=== PATIENT | female | born 1950 | race Caucasian/White ===

== ENCOUNTER 2019-09-23 08:30 | Outpatient (RCR) | payer MEDICARE, OTHER, SELFPAY ==
[2019-06-28 09:21] VITALS: PULSE 61
--- NOTE | 2019-07-01 16:18 | PCCPR ---
Unable to attend today due to inclement weather.
[2019-07-03 17:29] LABS: Glucose Point of Care 85 (65-105)
[2019-07-03 17:29] LABS: Glucose Point of Care 85 (65-105)
--- NOTE | 2019-08-19 08:07 | PCCPR ---
Absent-neck pain
== END 2019-09-23 18:24 | disposition home or self-care (01) ==
LOC: ANHCPREHAB 08:30
PROVIDERS: PCP Family Medicine; Visit Provider Nurse Practitioner Adult Health
DX: Z95.5 Presence of coronary angioplasty implant and graft (principal)
CPT/HCPCS: 93798

== ENCOUNTER 2020-05-19 08:11 | Outpatient (CLI) | payer MEDICARE, OTHER, SELFPAY ==
--- NOTE | ~2020-05-19 | MM_ITS ---
EXAMINATION: MM screening [facility] BI w alvaro HISTORY: Screening mammogram TECHNIQUE: Craniocaudal and mediolateral oblique 3-D tomosynthesis images were obtained and synthetic 2-D images were generated. CAD analysis was submitted and interpreted. COMPARISON: 02/13/2019, 01/29/2018, 12/14/2016 BREAST PARENCHYMAL COMPOSITION: The breasts are heterogeneously dense, which may obscure small masses . FINDINGS: There is no evidence of suspicious mass, calcification, or architectural distortion to sugg est malignancy in either breast. There has been no suspicious interval change. IMPRESSION: 1. No mammographic evidence of malignancy. 2. Recommend routine screening mammography in one year. BI-RADS Category 1: Negative Reviewed, dictated and finalized at location A.
== END 2020-05-19 08:12 | disposition home or self-care (01) ==
PROVIDERS: PCP Family Medicine; Visit Provider Family Medicine
DX: Z12.31 Encounter for screening mammogram for malignant neoplasm of breast (principal)
CPT/HCPCS: 77063; 77067

== ENCOUNTER 2020-12-07 07:39 | Outpatient (CLI) | payer MEDICARE, OTHER, SELFPAY ==
--- NOTE | ~2020-12-07 | MR_ITS ---
EXAMINATION: MR lumbar spine wo con DATE: 12/07/2020 09:06 INDICATION: Low back pain. TECHNIQUE: Magnetic resonance imaging (MRI) of the lumbar spine was performed without intravenous con trast. Sequences included sagittal T2-weighted FSE, sagittal STIR FSE, sagittal T1-weighted FSE, and axial T2-weighted FSE. COMPARISON: Lumbar spine MRI 01/22/2018 FINDINGS: There is 8 degrees dextrocurvature of lumbar spine. There is 4 mm anterolisthesis of L5 on S1. Vertebral body heights are normal. There is mildly decreased disc height at L4-L5 and moderately decreased disc height at L5-S1. The distal spinal cord signal intensity is normal. The conus medullar is is at L2-L3. There are cysts in the kidneys measuring up to 2.1 cm on the left. The following disc levels are specifically discussed: L1-L2: The disc does not extend beyond the endplate margin. There is mild bilateral facet joint osteo arthritis. There is no neural foraminal stenosis. There is no central canal stenosis. L2-L3: The disc does not extend beyond the endplate margin. There is mild bilateral facet joint osteo arthritis. There is no neural foraminal stenosis. There is no central canal stenosis. L3-L4: The disc does not extend beyond the endplate margin. There is mild right and moderate left fac et joint osteoarthritis. There is no neural foraminal stenosis. There is no central canal stenosis. L4-L5: The disc is bulging. There is mild right and severe left facet joint osteoarthritis. There is mild bilateral neural foraminal stenosis. There is mild central canal stenosis. L5-S1: The disc is bulging. There is severe bilateral facet joint osteoarthritis. There is mild bilat eral neural foraminal stenosis. There is no central canal stenosis. IMPRESSION: 1. Mild lumbar spondylosis, stable from 01/22/2018. Reviewed, dictated and finalized at location B.
== END 2020-12-07 07:40 | disposition home or self-care (01) ==
PROVIDERS: PCP Family Medicine; Visit Provider Nurse Practitioner Family
DX: M47.896 Other spondylosis, lumbar region (principal)
CPT/HCPCS: 72148

== ENCOUNTER 2021-04-14 08:14 | Outpatient (CLI) | payer MEDICARE, OTHER, SELFPAY ==
--- NOTE | ~2021-04-14 | DEXA_ITS ---
Bone Density Report Name: Ammy Kiran Age: 70 Sex: Female Ethnicity: White Date of : 1950 Indication: osteopenia; prior fracture; hysterectomy; Referring Provider: Felipe Mckeon Study: Bone densitometry was performed. Exam Date: April 14, 2021 Accession number: [id number] Bone Density: Region BMD T-score Z-score Classification AP Spine (L1-L4) 0.840 -1.9 0.3 Osteopenia Femoral Neck (Left) 0.731 -1.1 0.8 Osteopenia Total Hip (Left) 0.903 -0.3 1.3 Normal Total Hip Bilateral Avg 0.848 -0.8 0.9 Normal Femoral Neck (Right) 0.787 -0.6 1.3 Normal Total Hip (Right) 0.793 -1.2 0.4 Osteopenia World Health Organization criteria for BMD impression classify patients as: Normal (T-score at or above -1.0), Osteopenia (T-score between -1.0 and -2.5), or Osteoporosis (T-score at or below -2.5). 10-year Fracture Risk(1): Major Osteoporotic Fracture 13% Hip Fracture 1.7% Reported Risk Factors: [place] (), Neck BMD=0.731, BMI=21.2, previous fracture (1) FRAX(R) Version 3.08. Fracture probability calculated for an untreated patient. Fracture probability may be lower if the patient has received treatment. Previous Exams: Region Exam Age BMD T-score BMD Change BMD Change Date g/cm2 vs Baseline vs Previous AP Spine(L1-L4) 04/14/2021 70 0.840 -1.9 -0.091(-9.7%)* -0.040(-4.6%)* 02/13/2019 68 0.880 -1.5 -0.050(-5.4%)* -0.050(-5.4%)* 12/14/2016 66 0.931 -1.1 Total Hip(Left) 04/14/2021 70 0.903 -0.3 -0.054(-5.7%)* -0.039(-4.1%)* 02/13/2019 68 0.942 0.0 -0.015(-1.6%) -0.015(-1.6%) 12/14/2016 66 0.957 0.1 Total Hip(Right) 04/14/2021 70 0.793 -1.2 -0.094(-10.6%) -0.030(-3.6%)* 02/13/2019 68 0.823 -1.0 -0.064(-7.2%)* -0.064(-7.2%)* 12/14/2016 66 0.887 -0.5 *Denotes significance at 95% confidence level, LSC for AP Spine = 0.022 g/cm2, LSC for Total Hip = 0.027 g/cm2 Clinical Information Provided by Patient: Has had a low trauma fracture Has used the following medications: Vitamin D, Calcium Has the following medical conditions: Hysterectomy Patient maximum height was 60.0 Menopause Age: 34 Does not regularly consume dairy products Drinks caffeinated beverages Onset of menses at age 7 Number of children 2 Impression: The patient has low bone mass, based on the Total Spine T-score. The patient has an estimated ten-year risk of hip fracture of 1.7% and an estimated ten-year risk of major fractur
== END 2021-04-14 08:15 | disposition home or self-care (01) ==
LOC: ANHIMG 08:17
PROVIDERS: PCP Family Medicine; Visit Provider Family Medicine
DX: Z78.0 Asymptomatic menopausal state (principal); M85.88 Other specified disorders of bone density and structure, other site; M85.852 Other specified disorders of bone density and structure, left thigh; M85.851 Other specified disorders of bone density and structure, right thigh
CPT/HCPCS: 77080

== ENCOUNTER 2021-04-15 01:03 | Day surgery (SDC) | payer MEDICARE, OTHER, SELFPAY ==
[2021-03-31 14:15] VITALS: BMI 21.6
[2021-04-15 09:42] VITALS: BP 139/53; PULSE 64; RESP 20; TEMP 36.8; O2SAT 99; BMI 21.2
[2021-04-15 09:55] LABS: Glucose Point of Care 110 mg/dl (65-105)
--- NOTE | 2021-04-15 10:17 | WPDANESEPPF ---
Anes - Initial Pre Proc Eval Procedure: Operation Date: 04/15/21 10:30 Proposed Procedures p Screening Colonoscopy - Jose Kramer MD Date/Time: 04/15/21 10:17 Surgeon: Jose Kramer MD Pre Op Diagnosis: hx of colon polyps Patient Data Age: 70 Gender: F Height: 1.5 m Weight: 47.6 kg Last Vital Signs Temp 98.2 F 04/15/21 09:42 Pulse 64 04/15/21 09:42 Resp 20 04/15/21 09:42 BP 139/53 L 04/15/21 09:42 Pulse Ox 99 04/15/21 09:42 Allergies Allergy/AdvReac Type Severity Reaction Status Date / Time clindamycin Allergy Intermediate ITCHING, Verified 04/06/21 11:36 HIVES codeine Allergy Unknown nausea and Verified 04/06/21 11:36 vomiting morphine Allergy Unknown SEVERE Verified 04/06/21 11:36 NAUSEA AND VOMITING MEPERIDINE HCL Allergy Unknown B/P GOES Uncoded 04/06/21 11:36 REALLY HIGH PROCHLORPERAZINE EDISYLATE AdvReac Unknown SEVERE Uncoded 04/06/21 11:36 DEPRESSION Home Medications Medication Instructions Recorded Confirmed Type amlodipine [Norvasc] 2.5 mg PO DAILY 06/28/19 04/06/21 History aspirin [Adult Low Dose Aspirin] 81 mg PO DAILY 06/28/19 04/06/21 History bupropion HCl [Wellbutrin XL] 300 mg PO QAM 06/28/19 04/06/21 History fluticasone propionate [Allergy 2 spray INTRANASAL DAILY PRN 06/28/19 04/06/21 History Relief (fluticasone)] hydrocortisone valerate 1 applic TOPICAL DAILY PRN 06/28/19 04/06/21 History lamotrigine [Lamictal] 100 mg PO DAILY 06/28/19 04/06/21 History meclizine 12.5 mg PO BID PRN 06/28/19 04/06/21 History metoprolol tartrate 25 mg PO BID 06/28/19 04/06/21 History nitroglycerin [Nitrostat] 0.4 mg SUBLINGUAL Q5-15M PRN 06/28/19 04/06/21 History olanzapine [Zyprexa] 2.5 mg PO HS 06/28/19 04/06/21 History valacyclovir [Valtrex] 1,000 mg PO DAILY PRN 06/28/19 04/06/21 History ketoconazole 2 % topical cream 1 applic TOPICAL DAILY PRN 10/08/19 04/06/21 History sodium chloride 5 % eye drops 1 drop EACH EYE QID PRN 10/08/19 04/06/21 History blood sugar diagnostic #100 each 02/11/20 04/06/21 Rx lancets #200 each 02/11/20 04/06/21 Rx naloxone 4 mg/actuation nasal spray 4 mg INTRANASAL Q3M PRN #2 ea 08/25/20 04/06/21 Rx atorvastatin 40 mg tablet 40 mg PO DAILY #90 tablet 03/03/21 04/06/21 Rx docusate sodium 100 mg tablet 100 mg PO BID #180 tablet 03/03/21 04/06/21 Rx fenofibrate 160 mg tablet 160 mg PO DAILY #90 tablet 03/03/21 04/06/21 Rx ferrous sulfate 325 mg (65 mg 325 mg PO DAILY #90 tablet 03/03/21 04/06/21 Rx iron) tablet fexofenadine 180 mg tablet 180 mg PO DAILY #90 tablet 03/03/21 04/06/21 Rx linaclotide 290 mcg capsule 290 mcg PO DAILY #90 cap 03/03/21 04/06/21 Rx metformin 500 mg tablet 500 mg PO TID #270 tablet 03/03/21 04/06/21 Rx multivitamin 1 tablet PO DAILY #90 tablet 03/03/21 04/06/21 Rx ondansetron HCl 8 mg tablet 8 mg PO Q12H PRN #30 tablet 03/03/21 04/06/21 Rx pantoprazole 40 mg tablet,delayed 40 mg PO HS #90 tablet 03/03/21 04/06/21 Rx release polyethylene glycol 3350 17 17 g PO DAILY #850 gm 03/03/21 04/06/21 Rx gram/dose oral powder ropinirole 1 mg tablet 1 mg PO BID #180 tablet 03/03/21 04/06/21 Rx cholecalciferol (vitamin D3) 50 2,000 unit PO DAILY #90 tablet 03/11/21 04/06/21 Rx mcg (2,000 unit) tablet lisinopril 20 mg tablet 20 mg PO DAILY #90 tablet 03/11/21 04/06/21 Rx ticagrelor [Brilinta] 60 mg PO BID 03/31/21 04/15/21 History Laboratory Tests 04/15/21 09:52 POC Capillary Glucose 110 mg/dl H mg/dl (65-105) Patient hx anesthesia problems: none Family hx anesthesia problems: none [facility] Past Medical History Medical History (Updated 04/15/21 @ 10:21 by Jeff Jasso MD) Coronary artery disease involving [place] coronary artery of [place] heart Hypertensive heart disease with heart failure Mixed hyperlipidemia JOSAFAT (obstructive sleep apnea) Type 2 diabetes mellitus with hyperglycemia, without long-term current use of insulin Family History Family History (Reviewed 08/11/20 @ 14
--- NOTE | 2021-04-15 10:33 | PM.HPGS ---
History of Present Illness History of Present Illness Consent: Risks, benefits, and alternatives have been discussed and questions answered. Patient agrees to proceed with procedure. Chief complaint: hx of colon polyps Narrative: Ammy Kiran is a 70 year old female here for colon cancer screening. She has history of polyps Review of Systems Review of Systems: All systems reviewed & are unremarkable except as noted in HPI and below PMFSH Past Medical History Medical History Coronary artery disease involving [place] coronary artery of [place] heart Hypertensive heart disease with heart failure Mixed hyperlipidemia JOSAFAT (obstructive sleep apnea) Type 2 diabetes mellitus with hyperglycemia, without long-term current use of insulin Family History Family History Mother Diabetes mellitus Acute myocardial infarction Cerebrovascular accident Depression Sibling Malignant neoplasm of prostate Family history of coronary artery disease Carcinoma of colon Father Diabetes mellitus Acute myocardial infarction Family history of coronary artery disease Sibling Diabetes mellitus Acute myocardial infarction Depression Other Family history of allergic disorder Family history of arthritis Family history of cardiovascular disease Family history of malignant neoplasm Hypertension Social History Social History Smoking status: Never smoker Second hand tobacco smoke exposure: No Alcohol intake: never Substance use: never Substance use type: does not use Living arrangements: with family Gender identity (if verbalized by the patient): Female Spiritual care concerns: No Meds Home Medications and Allergies Home Medications Medication Instructions Recorded Confirmed Type amlodipine [Norvasc] 2.5 mg PO DAILY 06/28/19 04/06/21 History aspirin [Adult Low Dose Aspirin] 81 mg PO DAILY 06/28/19 04/06/21 History bupropion HCl [Wellbutrin XL] 300 mg PO QAM 06/28/19 04/06/21 History fluticasone propionate [Allergy 2 spray INTRANASAL DAILY PRN 06/28/19 04/06/21 History Relief (fluticasone)] hydrocortisone valerate 1 applic TOPICAL DAILY PRN 06/28/19 04/06/21 History lamotrigine [Lamictal] 100 mg PO DAILY 06/28/19 04/06/21 History meclizine 12.5 mg PO BID PRN 06/28/19 04/06/21 History metoprolol tartrate 25 mg PO BID 06/28/19 04/06/21 History nitroglycerin [Nitrostat] 0.4 mg SUBLINGUAL Q5-15M PRN 06/28/19 04/06/21 History olanzapine [Zyprexa] 2.5 mg PO HS 06/28/19 04/06/21 History valacyclovir [Valtrex] 1,000 mg PO DAILY PRN 06/28/19 04/06/21 History ketoconazole 2 % topical cream 1 applic TOPICAL DAILY PRN 10/08/19 04/06/21 History sodium chloride 5 % eye drops 1 drop EACH EYE QID PRN 10/08/19 04/06/21 History blood sugar diagnostic #100 each 02/11/20 04/06/21 Rx lancets #200 each 02/11/20 04/06/21 Rx naloxone 4 mg/actuation nasal spray 4 mg INTRANASAL Q3M PRN #2 ea 08/25/20 04/06/21 Rx atorvastatin 40 mg tablet 40 mg PO DAILY #90 tablet 03/03/21 04/06/21 Rx docusate sodium 100 mg tablet 100 mg PO BID #180 tablet 03/03/21 04/06/21 Rx fenofibrate 160 mg tablet 160 mg PO DAILY #90 tablet 03/03/21 04/06/21 Rx ferrous sulfate 325 mg (65 mg 325 mg PO DAILY #90 tablet 03/03/21 04/06/21 Rx iron) tablet fexofenadine 180 mg tablet 180 mg PO DAILY #90 tablet 03/03/21 04/06/21 Rx linaclotide 290 mcg capsule 290 mcg PO DAILY #90 cap 03/03/21 04/06/21 Rx metformin 500 mg tablet 500 mg PO TID #270 tablet 03/03/21 04/06/21 Rx multivitamin 1 tablet PO DAILY #90 tablet 03/03/21 04/06/21 Rx ondansetron HCl 8 mg tablet 8 mg PO Q12H PRN #30 tablet 03/03/21 04/06/21 Rx pantoprazole 40 mg tablet,delayed 40 mg PO HS #90 tablet 03/03/21 04/06/21 Rx release polyethylene glycol 3350 17 17 g PO DAILY #850 gm 03/03/21 04/06/21 Rx gram/dose oral powder ropinirole 1 mg tablet
[2021-04-15] MEDS: LACTATED RINGERS 1,000 ML 150 ML IV CONT (11:06)
[2021-04-15 11:10] VITALS: BP 119/62; PULSE 65; RESP 20; O2SAT 99
[2021-04-15 11:20] VITALS: BP 140/63; PULSE 62; RESP 18; O2SAT 100
[2021-04-15 11:30] VITALS: BP 150/70; PULSE 60; RESP 20; O2SAT 100
== END 2021-04-15 11:28 | disposition home or self-care (01) ==
PROVIDERS: PCP Family Medicine; Visit Provider Internal Medicine Gastroenterology
PROC: 0DJD8ZZ Inspection of Lower Intestinal Tract, Via Natural or Artificial Opening Endoscopic (ICD-10-PCS; CPT 45378; principal; 2021-04-15 10:30)
DX: Z12.11 Encounter for screening for malignant neoplasm of colon (principal); D12.5 Benign neoplasm of sigmoid colon; I11.0 Hypertensive heart disease with heart failure; I50.9 Heart failure, unspecified; I25.10 Atherosclerotic heart disease of native coronary artery without angina pectoris; E11.65 Type 2 diabetes mellitus with hyperglycemia; E78.2 Mixed hyperlipidemia; G47.33 Obstructive sleep apnea (adult) (pediatric)
CPT/HCPCS: 45380; 82948; 88305; J7120

== ENCOUNTER → 2021-06-23 10:24 | Outpatient (CLI) | payer MEDICARE, OTHER, SELFPAY ==
--- NOTE | ~2021-06-23 | XR_ITS ---
EXAMINATION: XR wrist LT min 3V DATE: 06/23/2021 10:42 INDICATION: Left wrist pain TECHNIQUE: Posteroanterior, ulnar deviation, oblique, and lateral views of the left wrist were obtain ed. COMPARISON: 10/21/2014 FINDINGS: There are changes of interval trapezium resection. There is moderate osteoarthritis at the scaphoid/trapezoid joint. No fracture is identified. The soft tissues are unremarkable. IMPRESSION: 1. Interval surgical change without acute osseous abnormality. Reviewed, dictated and finalized at location B.
== END ==
PROVIDERS: PCP Family Medicine; Visit Provider Family Medicine
DX: M19.032 Primary osteoarthritis, left wrist (principal)
CPT/HCPCS: 73110

== ENCOUNTER 2021-07-16 09:03 | Outpatient (CLI) | payer MEDICARE, OTHER, SELFPAY ==
--- NOTE | ~2021-07-16 | MM_ITS ---
EXAMINATION: MM screening [facility] BI w alvaro HISTORY: Screening mammogram TECHNIQUE: Craniocaudal and mediolateral oblique 3-D tomosynthesis images were obtained and synthetic 2-D images were generated. CAD analysis was submitted and interpreted. COMPARISON: No prior mammogram is available for comparison at this institution. BREAST PARENCHYMAL COMPOSITION: The breasts are heterogeneously dense, which may obscure small masses . FINDINGS: Scattered bilateral benign calcifications are noted. There is no evidence of suspicious mas s, calcification, or architectural distortion to suggest malignancy in either breast. There has been no suspicious interval change. IMPRESSION: 1. No mammographic evidence of malignancy. 2. Recommend routine screening mammography in one year. BI-RADS Category 2: Benign finding(s). Reviewed, dictated and finalized at location A. 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
== END 2021-07-16 09:04 | disposition home or self-care (01) ==
LOC: ANHIMG 09:06
PROVIDERS: PCP Family Medicine; Visit Provider Family Medicine
DX: Z12.31 Encounter for screening mammogram for malignant neoplasm of breast (principal)
CPT/HCPCS: 77063; 77067

== ENCOUNTER → 2021-07-27 16:21 | Outpatient (CLI) | payer MEDICARE, OTHER, SELFPAY ==
--- NOTE | ~2021-07-27 | XR_ITS ---
EXAMINATION: XR knee RT 3V DATE: 07/27/2021 16:52 INDICATION: Right knee pain TECHNIQUE: Three views of the right knee were obtained. COMPARISON: 11/07/2017 FINDINGS: There are changes of total knee arthroplasty. No hardware failure or loosening is identifie d. There is no fracture. No joint effusion/synovitis. Soft tissues are unremarkable. IMPRESSION: 1. Changes of knee joint effusion without acute abnormality identified. Reviewed, dictated and finalized at location A. 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
== END ==
PROVIDERS: PCP Family Medicine; Visit Provider Family Medicine
DX: M25.461 Effusion, right knee (principal)
CPT/HCPCS: 73562

== ENCOUNTER → 2022-03-10 14:39 | Outpatient (CLI) | payer MEDICARE, OTHER, SELFPAY ==
--- NOTE | ~2022-03-10 | XR_ITS ---
EXAMINATION: XR_CERV2-3V_CR DATE: 03/10/2022 15:07 INDICATION: Neck pain. TECHNIQUE: 3 views of cervical spine were obtained. COMPARISON: cervical spine radiographs 07/03/2013, CT cervical spine 08/20/2018 FINDINGS: There is 2 mm anterolisthesis of C7 on T1. There is 4 degrees levocurvature of cervical spi ne. Vertebral body heights are normal. There is severely decreased disc height at C5-C6 and moderatel y decreased disc height at C6-C7. There is ankylosis of the facet joints at C2-C3. There is severe bi lateral facet joint osteoarthritis from C3-C4 through C7-T1. There is mild central canal stenosis at C5-C6 and C6-C7. No prevertebral soft tissue swelling. IMPRESSION: 1. Severe cervical spondylosis. Reviewed, dictated and finalized at location A.
== END ==
PROVIDERS: PCP Family Medicine; Visit Provider Nurse Practitioner Family
DX: M47.892 Other spondylosis, cervical region (principal)
CPT/HCPCS: 72040

== ENCOUNTER 2022-06-29 09:39 | Outpatient (CLI) | payer MEDICARE, OTHER, SELFPAY ==
--- NOTE | 2022-06-29 10:56 | ECG_ITS ---
Measurements Intervals [place] Rate: 60 P: 39 MS: 170 QRS: -24 QRSD: 85 T: -7 QT: 407 QTc: 408 Interpretive Statements SINUS RHYTHM EARLY PRECORDIAL R/S TRANSITION LEFT VENTRICULAR HYPERTROPHY BORDERLINE T WAVE ABNORMALITY- INFERIOR LEADS BASELINE ARTIFACT- I, II, III, AVR, AVL, AVF, V6 BORDERLINE ECG COMPARED TO ECG 06/06/2019 08:51:18 T WAVE ABNORMALITY IN ANT/LAT LEADS- CONSIDER ISCHEMIA RESOLVED Electronically Signed On 06-29-2022 11:54:12 GEAR GRINDER by Hemanth Gutierrez D.O.
[2022-06-29 11:28] LABS: Hematocrit 37.7 % (37.0-47.0); Hemoglobin 11.8 g/dL (12.0-15.0)
[2022-06-29 11:37] LABS: Anion Gap 15 mmol/L (8-16); Blood Urea Nitrogen 32 mg/dL (7-17); Calcium 9.9 mg/dL (8.4-10.2); Carbon Dioxide 22 mmol/L (22-30); Chloride 106 mmol/L (98-107); Estimated Glomerular Filt Rate 34; Glucose 110 mg/dL (65-110); Potassium 4.6 mmol/L (3.4-5.0); Sodium 143 mmol/L (137-145)
[2022-06-29 11:38] LABS: Prothrombin Time 12.9 Seconds (11.1-14.7)
== END 2022-06-29 09:40 | disposition home or self-care (01) ==
LOC: ANHSURGERY 09:47
PROVIDERS: Anesthesiology; PCP Family Medicine; Visit Provider Urology
DX: N81.6 Rectocele (principal); E11.29 Type 2 diabetes mellitus with other diabetic kidney complication; D50.9 Iron deficiency anemia, unspecified; Z01.818 Encounter for other preprocedural examination; I12.9 Hypertensive chronic kidney disease with stage 1 through stage 4 chronic kidney disease, or unspecified chronic kidney disease; N18.9 Chronic kidney disease, unspecified; R94.31 Abnormal electrocardiogram [ECG] [EKG]
CPT/HCPCS: 36415; 80048; 85014; 85018; 85610; 85730; 87077; 87086; 87186; 93005

== ENCOUNTER 2022-07-08 01:22 | Day surgery (SDC) | payer MEDICARE, OTHER, SELFPAY ==
--- NOTE | 2022-06-29 09:47 | PC.NURSE ---
Report to the Outpatient Waiting Room, entrance under the green pavilion located off [facility], at time __7:30AM on date __07/08/22 . Planned Procedure Time: __9:30AM . Time changes happen often and if your time is changed the preop area will call you the afternoon before. - You and your visitor will be asked to self-screen and do not enter if you have any COVID symptoms. - We encourage only one visitor and NO visitors under age 16 are allowed at this time. Your visitor will receive communication by the phone number that is given day of service. - The patient visitor is requested to social distance or may leave the building when not with patient due to restrictions. - A mask is required within the hospital. Patients may have clear liquids (water, carbonated beverages, clear teas, apple juice) until 3 hours prior to surgery with a maximum of 20 ounces. - No food from midnight until time of surgery Take the following medications with a SIP of water the morning of surgery: _AMLODIPINE, BUPROPION, LAMOTRIGINE, MECLIZINE NEEDED, METOPROLOL, EYE DROPS, ONDANSETRON & SCOPOLAMINE PATCH NEEDED Medications to discontinue per physician ___HOLD ASPIRIN 7 DAYS PRE-OP- LAST DOSE 07/01/22, HOLD BRILINTA PER DR FAN* PATIENT CHECKING WITH OFFICE, HOLD VITAMINS/SUPPLEMENTS 3 DAYS PRE-OP - LAST DOSE 07/04/22 Please no make-up, nail yemeni, hairspray, perfume, deodorant, or body powder the day of surgery. No jewelry (including any body piercings) or valuables the day of surgery, leave them at home. Please take a shower or bath the night before, or the morning of, surgery with an antibacterial soap. Wear comfortable, loose fitting clothing. Children are encouraged to wear pajamas. - Jewelry must be removed prior to entering the operating room. Rings and piercings that are not removed may be cut off. - The hospital will not accept responsibility for valuables. - Please leave all valuables, including medications, at home the day of surgery. If you are going home after surgery, a licensed show horse driver must drive you home. - NO public transportation without another adult. - We recommend that an adult stay with you for 24 hours following discharge. - We also recommend that you do not drive, make important decision, drink alcoholic beverages, or take any drugs that were not prescribed by your health care provider for at least 24 hours after your discharge time. Follow any additional instructions given to you from your surgeon. If you or anyone in your household have experienced Covid symptoms in the past week, please notify your surgeon or the nurse liaison at the phone number below for possible testing. Telephone instructions given to __PATIENT and asked if any additional questions and then verbalized understanding. Patient advised to call surgeon office or pre surgery nurse liaison [phone] if any additional questions.
[2022-06-29 10:20] VITALS: BP 142/64; PULSE 60; RESP 16; TEMP 37.4; O2SAT 96; BMI 25.7
--- NOTE | 2022-07-03 13:55 | PM.IMHP ---
H&P: HPI History of Present Illness Date/Time: 07/03/22 13:55 Chief Complaint: prolapse and stress incontinence Narrative: she has had multiple prolapse operations. She has had a stress incontinence procedure in the past. She has a rectocele which is symptomatic. 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 We discussed all options. She is here for surgical correction. 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 Hypertensive heart disease with heart failure Mixed hyperlipidemia JOSAFAT (obstructive sleep apnea) Type 2 diabetes mellitus with hyperglycemia, without long-term current use of insulin Family History Family History Mother Diabetes mellitus Acute myocardial infarction Cerebrovascular accident Depression Sibling Malignant neoplasm of prostate Family history of coronary artery disease Carcinoma of colon Father Diabetes mellitus Acute myocardial infarction Family history of coronary artery disease Sibling Diabetes mellitus Acute myocardial infarction Depression Other Family history of allergic disorder Family history of arthritis Family history of cardiovascular disease Family history of malignant neoplasm Hypertension Social History Social History Social History: Smoking status: Never smoker Second hand tobacco smoke exposure: No Alcohol intake: never Substance use: never Substance use type: does not use Additional living arrangements comments: HUSB Gender identity (if verbalized by the patient): Female Sexual Orientation (if Verbalized by the Patient): Straight or Heterosexual Spiritual care concerns: No Meds Home Medications and Allergies Home Medications Medication Instructions Recorded Confirmed Type amlodipine 2.5 mg tablet (Norvasc) 2.5 mg PO DAILY 06/28/19 06/29/22 History aspirin 81 mg tablet,delayed 81 mg PO DAILY 06/28/19 06/29/22 History release (Adult Low Dose Aspirin) bupropion HCl 300 mg 24 hr tablet, 300 mg PO QAM 06/28/19 06/29/22 History extended release (Wellbutrin XL) fluticasone propionate 50 2 spray intranasal DAILY PRN 06/28/19 06/29/22 History mcg/actuation nasal allergies spray,suspension (Allergy Relief (fluticasone)) lamotrigine 100 mg tablet 100 mg PO DAILY 06/28/19 06/29/22 History (Lamictal) metoprolol tartrate 25 mg tablet 25 mg PO BID 06/28/19 06/29/22 History nitroglycerin 0.4 mg sublingual 0.4 mg sublingual Q5-15M PRN Chest 06/28/19 06/29/22 History tablet (Nitrostat) Pain olanzapine 2.5 mg tablet (Zyprexa) 2.5 mg PO HS 06/28/19 06/29/22 History valacyclovir 1 gram tablet 1,000 mg PO DAILY PRN Cold Sores 06/28/19 06/29/22 History (Valtrex) ketoconazole 2 % topical cream 1 applic topical DAILY PRN Rash 10/08/19 06/29/22 History sodium chloride 5 % eye drops 1 drop ophthalmic (eye) QID PRN 10/08/19 06/29/22 History ([place] [address]) Dry Eyes naloxone 4 mg/actuation nasal 4 mg intranasal Q3M PRN opioid 08/25/20 06/29/22 Rx spray (Narcan) overdose #2 ea ticagrelor 60 mg tablet (Brilinta) 60 mg PO BID 03/31/21 06/29/22 History atorvastatin 40 mg tablet 40 mg PO DAILY #90 tabs 09/06/21 06/29/22 Rx blood sugar diagnostic (FreeStyle #100 ea 09/06/21 03/08/22 Rx Lite Strips) cholecalciferol (vitamin D3) 50 2,000 unit PO DAILY #90 tabs 09/06/21 06/29/22 Rx mcg (2,000 unit) tablet (Vitamin D3) docusate sodium 100 mg tablet 100 mg PO BID #180 tabs 09/06/21 06/29/22 Rx fenofibrate 160 mg tablet 160 mg PO DAILY #90 tabs 09/06/21 06/29/22 Rx ferrous sulfate 325 mg
--- NOTE | 2022-07-07 14:12 | WPDANESEPPF ---
Anes - Initial Pre Proc Eval Procedure: Operation Date: 07/08/22 09:30 Proposed Procedures p Rectocele Repair - Aubrey Stapleton MD s Cystoscopy with Bulkamid Injection - Aubrey Stapleton MD Date/Time: 07/07/22 14:12 Surgeon: Aubrey Stapleton MD Pre Op Diagnosis: rectocele Patient Data Age: 72 Gender: F Height: 1.5 m Weight: 57.7 kg Last Vital Signs Temp 37.4 C 06/29/22 10:20 Pulse 60 06/29/22 10:20 Resp 16 06/29/22 10:20 BP 142/64 H 06/29/22 10:20 Pulse Ox 96 06/29/22 10:20 O2 Del Method Room Air 06/29/22 10:20 Allergies Allergy/AdvReac Type Severity Reaction Status Date / Time clindamycin Allergy Intermediate ITCHING, Verified 06/29/22 10:03 HIVES codeine AdvReac Unknown nausea and Verified 06/29/22 10:03 vomiting morphine AdvReac Unknown SEVERE Verified 06/29/22 10:03 NAUSEA AND VOMITING MEPERIDINE HCL Allergy Unknown B/P GOES Uncoded 06/29/22 10:03 REALLY HIGH, SEVERE BOGGS PROCHLORPERAZINE EDISYLATE AdvReac Unknown SEVERE Uncoded 06/29/22 10:03 DEPRESSION Home Medications Medication Instructions Recorded Confirmed Type amlodipine 2.5 mg tablet (Norvasc) 2.5 mg PO DAILY 06/28/19 07/08/22 History aspirin 81 mg tablet,delayed 81 mg PO DAILY 06/28/19 07/08/22 History release (Adult Low Dose Aspirin) bupropion HCl 300 mg 24 hr tablet, 300 mg PO QAM 06/28/19 07/08/22 History extended release (Wellbutrin XL) fluticasone propionate 50 2 spray intranasal DAILY PRN 06/28/19 07/08/22 History mcg/actuation nasal allergies spray,suspension (Allergy Relief (fluticasone)) lamotrigine 100 mg tablet 100 mg PO DAILY 06/28/19 07/08/22 History (Lamictal) metoprolol tartrate 25 mg tablet 25 mg PO BID 06/28/19 07/08/22 History nitroglycerin 0.4 mg sublingual 0.4 mg sublingual Q5-15M PRN Chest 06/28/19 07/08/22 History tablet (Nitrostat) Pain olanzapine 2.5 mg tablet (Zyprexa) 2.5 mg PO HS 06/28/19 07/08/22 History valacyclovir 1 gram tablet 1,000 mg PO DAILY PRN Cold Sores 06/28/19 07/08/22 History (Valtrex) ketoconazole 2 % topical cream 1 applic topical DAILY PRN Rash 10/08/19 07/08/22 History sodium chloride 5 % eye drops 1 drop ophthalmic (eye) QID PRN 10/08/19 07/08/22 History (Anderson 128) Dry Eyes naloxone 4 mg/actuation nasal 4 mg intranasal Q3M PRN opioid 08/25/20 07/08/22 Rx spray (Narcan) overdose #2 ea ticagrelor 60 mg tablet (Brilinta) 60 mg PO BID 03/31/21 07/08/22 History atorvastatin 40 mg tablet 40 mg PO DAILY #90 tabs 09/06/21 07/08/22 Rx blood sugar diagnostic (FreeStyle #100 ea 09/06/21 07/08/22 Rx Lite Strips) cholecalciferol (vitamin D3) 50 2,000 unit PO DAILY #90 tabs 09/06/21 07/08/22 Rx mcg (2,000 unit) tablet (Vitamin D3) docusate sodium 100 mg tablet 100 mg PO BID #180 tabs 09/06/21 07/08/22 Rx fenofibrate 160 mg tablet 160 mg PO DAILY #90 tabs 09/06/21 07/08/22 Rx ferrous sulfate 325 mg (65 mg 325 mg PO DAILY #90 tabs 09/06/21 07/08/22 Rx iron) tablet fexofenadine 180 mg tablet 180 mg PO DAILY #90 tabs 09/06/21 07/08/22 Rx lancets #200 ea 09/06/21 07/08/22 Rx linaclotide 290 mcg capsule 290 mcg PO DAILY #90 caps 09/06/21 07/08/22 Rx (Linzess) lisinopril 20 mg tablet 20 mg PO DAILY #90 tabs 09/06/21 07/08/22 Rx meclizine 25 mg tablet 12.5 mg PO BID PRN Motion Sickness 09/06/21 07/08/22 Rx #180 tabs multivitamin 1 tablet PO DAILY #90 tabs 09/06/21 07/08/22 Rx ondansetron HCl 8 mg tablet 8 mg PO Q12H PRN Nausea #30 tabs 09/06/21 07/08/22 Rx pantoprazole 40 mg tablet,delayed 40 mg PO HS #90 tabs 09/06/21 07/08/22 Rx release polyethylene glycol 3350 17 17 g PO DAILY #850 grams 09/06/21 07/08/22 Rx gram/dose oral powder (Miralax) ropinirole 1 mg tablet 1 mg PO BID #180 tabs 09/06/21 07/08/22 Rx metformin 500 mg tablet 500 mg PO BID #180 tabs 10/15/21 07/08/22 Rx scopolamine base 1 mg over 3 days 1 patch transdermal Q3D PRN motion 11/02/21 07/08/22 Rx transdermal patch bianca
[2022-07-08] VITALS (9 sets, daily range): BP systolic 125–161; BP diastolic 52–88; PULSE 59–83; RESP 12–83; TEMP 36.7–36.9; O2SAT 96–100
--- NOTE | 2022-07-08 07:13 | WPDHPUPDATE1 ---
History and Physical Update Update Date/Time: 07/08/22 07:13 History and Physical has been reviewed, including an updated exam of the patient. There are NO changes in the patient's condition. Risks, benefits, and alternatives have been discussed and questions answered. Patient agrees to proceed with procedure.
[2022-07-08] MEDS: LACTATED RINGERS 1,000 ML 30 ML IV CONT (08:15)
[2022-07-08 08:28] LABS: Glucose Point of Care 110 mg/dl (65-105)
[2022-07-08] MEDS: ceFAZolin 2 GM/D5W 50 ML 2 GM/50 ML BAG IVPB (09:24)
[2022-07-08] MEDS: LIDO 2%/EPINEPHRINE 1:100,000 50 ML VIAL 20 ML INFILTRATE (09:46)
[2022-07-08] MEDS: LIDOCAINE HCL 2% GEL UROJET 10 ML PKG MUCOUS MEM (10:12)
--- NOTE | 2022-07-08 10:32 | P.OP_ITS ---
Procedure Note - Detailed Date of Procedure 07/08/22 Pre-op Diagnosis rectocele , female perineal laxity. Intrinsic sphincter deficiency Post-op Diagnosis Same Procedure Performed Rectocele repair Perineal repair Cystoscopy injection of bulking agent Surgeon Aubrey Stapleton MD Anesthesia General Indications This woman sent multiple prolapse repairs. She has had a stress incontinence procedure in the past. She has no cystocele. She has a rectocele/enterocele. 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 She presents for the above. She understands risks of bleeding, infection, damage to bowel or surrounding organs, fistula formation, postoperative incontinence, postop retent ion requiring catheterization, need for ancillary procedures, hip and leg pain, dyspareunia. She declined colpocleisis. She is not sexually active. She understands she is at high risk of failure due to her multiple prolapse procedures Findings Successful prolapse repair. Extremely thin vaginal tissues and of poor quality. Description of Procedure She has correctly identified. Informed consent obtained. She from the operating room. She was given general anesthesia. She was placed in the dorsal lithotomy position. She was prepped and draped in a sterile fashion. Time-out performed. I placed a [place] retractor. I placed a Sotomayor catheter. She has no cystocele. She has a fixed urethra. Her posterior vaginal wall shows a rectocele/enterocele to the level of the introitus. I grasped the rectocele with Allis clamps. I infiltrated the taste tissues with local mixed with epinephrine. I made a midline vaginal incision. I dissected out laterally taking great care not to injure the vaginal wall or the underlying bowel. Of note the vaginal wall tissues were quite thin, atrophic, and of poor quality. I dissected out laterally. I also dissected out towards the apex. There was quite a bit of scarring apically. I then performed a plication rectocele/enterocele repair. I did not enter the peritoneum. I performed a plication with interrupted 0 Vicryl sutures. I then trimmed excess vaginal mucosa. I closed the vaginal mucosa with a running 2-0 Vicryl suture. There wa s excellent support of the rectocele/enterocele. I then anesthetized a sami- shaped area of skin on the perineum. I removed this area of skin. I performed a perineorrhaphy. I used 0 Vicryl sutures. I then used 2-0 Vicryl to close mucosa to mucosa. I was overall happy with the prolapse repair. I then turned my attention towards the bulking agent. Brief cystoscopy revealed a cellule and some mild trabeculations in the bladder. No tumors or other abnormalities. Ureters were normal. Urethra was open consistent with intrinsic sphincter deficiency. I injected my for bulking agent circumferentially. I formed 4 pillows collapsing the urethra. I did this 2 cm distal the bladder neck. I left the bladder partially full. I re-examined the repair. There was excellent hemostasis. On rectal exam there is no evidence of rectal or bowel injury. She was awakened and transferred to PACU in stable condition. Estimated Blood Loss -5.0 Drains No Packing No Pathology None sent Complications No immediate complications Disposition PACU
[2022-07-08 10:33] LABS: Glucose Point of Care 112 mg/dl (65-105)
== END 2022-07-08 12:30 | disposition home or self-care (01) ==
PROVIDERS: PCP Family Medicine; Visit Provider Urology
PROC: 0JQC0ZZ Repair Pelvic Region Subcutaneous Tissue and Fascia, Open Approach (ICD-10-PCS; CPT 45560; principal; 2022-07-08 09:30)
PROC: 3E0K8GC Introduction of Other Therapeutic Substance into Genitourinary Tract, Via Natural or Artificial Opening Endoscopic (ICD-10-PCS; CPT 57250; 2022-07-08 09:30)
DX: N81.6 Rectocele (principal); N36.42 Intrinsic sphincter deficiency (ISD); I25.10 Atherosclerotic heart disease of native coronary artery without angina pectoris; I13.10 Hypertensive heart and chronic kidney disease without heart failure, with stage 1 through stage 4 chronic kidney disease, or unspecified chronic kidney disease; E11.22 Type 2 diabetes mellitus with diabetic chronic kidney disease; N18.9 Chronic kidney disease, unspecified; E78.2 Mixed hyperlipidemia; G47.33 Obstructive sleep apnea (adult) (pediatric); Z79.82 Long term (current) use of aspirin; Z79.01 Long term (current) use of anticoagulants; Z79.84 Long term (current) use of oral hypoglycemic drugs
CPT/HCPCS: 57250; 51715; 82948; J0690; J1100; J2405; J2704; J3010; J7030; J7120; L8606

== ENCOUNTER 2022-10-06 08:10 | Outpatient (CLI) | payer MEDICARE, OTHER, SELFPAY ==
--- NOTE | ~2022-10-06 | MM_ITS ---
EXAMINATION: MM screening [place] BI w alvaro HISTORY: Screening mammogram TECHNIQUE: Craniocaudal and mediolateral oblique 3-D tomosynthesis images were obtained and synthetic 2-D images were generated. CAD analysis was submitted and interpreted. COMPARISON: 07/16/2021, 05/19/2020, 02/13/2019 bilateral screening mammogram examinations BREAST PARENCHYMAL COMPOSITION: The breasts are heterogeneously dense, which may obscure small masses . FINDINGS: Occasional bilateral benign calcifications. There is no evidence of suspicious mass, calcif ication, or architectural distortion to suggest malignancy in either breast. There has been no suspic ious interval change. IMPRESSION: 1. No mammographic evidence of malignancy. 2. Recommend routine screening mammography in one year. BI-RADS Category 2: Benign finding(s). Reviewed, dictated and finalized at location A. 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
== END 2022-10-06 08:11 | disposition home or self-care (01) ==
PROVIDERS: PCP Family Medicine; Visit Provider Family Medicine
DX: Z12.31 Encounter for screening mammogram for malignant neoplasm of breast (principal)
CPT/HCPCS: 77063; 77067

== ENCOUNTER 2023-08-16 08:23 | Outpatient (CLI) | payer MEDICARE, OTHER, SELFPAY ==
--- NOTE | ~2023-08-16 | DEXA_ITS ---
Bone Density Report Name: VILMA PAT Age: 73 Sex: Female Ethnicity: White Date of : 1950 Indication: osteopenia; monitoring treatment; hysterectomy; rheumatoid arthritis; Referring Provider: SCAR BROWNING Study: Bone densitometry was performed. Exam Date: August 16, 2023 Accession number: [id number] Bone Density: Region BMD T-score Z-score Classification AP Spine(L1-L4) 0.867 -1.6 0.7 Osteopenia Femoral Neck (Left) 0.708 -1.3 0.8 Osteopenia Total Hip (Left) 0.856 -0.7 1.0 Normal World Health Organization criteria for BMD impression classify patients as: Normal (T-score at or above -1.0), Osteopenia (T-score between -1.0 and -2.5), or Osteoporosis (T-score at or below -2.5). 10-year Fracture Risk: FRAX not reported because: Treated for osteoporosis Previous Exams: Region Exam Age BMD T-score BMD Change BMD Change Date g/cm2 vs Baseline vs Previous AP Spine (L1-L4) 08/16/2023 73 0.867 -1.6 -0.064 (-6.8%) 0.027 (3.2%)* 04/14/2021 70 0.840 -1.9 -0.091 (-9.7%) -0.040 (-4.6%) 02/13/2019 68 0.880 -1.5 -0.050 (-5.4%) -0.050 (-5.4%) 12/14/2016 66 0.931 -1.1 Total Hip(Left) 08/16/2023 73 0.856 -0.7 -0.101 (-10.6% -0.047 (-5.2%) 04/14/2021 70 0.903 -0.3 -0.054 (-5.7%) -0.039 (-4.1%) 02/13/2019 68 0.942 0.0 -0.015 (-1.6%) -0.015 (-1.6%) 12/14/2016 66 0.957 0.1 *Denotes significance at 95% confidence level, LSC for AP Spine = 0.022 g/cm2, LSC for Total Hip = 0.027 g/cm2 Clinical Information Provided by Patient: Has rheumatoid arthritis Is being treated for osteoporosis Has used the following medications: Vitamin D, Calcium Has the following medical conditions: Hysterectomy Patient maximum height was 60 Menopause Age: 34 Drinks caffeinated beverages Onset of menses at age 8 Number of children 2 Impression: The patient has low bone mass, based on the Total Spine T-score. The BMD for the Total Hip(Left) decreased, changing by -5.2% since the last DXA exam. Discussion: SIGNIFICANT BONE LOSS OBSERVED. Adherence to therapy (including calcium and vitamin D intake) should be assessed. If compliance is not a factor, review management and exclusion of secondary causes of bone loss. It is important to ask patients whether they are taking their medications and to encourage continued and appropriate compliance with their osteoporosis therapies to reduce fracture risk. It is also important to review their risk factors and encourage appropriate calcium and vitamin D intakes, exercise,
== END 2023-08-16 08:24 | disposition home or self-care (01) ==
LOC: ANHIMG 08:24
PROVIDERS: PCP Family Medicine; Visit Provider Family Medicine
DX: Z78.0 Asymptomatic menopausal state (principal); M85.88 Other specified disorders of bone density and structure, other site; M85.852 Other specified disorders of bone density and structure, left thigh
CPT/HCPCS: 77080

== ENCOUNTER → 2023-09-12 08:33 | Outpatient (CLI) | payer MEDICARE, OTHER, SELFPAY ==
--- NOTE | ~2023-09-12 | MR_ITS ---
MRI of the cervical spine Clinical History: Radiculopathy Technique: Axial T2-weighted and gradient images, and sagittal T1-weighted, T2-weighted, and STIR dirk ges were acquired. Findings: There is no fracture or subluxation of the cervical spine. Vertebral bodies maintain normal height and alignment. No suspicious bone marrow signal abnormality seen. At C2-C3, there is no disc bulge or herniation. No spinal canal stenosis, cord compression, or neural foraminal narrowing. At C3-C4, there is mild disc osteophyte complex. No spinal canal stenosis or cord compression. There is bilateral neural foraminal narrowing, left worse than right, with bilateral facet arthropathy. At C4-C5, there is minimal disc osteophyte complex. There is minimal canal stenosis without rodríguez cor d compression. There is bilateral neural foraminal narrowing with bilateral facet arthropathy. At C5-C6, there is disc osteophyte complex. No rodríguez canal stenosis or cord compression. There is marcelina ateral neural foraminal narrowing, right worse than left, with bilateral facet arthropathy. At C6-C7, there is disc osteophyte complex without cord compression or canal stenosis. Neural foramin a are preserved, despite mild facet arthropathy bilaterally. No abnormal signal seen in the spinal cord. Paravertebral soft tissues are unremarkable. Impression: [id number] degenerative spondylosis, as above. Reviewed, dictated and finalized at [facility]. 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
== END ==
PROVIDERS: PCP Nurse Practitioner Family; Visit Provider Nurse Practitioner Family
DX: M43.02 Spondylolysis, cervical region (principal)
CPT/HCPCS: 72141

== ENCOUNTER 2023-12-11 08:07 | Emergency (ER) | payer MEDICARE, OTHER, SELFPAY ==
--- NOTE | 2023-12-11 08:12 | ED.SKABFB ---
HPI - Skin/Abscess/Foreign Bdy General Chief complaint: Skin/Abscess/Foreign Body Stated complaint: Bug Bite Time Seen by Provider: 12/11/23 08:40 Source: patient and RN notes reviewed Mode of arrival: ambulatory Limitations: dementia History of Present Illness HPI narrative: 73-year-old female presents concern for a bug bite to her right forearm. Reports on Monday she was shopping for plants when she felt a sting on her right forearm. Reports she removed the a ?black spot? from the sting site later that day. She reports since then the area has become tender, swollen and discolored. She reports she had 1 episode of vomiting on Monday. She denies fever, aches, chills, sweats. She denies swollen lips, swollen tongue, trouble breathing. She denies itching MD complaint: other (Redness) Related Data Home Medications Medication Instructions Recorded Confirmed aspirin 81 mg tablet,delayed 81 mg PO DAILY 06/28/19 09/19/23 release (Adult Low Dose Aspirin) bupropion HCl 300 mg 24 hr tablet, 300 mg PO QAM 06/28/19 09/19/23 extended release (Wellbutrin XL) fluticasone propionate 50 2 spray intranasal DAILY PRN 06/28/19 09/19/23 mcg/actuation nasal allergies spray,suspension (Allergy Relief (fluticasone)) lamotrigine 100 mg tablet 100 mg PO DAILY 06/28/19 09/19/23 (Lamictal) metoprolol tartrate 25 mg tablet 25 mg PO BID 06/28/19 09/19/23 nitroglycerin 0.4 mg sublingual 0.4 mg sublingual Q5-15M PRN Chest 06/28/19 09/19/23 tablet (Nitrostat) Pain olanzapine 2.5 mg tablet (Zyprexa) 2.5 mg PO HS 06/28/19 09/19/23 ketoconazole 2 % topical cream 1 applic topical DAILY PRN Rash 10/08/19 09/19/23 sodium chloride 5 % eye drops 1 drop ophthalmic (eye) QID PRN 10/08/19 09/19/23 ([place]ers[place] 128) Dry Eyes calcium carbonate 600 mg-vitamin 1 tablet PO DAILY 06/29/22 09/19/23 D3 5 mcg (200 unit) tablet triamcinolone acetonide 0.1 % 1 applic topical QID PRN Rash 06/29/22 09/19/23 topical cream Allergies Allergy/AdvReac Type Severity Reaction Status Date / Time clindamycin Allergy Intermediate ITCHING, Verified 12/11/23 08:30 HIVES codeine AdvReac Unknown nausea and Verified 12/11/23 08:30 vomiting morphine AdvReac Unknown SEVERE Verified 12/11/23 08:30 NAUSEA AND VOMITING MEPERIDINE HCL Allergy Unknown B/P GOES Uncoded 12/11/23 08:30 REALLY HIGH, SEVERE BOGGS PROCHLORPERAZINE EDISYLATE AdvReac Unknown SEVERE Uncoded 12/11/23 08:30 DEPRESSION Review of Systems Review of Systems: CONSTITUTIONAL: Denies malaise, chills, sweats, or fever. EYES: Denies redness, or discharge. ENT: Denies rhinorrhea, congestion, swollen lips, swollen tongue CARDIOVASCULAR: Denies chest pain, palpitations, or edema. RESPIRATORY: Denies cough or dyspnea. GASTROINTESTINAL: Denies abdominal pain, nausea, vomiting SKIN: Reports redness, swelling, tenderness to the right forearm near a sting site. Denies purulent drainage, vesicles, bullae, numbness, pain beyond proportion MUSCULOSKELETAL: Denies joint pain or myalgia. NEUROLOGIC: Denies headache. All systems reviewed & are unremarkable except as noted in HPI and below PMFSH Past Medical History Medical History Bipolar 1 disorder CAD (coronary artery disease) CKD (chronic kidney disease), stage III Coronary artery disease involving [place] coronary artery of [place] heart Depression Diabetes mellitus with renal manifestation GERD without esophagitis Hx of myocardial infarction Hyp ht/kd NOS I-IV w hf Hypertensive heart disease with heart failure Lumbar radiculopathy, right Mixed hyperlipidemia [place] (myocardial infarction) JOSAFAT (obstructive sleep apnea) Osteoarthritis Osteopenia Rectocele Type 2 diabetes mellitus with hyperglycemia, without long-term current use of insulin Surgical History Surgical History History of coronary artery stent
[2023-12-11 08:29] VITALS: BP 177/58; PULSE 63; RESP 18; TEMP 36.7; O2SAT 100
[2023-12-11 08:31] VITALS: BP 177/58; PULSE 63; RESP 18; TEMP 36.7; O2SAT 100
== END 2023-12-11 08:56 | disposition home or self-care (01) ==
PROVIDERS: Emergency Provider Nurse Practitioner; PCP Family Medicine
DX: L03.113 Cellulitis of right upper limb (principal); I13.0 Hypertensive heart and chronic kidney disease with heart failure and stage 1 through stage 4 chronic kidney disease, or unspecified chronic kidney disease; E11.22 Type 2 diabetes mellitus with diabetic chronic kidney disease; N18.30 Chronic kidney disease, stage 3 unspecified; I50.9 Heart failure, unspecified; I25.10 Atherosclerotic heart disease of native coronary artery without angina pectoris; K21.9 Gastro-esophageal reflux disease without esophagitis; I25.2 Old myocardial infarction; E78.2 Mixed hyperlipidemia; M19.90 Unspecified osteoarthritis, unspecified site; M85.80 Other specified disorders of bone density and structure, unspecified site; Z95.5 Presence of coronary angioplasty implant and graft; F31.9 Bipolar disorder, unspecified; Z79.82 Long term (current) use of aspirin
CPT/HCPCS: 99213; G0463

== ENCOUNTER 2023-12-13 13:43 | Emergency (ER) | payer MEDICARE, OTHER, SELFPAY ==
[2023-12-13 13:47] VITALS: BP 142/60; PULSE 71; RESP 16; TEMP 36.9; O2SAT 98
--- NOTE | 2023-12-13 18:11 | ED.SKABFB ---
HPI - Skin/Abscess/Foreign Bdy General Chief complaint: Skin/Abscess/Foreign Body Stated complaint: INSECT BITE Time Seen by Provider: 12/13/23 17:09 History of Present Illness HPI narrative: 73-year-old female presents to the emergency department for concerns for spider bite to her right arm that occurred 5 days ago. Patient states she was in garden [place] at [place] stores, then 2 days later was in the shower and noticed a bump to the dorsum of her right forearm with associated swelling and discoloration. She was seen at urgent care 2 days ago and was prescribed Keflex for cellulitis. States she has been taking his as prescribed but has not had any improvement. In fact, she states she has had intermittent itchiness since starting Keflex and believe she is having a reaction to. She is reporting some discoloration to the volar aspect of her arm with tenderness. Denies fever. Related Data Home Medications Medication Instructions Recorded Confirmed aspirin 81 mg tablet,delayed 81 mg PO DAILY 06/28/19 09/19/23 release (Adult Low Dose Aspirin) bupropion HCl 300 mg 24 hr tablet, 300 mg PO QAM 06/28/19 09/19/23 extended release (Wellbutrin XL) fluticasone propionate 50 2 spray intranasal DAILY PRN 06/28/19 09/19/23 mcg/actuation nasal allergies spray,suspension (Allergy Relief (fluticasone)) lamotrigine 100 mg tablet 100 mg PO DAILY 06/28/19 09/19/23 (Lamictal) metoprolol tartrate 25 mg tablet 25 mg PO BID 06/28/19 09/19/23 nitroglycerin 0.4 mg sublingual 0.4 mg sublingual Q5-15M PRN Chest 06/28/19 09/19/23 tablet (Nitrostat) Pain olanzapine 2.5 mg tablet (Zyprexa) 2.5 mg PO HS 06/28/19 09/19/23 ketoconazole 2 % topical cream 1 applic topical DAILY PRN Rash 10/08/19 09/19/23 sodium chloride 5 % eye drops 1 drop ophthalmic (eye) QID PRN 10/08/19 09/19/23 (Anderson 128) Dry Eyes calcium carbonate 600 mg-vitamin 1 tablet PO DAILY 06/29/22 09/19/23 D3 5 mcg (200 unit) tablet triamcinolone acetonide 0.1 % 1 applic topical QID PRN Rash 06/29/22 09/19/23 topical cream Allergies Allergy/AdvReac Type Severity Reaction Status Date / Time clindamycin Allergy Intermediate ITCHING, Verified 12/11/23 08:30 HIVES codeine AdvReac Unknown nausea and Verified 12/11/23 08:30 vomiting morphine AdvReac Unknown SEVERE Verified 12/11/23 08:30 NAUSEA AND VOMITING MEPERIDINE HCL Allergy Unknown B/P GOES Uncoded 12/11/23 08:30 REALLY HIGH, SEVERE BOGGS PROCHLORPERAZINE EDISYLATE AdvReac Unknown SEVERE Uncoded 12/11/23 08:30 DEPRESSION Review of Systems Review of Systems: CONSTITUTIONAL: Denies fever, chills, or sweats. EYES: Denies visual changes, redness, or discharge. ENT: Denies rhinorrhea, congestion, sore throat, or otalgia. CARDIOVASCULAR: Denies chest pain, palpitations, or edema. RESPIRATORY: Denies cough or dyspnea. GASTROINTESTINAL: Denies abdominal pain, nausea, vomiting, or diarrhea. GENITOURINARY: Denies dysuria or hematuria. SKIN: See HPI. MUSCULOSKELETAL: Denies back pain, joint pain, or myalgia. NEUROLOGIC: Denies headache, numbness, or weakness. PSYCHIATRIC: Denies anxiety or depression. [facility] Past Medical History Medical History Bipolar 1 disorder CAD (coronary artery disease) CKD (chronic kidney disease), stage III Coronary artery disease involving [place] coronary artery of [place] heart Depression Diabetes mellitus with renal manifestation GERD without esophagitis Hx of myocardial infarction Hyp ht/kd NOS I-IV w hf Hypertensive heart disease with heart failure Lumbar radiculopathy, right Mixed hyperlipidemia [place] (myocardial infarction) JOSAFAT (obstructive sleep apnea) Osteoarthritis Osteopenia Rectocele Type 2 diabetes mellitus with hyperglycemia, without long-term current use of insulin Surgical History Surgical History History of coronary
[2023-12-13 18:41] LABS: Basophils Percent Auto 0.4 % (0.2-1.2); Eosinophils Absolute Auto 0.6 K/mm3 (0-0.3); Eosinophils Percent Auto 6.1 % (0-4.4); Hemoglobin 12.5 g/dL (12.0-15.0); Immature Granulocyte Absolute 0.01 K/mm3 (0.00-0.031); Immature Granulocyte Percent A 0.1 % (0-0.5); Lymphocytes Absolute Auto 2.54 K/mm3 (0.9-3.2); Mean Corpuscular HGB Conc 32.1 g/dl (32-36); Mean Corpuscular Hemoglobin 31.6 pg (26-34); Mean Corpuscular Volume 98.5 fl (80-100); Mean Platelet Volume 10.5 fl (7.4-10.4); Monocytes Absolute Auto 0.6 K/mm3 (0.1-0.6); Monocytes Percent Auto 6.3 % (2.6-8.5); Neutrophils Absolute Auto 5.7 K/mm3 (1.3-6.7); Neutrophils Percent Auto 60.1 % (45.5-73.1); Platelet Count Result 366 k/mm3 (150-375); Red Blood Count 3.96 M/mm3 (4.2-5.4); Red Cell Distribution Width 14.3 % (11.5-14.5); White Blood Count 9.4 K/mm3 (4.5-10.0)
[2023-12-13 18:52] LABS: Prothrombin Time 13.1 Seconds (11.1-14.7)
[2023-12-13 18:53] LABS: Partial Thromboplastin Time 25.8 Seconds (22.3-36.8)
[2023-12-13 19:21] LABS: Anion Gap 8 mmol/L (4-12); Blood Urea Nitrogen 31 mg/dL (7-17); Calcium 10.3 mg/dL (8.4-10.2); Carbon Dioxide 24 mmol/L (22-30); Chloride 110 mmol/L (98-107); Estimated CRCL calculation 21 ml/min; Estimated Glomerular Filt Rate 34; Glucose 81 mg/dL (65-110); Potassium 4.5 mmol/L (3.4-5.0); Sodium 142 mmol/L (137-145)
[2023-12-13 19:22] VITALS: BP 145/67; PULSE 87; RESP 17; O2SAT 99
== END 2023-12-13 19:55 | disposition home or self-care (01) ==
PROVIDERS: Emergency Provider Physician Assistant; PCP Family Medicine
DX: T63.301A Toxic effect of unspecified spider venom, accidental (unintentional), initial encounter (principal); R21 Rash and other nonspecific skin eruption; L98.8 Other specified disorders of the skin and subcutaneous tissue; I25.10 Atherosclerotic heart disease of native coronary artery without angina pectoris; E11.22 Type 2 diabetes mellitus with diabetic chronic kidney disease; I12.9 Hypertensive chronic kidney disease with stage 1 through stage 4 chronic kidney disease, or unspecified chronic kidney disease; N18.30 Chronic kidney disease, stage 3 unspecified; I25.2 Old myocardial infarction; E78.2 Mixed hyperlipidemia; G47.33 Obstructive sleep apnea (adult) (pediatric); M19.90 Unspecified osteoarthritis, unspecified site; M85.80 Other specified disorders of bone density and structure, unspecified site; Z95.5 Presence of coronary angioplasty implant and graft; Z79.82 Long term (current) use of aspirin
CPT/HCPCS: 10140; 36415; 80048; 85025; 85610; 85730; 99283

== ENCOUNTER 2024-08-07 12:46 | Outpatient (CLI) | payer MEDICARE, OTHER, SELFPAY ==
--- NOTE | ~2024-08-07 | MM_ITS ---
EXAMINATION: MM screening [place] BI w alvaro HISTORY: Screening TECHNIQUE: Craniocaudal and mediolateral oblique 3-D tomosynthesis images were obtained and synthetic 2-D images were generated. CAD analysis was submitted and interpreted. COMPARISON: Comparison to multiple prior studies sequentially, with oldest reviewed study dated 01/29. BREAST PARENCHYMAL COMPOSITION: Dense: The breasts are extremely dense, which lowers the sensitivity of mammography. FINDINGS: There is no evidence of suspicious mass, calcification, or architectural distortion to sugg est malignancy in either breast. There has been no suspicious interval change. IMPRESSION: 1. No mammographic evidence of malignancy. 2. Recommend routine screening mammography in one year. BI-RADS Category 1: Negative Reviewed, dictated and finalized at location B. 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
== END 2024-08-07 12:47 | disposition home or self-care (01) ==
LOC: ANHIMG 12:47
PROVIDERS: PCP Family Medicine; Visit Provider Family Medicine
DX: Z12.31 Encounter for screening mammogram for malignant neoplasm of breast (principal)
CPT/HCPCS: 77063; 77067

== ENCOUNTER 2024-10-02 09:33 | Outpatient (CLI) | payer MEDICARE, OTHER, SELFPAY ==
--- NOTE | ~2024-10-02 | CT_ITS ---
EXAMINATION: CT foot LT wo con DATE: 10/02/2024 10:18 INDICATION: Stress fracture of left foot. TECHNIQUE: Computed tomography (CT) of the left foot was performed without intravenous contrast. Auto mated exposure control and iterative reconstruction technique were employed. The dose-length product was 483.46 mGy-cm. COMPARISON: None FINDINGS: Alignment is normal. No fracture. There is severe osteoarthritis of first metatarsophalange al joint and mild osteoarthritis of some of the metacarpophalangeal joints, interphalangeal joints, a nd midfoot joints. There is ankylosis of second proximal interphalangeal joint. Third through fifth d igits demonstrate only proximal and distal phalanges. There is ankylosis of the phalanges in the thir d and fourth digits. There is heterotopic ossification distal to medial malleolus. There is an enthes ophyte at posterior aspect of calcaneal tuberosity. IMPRESSION: 1. No fracture. 2. Polyarticular osteoarthritis. Reviewed, dictated and finalized at location [facility]
--- OUTSIDE RECORDS SUMMARY | 2024-10-02 10:36 | XMS_ITS | Referral Summary ---
Author Organization [facility] Address [address] [place] [address] Care Team Providers Care Media Manager Name Role Phone Felipe Mckeon MD Primary Care Provider [phone] Jeff Lau MD Unavailable [phone] Source Comments [facility],non-owned Affiliates and Associated Physician Practices is amultiple site organization consisting of ambulatory clinics and hospital sitesin [place], [place], [place] and [place]. This disclosure is being madepursuant to the Care Everywhere program and may not contain all information available regarding this patient. Last updated 18.[facility] Encounters Date Type Department Care Team Description 09/11/2024 Lab Requisition [facility] - DermPath Lab [address], [place] [address] Sarah Ang MD from Last 3 Months Allergies Active Allergy Reactions Criticality Noted Date Comments Clindamycin Urticaria Medium 08/20/2018 Codeine Unknown 08/20/2018 Meperidine Elevated Blood Pressure Medium 08/20/2018 Morphine Nausea and/or Vomiting 08/20/2018 Prochlorperazine Unknown 08/20/2018 Medications * Be aware that medications may not be up to date on this document. Alwaysverify current medications with the patient. Medication Sig Dispensed Refills Start Date End Date Status lubiprostone (AMITIZA) 24 MCG capsuleIndications: takes daily at noon Take 24 mcg by mouth once daily Reasons: takes daily at noon 09/25/2017 Active atorvastatin (LIPITOR) 10 MG tablet 10 mg at bedtime 06/01/2018 Active buPROPion XL 24hr (WELLBUTRIN XL) 300 MG tablet 300 mg every morning 07/06/2018 Acti ve fexofenadine (NA) 180 MG tabletIndications:t akes in am 180 mg once daily Reasons: takes in am 06/01/2018 Active lamoTRIgine (LAMICTAL) 100 MG tabletIndications:a t breakfast 100 mg once daily Reasons: at breakfast 07/06/2018 Active rOPINIRole (REQUIP) 1 MG tabletIndications:t akes once at noon and once at 10pm 1 mg 2 times daily Reasons: takes once at noon and once at 10pm 03/12/2018 Active OLANZapine (ZYPREXA) 2.5 MG tabletIndications:a s needed at tbedtime 2.5 mg once daily as needed Reasons: as needed at tbedtime 07/06/2018 Active HYDROcodone-acetami nophen (NORCO) 5-325 MG tablet Take 1 tablet by mouth every 4 hours as needed for Pain Active meclizine (ANTIVERT) 12.5 MG tablet Take 12.5 mg by mouth 3 times daily as needed for Dizziness Active lisinopril (PRINIVIL; ZESTRIL) 20 MG tabletIndications:t akes in am Take 20 mg by mouth once daily Reasons: takes in am Active Multiple Vitamins-Minerals (MULTIVITAMIN ADULT) TABS Active acetaminophen (TYLENOL) 325 MG tablet Take 2 tablets by mouth every 6 hours as needed Maximum allowable Acetaminophen amount = 4 Grams (4000 mg) / 24 hours. 08/22/2018 Active HYDROcodone-acetami nophen (NORCO) 5-325 MG tablet Take 1 tablet by mouth every 8 hours as needed for Pain 5 tablet 08/22/2018 Active vitamin D, cholecalciferol, 2000 UNITS tablet Take 1 tablet by mouth once daily 08/16/2018 Active cephalexin (KEFLEX) 500 MG capsule Take 1 capsule by mouth once daily 07/11/2018 Active doxycycline monohydrate 100 MG capsule Take 1 capsule by mouth once daily 08/09/2018 Active FEROSUL 325 (65 FE) MG tablet Take 1 tablet by mouth once daily 09/03/2018 Active losartan (COZAAR) 25 MG tablet Take 1 tablet by mouth once daily 08/16/2018 Active MAGNESIUM-OXIDE 400 (241.3 MG) MG tablet Take 1 tablet by mouth Continuous for 7 days 0 08/22/2018 Active mupirocin (BACTROBAN) 2 % ointment Apply to affected area as needed 08/27/2018 Active sodium chloride, hypertonic, (JERONIMO-128) 5 % ophthalmic solution Instill 1 drop into both eyes 4 times daily 08/16/2018 Active Active Problems Problem Noted Date Diagnosed Date 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 Multiple renal cysts 08/22/2018 Fracture of right orbital wall 08/22/2018 Nasal bone fracture 08/22/2018 Fracture of maxilla 08/22/2018 Right shoulder pain 08/22/2018 Closed fracture of frontal bone 08/21/2018 SAH (subarachnoid hemorrhage) 08/20/2018 SDH (subdural hematoma) 08/20/2018 Fall 08/20/2018 Rosacea Microcytic hypochromic anemia Depression Immunizations Name Administration Dates Next Due INFLUENZA VACCINE 05/18/2018 Social History Tobacco Use Types Packs/Day Years Used Date Smoking Tobacco: Never Smokeless Tobacco: Never Tobacco Cessation:Counseling Given: No Alcohol Use Standard Drinks/Week Comments No 0 (1 standard drink = 0.6 oz pur e alcohol) Sex and Gender Information Value Date Recorded Sex Assigned at Not on file Gender Identity Not on file Sexual Orientation Not on file Last Filed Vital Signs Vital Sign Reading Time Taken Comments Blood Pressure 142/71 10/04/2018 12:56 PM BIOFUELS OPERATIONS MANAGER Pulse 71 10/04/2018 12:56 PM BIOFUELS OPERATIONS MANAGER Temperature 37 C (98.6 F) 09/07/2018 9:26 AM BIOFUELS OPERATIONS MANAGER Respiratory Rate 20 08/22/2018 11:42 AM BIOFUELS OPERATIONS MANAGER Oxygen Saturation 98% 09/07/2018 9:26 AM BIOFUELS OPERATIONS MANAGER Inhaled Oxygen Concentration - - Weight 49.4 kg (109 lb) 10/04/2018 12:56 PM BIOFUELS OPERATIONS MANAGER Height 152.4 cm (5') 10/04/2018 12:56 PM BIOFUELS OPERATIONS MANAGER Body Mass Index 21.29 10/04/2018 12:56 PM BIOFUELS OPERATIONS MANAGER Functional Status Functional Status Response Date of Assess ment Is person deaf or have serious hearing difficult y? No 08/20/2018 Is person blind or have serious difficulty seein g? No 08/20/2018 Does person have serious dif ficulty walking/climbing stairs? No 08/20/2018 Does person have difficulty dressing/bathing? No 08/20/2018 Does person have difficulty doing errands alone? No 08/20/2018 Cognitive Status Response Date of Assessm ent Does person have difficulty concentrating/remembering/making decisions? No 08/20/2018 Plan of Treatment Not on file Procedures Procedure Name Priority Date/Time Associated Diagnosis Comments DERMATOPATHOLOGY Routine 09/11/2024 3:33 AM BIOFUELS OPERATIONS MANAGER from Last 3 Months Results * DERMATOPATHOLOGY (09/11/2024 3:33 AM BIOFUELS OPERATIONS MANAGER) Case Report Dermatopathology Report Case: [id number] Authorizing Provider: Sarah Ang MD Collected: 09/11/2024 03:33 AM Ordering Location: [facility] - Received: 09/12/2024 11:00 AM DermPath Lab Pathologist: Brit Rutledge MD Specimen: Skin, left restoration 6:12 PM [facility] DERMATOPATHOLOGY LABORATORY Final Diagnosis Specimen A. SKIN, left restoration: FRAGMENTS OF EPIDERMIS (D23.9) (see microscopic description) 6:12 PM [facility] DERMATOPATHOLOGY LABORATORY Clinical History R/O Cyst, BCC 6:12 PM [facility] DERMATOPATHOLOGY LABORATORY Gross Description Specimen A: Received is one formalin filled container labeled with the patient's name and designated left restoration. The specimen consists of a shave biopsy measuring 3 pieces 5x3x1,5x4x1,4x3x1 mm. Jar 0. 6:12 PM [facility] DERMATOPATHOLOGY LABORATORY Microscopic Description Specimen A. SKIN, left restoration: There are fragments of squamous epithelium without evidence of epithelial dysplasia or malignancy. There is minimal dermis present for evaluation. Additional deeper sections were obtained and reviewed. 6:12 PM [facility] DERMATOPATHOLOGY LABORATORY Disclaimer An external and internal positive and negative controls are appropriate for the histochemical, immunohistochemical and immunofluorescence stain(s) in this case (if any), except where stated explicitly. The performance characteristics of the stain(s) cited in this report were developed and its performance characteristic determined by the Dermatopathology Laboratory at [facility], directed by Dr. Krystal Rutledge. These tests need not be, and therefore are not, approved by the [place] Food and Drug Administration. The tests are used for clinical purposes. Billing Codes Specimen Charges Stain Charges 05678 1 5 6:12 PM BIOFUELS OPERATIONS MANAGER DERMATOPATHOLOGY LABORATORY Embedded Images 5 6:12 PM BIOFUELS OPERATIONS MANAGER DERMATOPATHOLOGY LABORATORY Pathology/Cytolo gy TISSUE SPECIMEN FROM SKIN / Unknown 09/11/2024 3:33 AM BIOFUELS OPERATIONS MANAGER 09/12/2024 11:00 AM BIOFUELS OPERATIONS MANAGER Sarah Ang MD LAB - PATHOLOGY/CYTO LOGY ORDERABLES DERMATOPATHOLOGY LABORATORY [facility] - Department of Dermatology [address], [address] [phone] from Last 3 Months Advance Directives * Full Code (Latest Code Status on File) Date Activated Date Inactivated Comments 08/20/2018 4:58 PM 08/22/2018 5:01 PM Care Teams Media Manager Relationship Specialty Start Date End Date Felipe Mckeon MD [address] [place] [address] PCP - General Family Medicine 08/20/18 Jeff Lau MD [address] [place] [address] Ophthalmology 09/05/18
--- OUTSIDE RECORDS SUMMARY | 2024-10-02 10:36 | XMS_ITS | Encounter Summary ---
Author Organization [facility] Address [address] [place] [address] Care Team Providers Care Criminal Justice Program Director Name Role Phone Felipe Mckeon MD Primary Care Provider [phone] Jeff Lau MD Unavailable [phone] Encounter Details Date Type Department Care Team (Late st Contact Info) Description 08/02/2023 Lab Requisition [facility] - DermPath Lab [address] [facility], [place] [address] Sarah Ang MD [address] [facility] [address] [place] [address] Social History Tobacco Use Types Packs/Day Years Used Date Smoking Tobacco: Never Smokeless Tobacco: Never Alcohol Use Standard Drinks/Week Comments No 0 (1 standard drink = 0.6 oz pur e alcohol) Sex and Gender Information Value Date Recorded Sex Assigned at Not on file Gender Identity Not on file Sexual Orientation Not on file documented as of this encounter Functional Status Functional Status Response Date of [...] person have difficulty concentrating/remembering/making decisions? No 08/20/2018 documented as of this encounter Plan of Treatment Not on file documented as of this encounter Procedures Procedure Name Priority Date/Time Associated Diagnosis Comments DERMATOPATHOLOGY Routine 08/02/2023 9:53 AM SOFTWARE WRITER documented in this encounter Results * DERMATOPATHOLOGY (08/02/2023 9:53 AM SOFTWARE WRITER) Case Report Dermatopathology Report Case: [id number] Authorizing Provider: Sarah Ang MD Collected: 08/02/2023 09:53 AM Ordering Location: [facility] Derm[facility] Lab Received: 08/03/2023 12:53 PM Pathologist: Theodora Chin MD Specimen: Skin, left upper lip 12:03 PM [facility] DERMATOPATHOLOGY LABORATORY Final Diagnosis Specimen A. 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 The specimen consists of a shave biopsy measuring 3x4x1 mm. Jar 0. 12:03 PM [facility] DERMATOPATHOLOGY LABORATORY Microscopic Description Specimen A. SKIN, left upper lip: The epidermis shows parakeratosis, full thickness disorderly maturation of keratinocytes, and dyskeratotic cells. The lesion extends to the base of the biopsy. COMMENT: An invasive squamous cell carcinoma cannot be ruled out. 12:03 PM [facility] DERMATOPATHOLOGY LABORATORY Disclaimer An external and [...] purposes. Billing Codes Specimen Charges Stain Charges 56948 1 3 12:03 PM SOFTWARE WRITER DERMATOPATHOLOGY LABORATORY Embedded Images 3 12:03 PM SOFTWARE WRITER DERMATOPATHOLOGY LABORATORY Pathology/Cytolo gy TISSUE SPECIMEN FROM SKIN / Unknown 08/02/2023 9:53 AM SOFTWARE WRITER 08/03/2023 12:53 PM SOFTWARE WRITER Sarah Ang MD LAB - PATHOLOGY/CYTO LOGY ORDERABLES DERMATOPATHOLOGY LABORATORY [facility] - Department of Dermatology [facility] Medicine [address] [place] [address], [address] [phone] documented in this encounter Visit Diagnoses Not on filedocumented in this encounter Care Teams Criminal Justice Program Director Relationship Specialty Start Date End Date Felipe Mckeon MD [address] [place] [address] PCP - General Family Medicine 08/20/18 Jeff Lau MD [address] [place] [address] Ophthalmology 09/05/18 documented as of this encounter
--- OUTSIDE RECORDS SUMMARY | 2024-10-02 10:36 | XMS_ITS ---
Author Organization [facility] Address [address] [place] [address] Care Team Providers Care Academic Registrar Name Role Phone Felipe Mckeon MD Primary Care Provider Narciso Woods Unavailable [phone] Alessandra Jackson Unavailable [phone] Social History Sex Assigned At : Social History Observation Description Sex Assigned At Female Encounters Encounter Location Date Provider Diagnosis [facility] Desktime [place] [id number] [place] [address] 09/26/2024 Alessandra Jackson Plan Of Treatment Next Appt Details Provider Name:Evie Holloway , 11/07/2024 01:30:00 PM, [facility], [address], [address], Provider Name:Alessandra Jackson , 08/28/2025 02:00:00 PM, [address], [address], Provider Name:Alessandra Jackson , 09/04/2025 02:00:00 PM, [address], [address], [address], Provider Name:Alessandra Jackson , 09/11/2025 02:00:00 PM, [address], [address], [address], Provider Name:Alessandra Jackson , 09/18/2025 02:00:00 PM, [address], [place], [address], Provider Name:Alessandra Jackson , 09/25/2025 02:00:00 PM, [address], [place], [address], Provider Name:Alessandra Jackson , 10/02/2025 02:00:00 PM, [address], [place], [address], Provider Name:Alessandra Jackson , 10/09/2025 02:00:00 PM, [address], [place], [address], Provider Name:Alessandra Jackson , 10/16/2025 02:00:00 PM, [address], [place], [address], Provider Name:Alessandra Jackson , 10/23/2025 02:00:00 PM, [facility], [place], [address], Provider Name:Alessandra Jackson , 10/30/2025 02:00:00 PM, [address], [place], [address], Provider Name:Alessandra Jackson , 11/06/2025 02:00:00 PM, [address], [place], [address], Provider Name:Alessandra Jackson , 11/13/2025 02:00:00 PM, [address], [place], [address], Provider Name:Alessandra Jackson , 11/20/2025 02:00:00 PM, [address], [place], [address], Provider Name:Alessandra Jackson , 11/27/2025 02:00:00 PM, [address], [place], [address], Provider Name:Alessandra Jackson , 12/04/2025 02:00:00 PM, [address], [address], [address], Provider Name:Alessandra Jackson , 12/11/2025 02:00:00 PM, [facility], [address], [address], Provider Name:Alessandra Jackson , 12/18/2025 02:00:00 PM, [facility], [address], Provider Name:Alessandra Jackson , 12/25/2025 02:00:00 PM, [facility], [place] [address], [place], [address], Provider Name:Alessandra Jackson , 01/01/2026 02:00:00 PM, [facility] [address], [address], Provider Name:Alessandra Jackson , 01/08/2026 02:00:00 PM, [facility] [address], [address], Progress Notes * MALGORZATA PATOB:1950 (74 yo F)Acc No.[id number]:09/26/2024 Patient: KATE MCCARTYY Provider: Roselyn JACKSON LCSW :1950 A ge:74 Y S ex:Female Date:09/26/2024 Address:[address] [place] [address], [facility] Pcp:Felipe Mckeon MD Data: * Chief Complaints: * * Medical History: * Surgical History: * Hospitalization/Major Diagno stic Procedure: * Medications: * Vitals: Assessment: Plan: * Treatment: * Procedure Codes: * Billing Information: * Visit Code: * Procedure Codes: Care Plan Details* Group Therapy Template Group Summary Jennifer gee began a discussion on ensuring they feel safe before doing any further trauma work. How many clients in group 5 Discussion Topic S afety before and during trauma work Participation E leslieaged Plan a gree to meet for next group PTSD Topic of the day G anjanap members began a discussion on safety. They began to define what makes them feel safe inside and outside the home. * AL SALES REPRESENTATIVE Sign off status: Completed true * Provider: Roselyn JACKSON LCSW Date: 0 09/26/2024 Generated for Aggie nelson/Amador/Camiitting on: 0 10/02/2024 10:36 AM RENTAL SALES REPRESENTATIVE
--- OUTSIDE RECORDS SUMMARY | 2024-10-02 10:36 | XMS_ITS | Clinical Summary ---
Author Organization [facility] Address [address] [place] [address] Care Team Providers Care Inside Barrel Polisher Name Role Phone Felipe Mckeon MD Primary Care Provider [phone] Jeff Lau MD Unavailable [phone] Source Comments [facility],non-owned Affiliates and Associated Physician Practices is amultiple site organization consisting of ambulatory clinics and hospital sitesin [place], [place], [place] and [place]. This disclosure is being madepursuant to the Care Everywhere program and may not contain all information available regarding this patient. Last updated 18.[facility] [employer] Allergies Active Allergy Reactions Criticality Noted Date [...] Fall 08/20/2018 Rosacea Microcytic hypochromic anemia Depression Encounters Date Type Department Care Team Description 09/11/2024 Lab Requisition [facility] - DermPath Lab [address] [facility] [place] [address] Sarah Ang MD from Last 3 Months Immunizations Name Administration Dates Next Due INFLUENZA [...] Comments Blood Pressure 142/71 10/04/2018 12:56 PM LABOR RELATIONS OR PERSONNEL NEGOTIATOR Pulse 71 10/04/2018 12:56 PM LABOR RELATIONS OR PERSONNEL NEGOTIATOR Temperature 37 C (98.6 F) 09/07/2018 9:26 AM LABOR RELATIONS OR PERSONNEL NEGOTIATOR Respiratory Rate 20 08/22/2018 11:42 AM LABOR RELATIONS OR PERSONNEL NEGOTIATOR Oxygen Saturation 98% 09/07/2018 9:26 AM LABOR RELATIONS OR PERSONNEL NEGOTIATOR Inhaled Oxygen Concentration - - Weight 49.4 kg (109 lb) 10/04/2018 12:56 PM LABOR RELATIONS OR PERSONNEL NEGOTIATOR Height 152.4 cm (5') 10/04/2018 12:56 PM LABOR RELATIONS OR PERSONNEL NEGOTIATOR Body Mass Index 21.29 10/04/2018 12:56 PM LABOR RELATIONS OR PERSONNEL NEGOTIATOR Plan of Treatment Health Maintenance Due Date Last Done Comments BONE DENSITY TESTING 1950 COLOGUARD (AGES 45-75) - COL ON CA SCREENING 1950 COLON MONITORING 1950 COLONOSCOPY - COLON CA SCREENING 1950 CT COLONOGRAPHY - COLON CA SCREENING 1950 Colorectal Cancer Screening 1950 FIT - COLON CA SCREENING 1950 FLEX SIG - COLON CA SCREENING 1950 MAMMOGRAM 1950 MEDICARE AWV 12 MONTHS 1950 HEPATITIS C SCREENING 04/26/1967 DTAP/TDAP/TD VACCINES (1 - Tdap) 1968 PNEUMOCOCCAL VACCINE 50+ (1 of 1 - PCV) 1999 ZOSTER VACCINE (1 of 2) 1999 COVID-19 VACCINE (1 - 2023-2 5 season) 2024 INFLUENZA VACCINE (#1) 2024 05/18/2018 Respiratory Syncytial Virus (RSV) Vaccine Pt: or over 60 yrs (1 - 1-dose 75+ series) 2024 DEPRESSION SCREENING 08/21/2024 HEPATITIS B VACCINE Aged Out No longe r eligible based on patient's age to complete this topic HIB VACCINE Aged Out No longer eligi ble based on patient's age to complete this topic HPV VACCINE Aged Out No longer eligi ble based on patient's age to complete this topic MENINGOCOCCAL (Group B) VACCINE Aged Out No longer eligible based on patient's age to complete this topic MENINGOCOCCAL VACCINE Aged Out No debra jelani eligible based on patient's age to complete this topic Procedures Procedure Name Priority Date/Time Associated Diagnosis Comments DERMATOPATHOLOGY Routine 09/11/2024 3:33 AM LABOR RELATIONS OR PERSONNEL NEGOTIATOR from Last 3 Months Results * DERMATOPATHOLOGY (09/11/2024 3:33 AM LABOR RELATIONS OR PERSONNEL NEGOTIATOR) Case Report Dermatopathology Report Case: [id number] Authorizing Provider: Sarah Ang MD Collected: 09/11/2024 03:33 AM Ordering Location: [facility] - Received: 09/12/2024 11:00 AM DermPath Lab Pathologist: Brit Rutledge MD Specimen: Skin, left christianity 5 6:12 PM LABOR RELATIONS OR PERSONNEL NEGOTIATOR DERMATOPATHOLOGY LABORATORY Final Diagnosis Specimen A. SKIN, left christianity: FRAGMENTS OF EPIDERMIS (D23.9) (see microscopic description) 5 6:12 PM LABOR RELATIONS OR PERSONNEL NEGOTIATOR DERMATOPATHOLOGY LABORATORY Clinical History R/O Cyst, BCC 5 6:12 PM LABOR RELATIONS OR PERSONNEL NEGOTIATOR DERMATOPATHOLOGY LABORATORY Gross Description Specimen A: Received is one formalin filled container labeled with the patient's name and designated left christianity. The specimen consists of a shave biopsy measuring 3 pieces 5x3x1,5x4x1,4x3x1 mm. Jar 0. 6:12 PM [facility] DERMATOPATHOLOGY LABORATORY Microscopic Description Specimen A. SKIN, left christianity: There are fragments of squamous epithelium without evidence of epithelial dysplasia or malignancy. There is minimal dermis present for evaluation. Additional deeper sections were obtained and reviewed. 5 6:12 PM [facility] DERMATOPATHOLOGY LABORATORY Disclaimer An external and internal positive and negative controls are appropriate for the histochemical, immunohistochemical and immunofluorescence stain(s) in this case (if any), except where stated explicitly. The performance characteristics of the stain(s) cited in this report were developed and its performance characteristic determined by the Dermatopathology Laboratory at [facility], directed by Dr. Krystal Rutledge. These tests need not be, and therefore are not, approved by the [place] Food and Drug Administration. The tests are used for clinical purposes. Billing Codes Specimen Charges Stain Charges 84680 1 5 6:12 PM [facility] DERMATOPATHOLOGY LABORATORY Embedded Images 6:12 PM [facility] DERMATOPATHOLOGY LABORATORY Pathology/Cytolo gy TISSUE SPECIMEN FROM SKIN / Unknown 09/11/2024 3:33 AM LABOR RELATIONS OR PERSONNEL NEGOTIATOR 09/12/2024 11:00 AM LABOR RELATIONS OR PERSONNEL NEGOTIATOR Sarah Ang MD LAB - PATHOLOGY/CYTO LOGY ORDERABLES DERMATOPATHOLOGY LABORATORY [facility] - Department of Dermatology [facility] [address] [place] [address], [address] [phone] from Last 3 Months Advance Directives * Full Code (Latest Code Status on File) Date Activated Date Inactivated Comments 08/20/2018 4:58 PM 08/22/2018 5:01 PM Care Teams Inside Barrel Polisher Relationship Specialty Start Date End Date Felipe Mckeon MD [address] [place] [address] PCP - General Family Medicine 08/20/18 Jeff Lau MD [address] [place] [address] Ophthalmology 09/05/18
--- OUTSIDE RECORDS SUMMARY | 2024-10-02 10:36 | XMS_ITS | Patient Health Summary ---
Author Organization [facility] Address [address] [place] [address] Care Team Providers Care Window Glazier Name Role Phone Felipe Mckeon MD Primary Care Provider [phone] Jeff Lau MD Unavailable [phone] Note from [facility],non-owned Affiliates and Associated Physician Practices is amultiple site organization consisting of ambulatory clinics and hospital sitesin [place], [place]. This disclosure is being madepursuant to the Care Everywhere program and may not contain all information available regarding this patient. Last updated 18.[facility] Allergies * Clindamycin(Urticaria) -Medium Criticality * Codeine(Unknown) * Meperidine(Elevated Blood Pressure) -Medium Criticality * Morphine(Nausea and/or Vomiting) * Prochlorperazine(Unknown) Medications * Be aware that medications may not be up to date on this document. Alwaysverify current medications with the patient. * lubiprostone (AMITIZA) 24 MCG capsule(Started 09/25/2017) Take 24 mcg by mouth once daily Reasons: takes daily at noon * atorvastatin (LIPITOR) 10 MG tablet(Started 06/01/2018) 10 mg at bedtime * buPROPion XL 24hr (WELLBUTRIN XL) 300 MG tablet(Started 07/06/2018) 300 mg every morning * fexofenadine (NA) 180 MG tablet(Started 06/01/2018) 180 mg once daily Reasons: takes in am * lamoTRIgine (LAMICTAL) 100 MG tablet(Started 07/06/2018) 100 mg once daily Reasons: at breakfast * rOPINIRole (REQUIP) 1 MG tablet(Started 03/12/2018) 1 mg 2 times daily Reasons: takes once at noon and once at 10pm * OLANZapine (ZYPREXA) 2.5 MG tablet(Started 07/06/2018) 2.5 mg once daily as needed Reasons: as needed at tbedtime * HYDROcodone-acetaminophen (NORCO) 5-325 MG tablet Take 1 tablet by mouth every 4 hours as needed for Pain * meclizine (ANTIVERT) 12.5 MG tablet Take 12.5 mg by mouth 3 times daily as needed for Dizziness * lisinopril (PRINIVIL; ZESTRIL) 20 MG tablet Take 20 mg by mouth once daily Reasons: takes in am * Multiple Vitamins-Minerals (MULTIVITAMIN ADULT) TABS * acetaminophen (TYLENOL) 325 MG tablet(Started 08/22/2018) Take 2 tablets by mouth every 6 hours as needed Maximum allowable Acetaminophen amount = 4 Grams (4000 mg) / 24 hours. * HYDROcodone-acetaminophen (NORCO) 5-325 MG tablet(Started 08/22/2018) Take 1 tablet by mouth every 8 hours as needed for Pain * vitamin D, cholecalciferol, 2000 UNITS tablet(Started 08/16/2018) Take 1 tablet by mouth once daily * cephalexin (KEFLEX) 500 MG capsule(Started 07/11/2018) Take 1 capsule by mouth once daily * doxycycline monohydrate 100 MG capsule(Started 08/09/2018) Take 1 capsule by mouth once daily * FEROSUL 325 (65 FE) MG tablet(Started 09/03/2018) Take 1 tablet by mouth once daily * losartan (COZAAR) 25 MG tablet(Started 08/16/2018) Take 1 tablet by mouth once daily * MAGNESIUM-OXIDE 400 (241.3 MG) MG tablet(Started 08/22/2018) Take 1 tablet by mouth Continuous for 7 days * mupirocin (BACTROBAN) 2 % ointment(Started 08/27/2018) Apply to affected area as needed * sodium chloride, hypertonic, (JERONIMO-128) 5 % ophthalmic solution(Started 08/16/2018) Instill 1 drop into both eyes 4 times daily Active Problems Problem Noted Date Diagnosed Date 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 Multiple renal cysts 08/22/2018 Fracture of right orbital wall 08/22/2018 Nasal bone fracture 08/22/2018 Fracture of maxilla 08/22/2018 Right shoulder pain 08/22/2018 Closed fracture of frontal bone 08/21/2018 SAH (subarachnoid hemorrhage) 08/20/2018 SDH (subdural hematoma) 08/20/2018 Fall 08/20/2018 Rosacea Microcytic hypochromic anemia Depression Immunizations * INFLUENZA VACCINE(Given 05/18/2018) Social History Tobacco Use Types Packs/Day Years [...] Comments Blood Pressure 142/71 10/04/2018 12:56 PM LEARNING SERVICES COORDINATOR Pulse 71 10/04/2018 12:56 PM LEARNING SERVICES COORDINATOR Temperature 37 C (98.6 F) 09/07/2018 9:26 AM LEARNING SERVICES COORDINATOR Respiratory Rate 20 08/22/2018 11:42 AM LEARNING SERVICES COORDINATOR Oxygen Saturation 98% 09/07/2018 9:26 AM LEARNING SERVICES COORDINATOR Inhaled Oxygen Concentration - - Weight 49.4 kg (109 lb) 10/04/2018 12:56 PM LEARNING SERVICES COORDINATOR Height 152.4 cm (5') 10/04/2018 12:56 PM LEARNING SERVICES COORDINATOR Body Mass Index 21.29 10/04/2018 12:56 PM LEARNING SERVICES COORDINATOR Procedures * DERMATOPATHOLOGY(Performed 09/11/2024) * DERMATOPATHOLOGY(Performed 08/02/2023) * CT HEAD WO CONTRAST(Performed 10/04/2018) Performed for SDH (subdural hematoma) (HCC) * CARDIAC ECHOCARDIOGRAM COMPLETE ORDER(Performed 09/23/2018) * CARDIAC EKG ORDER(Performed 08/27/2018) * LAB RESULTS ORDER(Performed 08/25/2018) * GLUCOSE - POINT OF CARE(Performed 08/22/2018) * BASIC METABOLIC PANEL (CALCIUM TOTAL)(Performed 08/22/2018) * PHOSPHORUS BLOOD(Performed 08/22/2018) * MAGNESIUM BLOOD(Performed 08/22/2018) * BASIC METABOLIC PANEL (CALCIUM TOTAL)(Performed 08/22/2018) * GLUCOSE - POINT OF CARE(Performed 08/22/2018) * ABO TYPE: RETYPE-PATIENT RESULT ONLY(Performed 08/22/2018) * XR CHEST 2VW(Performed 08/22/2018) Performed for Closed fracture of one rib, unspecified laterality, initial encounter * GLUCOSE - POINT OF CARE(Performed 08/22/2018) * CBC W AUTO DIFFERENTIAL(Performed 08/22/2018) * GLUCOSE - POINT OF CARE(Performed 08/22/2018) * GLUCOSE - POINT OF CARE(Performed 08/21/2018) * GLUCOSE - POINT OF CARE(Performed 08/21/2018) * GLUCOSE - POINT OF CARE(Performed 08/21/2018) * BASIC METABOLIC PANEL (CALCIUM TOTAL)(Performed 08/21/2018) * PT EVAL AND TREAT ORTHO/TRAUMA(Performed 08/21/2018) * OT EVAL AND TREAT ORTHO/TRAUMA(Performed 08/21/2018) * DIFFERENTIAL MANUAL(Performed 08/21/2018) * CBC W AUTO DIFFERENTIAL(Performed 08/21/2018) * HEMOGLOBIN A1C(Performed 08/21/2018) * GLUCOSE - POINT OF CARE(Performed 08/21/2018) * GLUCOSE - POINT OF CARE(Performed 08/21/2018) * CT HEAD WO CONTRAST(Performed 08/20/2018) Performed for SDH (subdural hematoma) (HCC) * GLUCOSE - POINT OF CARE(Performed 08/20/2018) * EKG 12-LEAD(Performed 08/20/2018) Performed for SAH (subarachnoid hemorrhage) (HCC) * CT THORACIC SPINE WO CONTRAST(Performed 08/20/2018) Performed for Fall, initial encounter * CT LUMBAR SPINE WO CONTRAST(Performed 08/20/2018) Performed for Fall, initial encounter * CT CHEST ABDOMEN PELVIS W CONT(Performed 08/20/2018) Performed for Fall, initial encounter * XR CHEST 1VW PORTABLE(Performed 08/20/2018) Performed for Fall, initial encounter * URINE DRUG SCREEN IMMUNOASSAY(Performed 08/20/2018) * TYPE + SCREEN PANEL(Performed 08/20/2018) * PTT SLH(Performed 08/20/2018) * PT-INR SLH(Performed 08/20/2018) * COMPREHENSIVE METABOLIC PANEL(Performed 08/20/2018) * CBC W AUTO DIFFERENTIAL(Performed 08/20/2018) * ALCOHOL ETHYL BLOOD(Performed 08/20/2018) * TEG PLATELET MAPPING(Performed 08/20/2018) * PULSE OXIMETRY, CONTINUOUS(Performed 08/20/2018) * DERMATOPATHOLOGY(Performed 11/20/2017) Results * DERMATOPATHOLOGY (09/11/2024 3:33 AM LEARNING SERVICES COORDINATOR) Only the most recent of3 resultswithin the time period is included. Case Report Dermatopathology Report Case: [id number] Authorizing Provider: Sarah Ang MD Collected: 09/11/2024 03:33 AM Ordering Location: [facility] - Received: 09/12/2024 11:00 AM [facility] Lab Pathologist: Brit Rutledge MD Specimen: Skin, left zoroastrian 6:12 PM [facility] Final Diagnosis Specimen A. SKIN, left zoroastrian: FRAGMENTS OF EPIDERMIS (D23.9) (see microscopic description) 6:12 PM [facility] Clinical History R/O Cyst, BCC 6:12 PM [facility] Gross Description Specimen A: Received is one formalin filled container labeled with the patient's name and designated left zoroastrian. The specimen consists of a shave biopsy measuring 3 pieces 5x3x1,5x4x1,4x3x1 mm. Jar 0. 6:12 PM [facility] Microscopic Description Specimen A. SKIN, left zoroastrian: There are fragments of squamous epithelium without evidence of epithelial dysplasia or malignancy. There is minimal dermis present for evaluation. Additional deeper sections were obtained and reviewed. 6:12 PM [facility] Disclaimer An external and internal positive and negative controls are appropriate for the histochemical, immunohistochemical and immunofluorescence stain(s) in this case (if any), except where stated explicitly. The performance characteristics of the stain(s) cited in this report were developed and its performance characteristic determined by the Dermatopathology Laboratory at [facility], directed by Dr. Krystal Rutledge. These tests need not be, and therefore are not, approved by the [place] Food and Drug Administration. The tests are used for clinical purposes. Billing Codes Specimen Charges Stain Charges 73232 1 6:12 PM [facility] Embedded Images 6:12 PM [facility] Pathology/Cytolo gy TISSUE SPECIMEN FROM SKIN / Unknown 09/11/2024 3:33 AM LEARNING SERVICES COORDINATOR 09/12/2024 11:00 AM LEARNING SERVICES COORDINATOR Sarah Ang MD LAB - PATHOLOGY/CYTO LOGY ORDERABLES DERMATOPATHOLOGY LABORATORY [facility] - Department of Dermatology [place] [id number] [facility], [address]rd [address] [phone] * CT HEAD WO CONTRAST (10/04/2018 11:37 AM LEARNING SERVICES COORDINATOR) Only the most recent of2 resultswithin the time period is included. Anatomical Region Laterality Modality Head Computed Tomogra phy 10/04/2018 1:13 PM LEARNING SERVICES COORDINATOR Impressions 10/04/2018 1:58 PM LEARNING SERVICES COORDINATOR IMPRESSION: 1.Near-complete resolution of the previously identified subdural hematoma along the left tentorium, and complete resolution of the left temporo-occipital convexity. No midline shift or mass effect. No new intracranial hemorrhage. 2.Redemonstration of right frontal bone fracture extending to the right frontal sinus and medial superior orbital wall. Dictated by Maria Fernanda Bello M.D. (residential service technician). This report was approved by Maria Fernanda Bello M.D. on 10/04/2018 1:58 PM . I, Dr. ISAK ROLLINS have personally reviewed and interpreted this examination/study. This report was electronically signed by ISAK ROLLINS on 10/04/2018 1:58 PM . Narrative 10/04/2018 1:58 PM LEARNING SERVICES COORDINATOR EXAMINATION: Computed tomography (CT) of the head without contrast HISTORY: SDH follow up TECHNIQUE: CT of the head was performed without contrast according to standard protocol. COMPARISON: CT head without contrast dated 08/20/2018. FINDINGS: There has been significantly decreased/near complete resolution of the previously identified subdural hematoma along the left tentorium, left temporo-occipital convexity and right frontal convexity. No acute intra or extra-axial hematoma is identified. There is mild cerebral volume loss with associated ex vacuo ventricular dilatation. The basilar cisterns are patent. No mass effect or midline shift is seen. The pompa-white matter differentiation is normal. Periventricular white matter hypoattenuation is indicative of chronic small vessel ischemic disease. There is vascular calcification of the carotid siphons and T4 segments of the vertebral arteries. Other than bilateral cataract extractions and mild mucosal thickening in the right frontal and ethmoid sinuses, the visualized portions of the orbits, paranasal sinuses, and mastoids appear normal. Redemonstration of a right frontal bone fracture extending to the right frontal sinus inner and outer tables as well as the medial superior orbital wall. There is chronic nasal bone fracture. Procedure Note Isak Rollins MD - 10/04/2018 EXAMINATION: Computed tomography (CT) of the head without contrast HISTORY: SDH follow up TECHNIQUE: CT of the head was performed without contrast according to standard protocol. COMPARISON: CT head without contrast dated 08/20/2018. FINDINGS: There has been significantly decreased/near complete resolution of the previously identified subdural hematoma along the left tentorium, left temporo-occipital convexity and right frontal convexity. No acute intraor extra-axial hematoma is identified. There is mild cerebral volume loss with associated ex vacuo ventricular dilatation. The basilar cisternsare patent. No mass effect or midline shift is seen. The pompa-white matter differentiation is normal. Periventricular white matter hypoattenuationis indicative of chronic small vessel ischemic disease. There is vascular calcification of the carotid siphons and T4 segments of the vertebral arteries. Other than bilateral cataract extractions and mild mucosal thickening in the right frontal and ethmoid sinuses, the visualized portions of the orbits, paranasal sinuses, and mastoids appear normal. Redemonstration of a right frontal bone fracture extending to the right frontal sinus inner and outer tables as well as the medial superior orbital wall. There is chronic nasal bone fracture. IMPRESSION: 1.Near-complete resolution of the previously identified subduralhematoma along the left tentorium, and complete resolution of the left temporo-occipital convexity. No midline shift or mass effect. No new intracranial hemorrhage. 2.Redemonstration of right frontal bone fracture extending to the right frontal sinus and medial superior orbital wall. Dictated by Maria Fernanda Bello M.D. (residential service technician). This report was approved by Maria Fernanda Bello M.D. on 10/04/2018 1:58PM . I, Dr. ISAK ROLLINS have personally reviewed and interpreted this examination/study. This report was electronically signed by ISAK ROLLINS on10/04/2018 1:58 PM . Shimon Arreola MD CT ORDERABLES * CARDIAC ECHOCARDIOGRAM COMPLETE ORDER (09/23/2018 2:59 PM LEARNING SERVICES COORDINATOR) Narrative 09/23/2018 2:59 PM LEARNING SERVICES COORDINATOR Ordered by an unspecified provider. Scanned Document ECHO ORDERABLES * CARDIAC EKG ORDER (08/27/2018 6:53 AM LEARNING SERVICES COORDINATOR) Narrative 08/27/2018 6:53 AM LEARNING SERVICES COORDINATOR Ordered by an unspecified provider. Scanned Document CARDIAC SERVICES ORD ERABLES * LAB RESULTS ORDER (08/25/2018 9:56 PM LEARNING SERVICES COORDINATOR) Narrative 08/25/2018 9:56 PM LEARNING SERVICES COORDINATOR Ordered by an unspecified provider. Scanned Document LAB - THERAPEUTIC DR UG MONITORING ORDERABLES * (ABNORMAL) GLUCOSE - POINT OF CARE (08/22/2018 11:45 AM LEARNING SERVICES COORDINATOR) Only the most recent of10 resultswithin the time period is included. Glucose WB/POC 117(H) 70 - 115 mg/dL 08/23/2018 5:19 PM [facility] Specimen Type Venous 08/23/2018 5:19 PM [facility] Blood BLOOD SPECIMEN / Unknown 08/22/2018 11:45 AM LEARNING SERVICES COORDINATOR 08/23/2018 5:19 PM LEARNING SERVICES COORDINATOR Narrative [facility] - 08/23/2018 5:19 PM LEARNING SERVICES COORDINATOR Election Clerk: IAN SHELTON Stu Phoenix MD LAB - POINT OF CARE ORDERABLES [address] [phone] * (ABNORMAL) BASIC METABOLIC PANEL (CALCIUM TOTAL) (08/22/2018 10:57 AM LEARNING SERVICES COORDINATOR) Only the most recent of3 resultswithin the time period is included. BUN 14 7 - 26 mg/dL 08/22/2018 11:28 AM [facility] Creatinine 0.8 0.6 - 1.2 mg/dL 08/22/2018 11:28 AM [facility] Sodium 140 136 - 145 mmol/L 08/22/2018 11:28 AM [facility] Potassium 4.0 3.5 - 4.5 mmol/L 08/22/2018 11:28 AM [facility] Chloride 105 98 - 107 mmol/L 08/22/2018 11:28 AM [facility] CO2 28 22 - 29 mmol/L 08/22/2018 11:28 AM [facility] Glucose 172(H) 70 - 115 mg/dL 08/22/2018 11:28 AM [facility] Calcium 9.4 8.4 - 10.2 mg/dL 08/22/2018 11:28 AM [facility] Anion Gap 11 8 - 18 08/22/2018 11:28 AM [facility] BUN/Creatinine Ratio 18 7 - 23 08/22/2018 11:28 AM [facility] Osmolality Calculated 295 270 - 300 mOsm/kg 08/22/2018 11:28 AM [facility] eGFR >60 >60 mL/min/1.7 3 m2 08/22/2018 11:28 AM [facility] Blood BLOOD SPECIMEN / Unknown 08/22/2018 10:57 AM LEARNING SERVICES COORDINATOR 08/22/2018 11:00 AM LEARNING SERVICES COORDINATOR Jose Saleem DO LAB - CHEMISTRY [place] [address] [phone] * PHOSPHORUS BLOOD (08/22/2018 10:57 AM LEARNING SERVICES COORDINATOR) Phosphorus 2.3 2.3 - 4.7 mg/dL 08/22/2018 11:29 AM [facility] Blood BLOOD SPECIMEN / Unknown 08/22/2018 10:57 AM LEARNING SERVICES COORDINATOR 08/22/2018 11:00 AM LEARNING SERVICES COORDINATOR Milagro Rizo [employer]QUIPMENT SERVICE TECHNICIAN LAB - CHEMISTRY ORDERABLES [address] [address], [place] [phone] * (ABNORMAL) MAGNESIUM BLOOD (08/22/2018 10:57 AM LEARNING SERVICES COORDINATOR) Magnesium 1.4(L) 1.6 - 2.6 mg/dL 08/22/2018 11:29 AM LEARNING SERVICES COORDINATOR [facility] Blood BLOOD SPECIMEN / Unknown 08/22/2018 10:57 AM LEARNING SERVICES COORDINATOR 08/22/2018 11:00 AM LEARNING SERVICES COORDINATOR Milagro Suarezs [employer] LEAD[employer]HEAVY EQUIPMENT SERVICE TECHNICIAN LAB - CHEMISTRY ORDERABLES Performing Organization Address [facility] Co de Phone Number [facility] [address] [phone] * RETYPE PATIENT (08/22/2018 7:47 AM LEARNING SERVICES COORDINATOR) ABO 08/22/2018 9:00 AM [facility] Rh Type 08/22/2018 9:00 AM LEARNING SERVICES COORDINATOR [facility] Typem 08/22/2018 9:00 AM [facility] Interpretation 08/22/2018 9:00 AM [facility] Blood BLOOD SPECIMEN / Unknown 08/22/2018 7:47 AM LEARNING SERVICES COORDINATOR 08/22/2018 7:54 AM LEARNING SERVICES COORDINATOR Narrative [facility] - 08/22/2018 9:00 AM LEARNING SERVICES COORDINATOR Re-type confirmed per [facility] Blood Bank policies & procedures. Results documented in department. Brian Gallo MD LAB - BLOOD BANK ORD ERABLES Performing Organization Address City/[facility]/ZIP Co de Phone Number [facility] [address] [place] [address] * XR CHEST 2VW (08/22/2018 4:26 AM LEARNING SERVICES COORDINATOR) Anatomical Region Laterality Modality Chest Radiographic Maria Fernanda ging 08/22/2018 8:06 AM LEARNING SERVICES COORDINATOR Impressions 08/22/2018 11:24 AM LEARNING SERVICES COORDINATOR IMPRESSION: No acute pulmonary process. Dictated by Madelyn Li MD (residential service technician). This report was approved by Madelyn Li on 08/22/2018 10:[address] CLEVELAND Moran MD have personally reviewed and interpreted this examination/study. This report was electronically signed by Dr. CLEVELAND LIU MD on 08/22/2018 11:24 AM . Narrative 08/22/2018 11:24 AM LEARNING SERVICES COORDINATOR EXAMINATION: XR CHEST 2VW HISTORY: Rib fractures COMPARISON: Comparison made to chest radiograph dated 08/20/2018. FINDINGS: There is no focal consolidation, pleural effusion, or pneumothorax. The cardiomediastinal silhouette is normal. A questionable nondisplaced right posterior rib fracture better seen on prior CT. Procedure Note Clevealnd Liu MD - 08/22/2018 EXAMINATION: XR CHEST 2VW HISTORY: Rib fractures COMPARISON: Comparison made to chest radiograph dated 08/20/2018. FINDINGS: There is no focal consolidation, pleural effusion, or pneumothorax. The cardiomediastinal silhouette is normal. A questionable nondisplaced right posterior rib fracture better seen on prior CT. IMPRESSION: No acute pulmonary process. Dictated by Madelyn Li MD (residential service technician). This report was approved by Madelyn Li on 08/22/2018 10:[address] CLEVELAND Moran MD have personally reviewed and interpretedthis examination/study. This report was electronically signed by Dr. CLEVELAND LIU MD on08/22/2018 11:24 AM . Jose Saleem DO DIAGNOSTIC IMAGING O RDERABLES * (ABNORMAL) CBC W AUTO DIFFERENTIAL (08/22/2018 2:55 AM LEARNING SERVICES COORDINATOR) Only the most recent of3 resultswithin the time period is included. WBC 11.4(H) 3.5 - 10.5 10 3/uL 08/22/2018 3:15 AM [facility] RBC 3.97 3.90 - 5.00 10 6/uL 08/22/2018 3:15 AM [facility] Hemoglobin 9.7(L) 12.0 - 15.5 g/dL 08/22/2018 3:15 AM [facility] Hematocrit 31.7(L) 35.0 - 45.0 % 08/22/2018 3:15 AM [facility] MCV 79.8(L) 81.0 - 97.0 fL 08/22/2018 3:15 AM [facility] MCH 24.4(L) 28.0 - 34.0 pg 08/22/2018 3:15 AM [facility] MCHC 30.6(L) 32.0 - 36.0 g/dL 08/22/2018 3:15 AM [facility] Platelet Count 351 150 - 400 10 3/uL 08/22/2018 3:15 AM [facility] RDW-SD 46.2 36.0 - 50.0 fL 08/22/2018 3:15 AM [facility] RDW-CV 16.1(H) 11.2 - 14.8 % 08/22/2018 3:15 AM [facility] MPV 11.0 9.3 - 12.8 fL 08/22/2018 3:15 AM [facility] nRBC Absolute 0.00 0 10 3/uL 08/22/2018 3:15 AM [facility] nRBC Auto 0.0 0 /100 WBC 08/22/2018 3:15 AM [facility] Neutrophils % 71.4(H) 35.0 - 70.0 % 08/22/2018 3:15 AM [facility] Lymphocytes % 20.0 19.7 - 55.1 % 08/22/2018 3:15 AM [facility] Monocytes % 7.6 3.0 - 15.0 % 08/22/2018 3:15 AM [facility] Eosinophils % 0.4 0.0 - 6.0 % 08/22/2018 3:15 AM [facility] Basophil % 0.3 0.0 - 1.5 % 08/22/2018 3:15 AM [facility] Neutrophils Absolute 8.2(H) 1.6 - 7.0 10 3/uL 08/22/2018 3:15 AM [facility] Lymphocyte Absolute 2.3 0.8 - 2.9 10 3/uL 08/22/2018 3:15 AM [facility] Monocytes Absolute 0.87(H) 0.14 - 0.66 10 3/uL 08/22/2018 3:15 AM [facility] Eosinophils Absolute 0.05 0.00 - 0.45 10 3/uL 08/22/2018 3:15 AM [facility] Basophils Absolute 0.03 0.00 - 0.06 10 3/uL 08/22/2018 3:15 AM [facility] Immature Granulocytes % 0.3 0.0 - 1.0 % 08/22/2018 3:15 AM [facility] Blood BLOOD SPECIMEN / Unknown Lab Venipuncture / Unknown 08/22/2018 2:55 AM LEARNING SERVICES COORDINATOR 08/22/2018 3:06 AM [facility] Jose Saleem DO LAB - HEMATOLOGY ORD ERABLES [facility] [address] [phone] * (ABNORMAL) HEMOGLOBIN A1C (08/21/2018 4:27 AM [facility]) Hemoglobin A1c 6.4(H) 4.4 - 6.3 % 08/21/2018 7:27 AM [facility] Estimated Average Glucose 137 mg/dL 08/21/2018 7:27 AM [facility] Comment: HbA1c Interpretation: Treatment target values recommended by ADA and other clinical organizations should be used to evaluate metabolic control in patients. Treatment Target Values: Normal : < 5.7% Pre-diabetes: 5.7-6.4% Diabetes: Equal to or greater than 6.5% Reference: [place] [employer] Standards of Care in Diabetes -2014 In patients 70 years and older consider HbA1c target range of 7.0-7.5% Reference: Diabetes Mellitus in Older People: Position Statement on behalf of the International Association of Gerontology and Geriatrics (IAGG), the Diabetes Working Alliance Party for Older People (EDWPOP), and the International Task Force of Experts in Diabetes. Javi Bowers, et al. J [place] [employer]. 2012 Test results diagnostic of diabetes should be repeated for confirmation. The Tosoh G8 assay for the measurement of HbA1c is a National Glycohemoglobin Standardization Program (NGSP)certified method. Results for patients with HbE disease should be interpreted with caution as this hemoglobinopathy has been shown to interfere with the Tosoh G8 assay. Blood BLOOD SPECIMEN / Unknown Venipuncture / Unknown 08/21/2018 4:27 AM LEARNING SERVICES COORDINATOR 08/21/2018 4:30 AM LEARNING SERVICES COORDINATOR Elda Miller DO LAB - CHEMISTRY ORDE MARISA Performing Organization Address City/[facility]/ZIP Co de Phone Number [facility] [address] [place] [address] * (ABNORMAL) DIFFERENTIAL MANUAL (08/21/2018 4:27 AM LEARNING SERVICES COORDINATOR) WBC (corrected for NRBC) 10.3 10 3/uL 08/21/2018 11:16 AM [facility] Total Cell Count 100 08/21/2018 11:16 AM [facility] Neutrophils Absolute Manual 8.03(H) 1.60 - 7.00 10 3/uL 08/21/2018 11:16 AM [facility] Comment:(BANDS+SEGS) x WBC = NEUT # (ANC) Lymphocyte Absolute Manual 1.75 0.80 - 2.90 10 3/uL 08/21/2018 11:16 AM [facility] Monocytes Absolute Manual 0.52 0.14 - 0.66 10 3/uL 08/21/2018 11:16 AM [facility] Neutrophil % Manual 78(H) 30 - 60 % 08/21/2018 11:16 AM [facility] Lymphocyte % Manual 17(L) 20 - 45 % 08/21/2018 11:16 AM [facility] Monocytes % Manual 5 2 - 10 % 08/21/2018 11:16 AM [facility] Platelet Estimate Adequate Adequate 08/21/2018 11:16 AM [facility] Microcytes 1+(A) None 08/21/2018 11:16 AM [facility] Hypochromia 1+(A) None 08/21/2018 11:16 AM [facility] Ovalocytes 1+(A) None 08/21/2018 11:16 AM [facility] Blood BLOOD SPECIMEN / Unknown 08/21/2018 4:27 AM LEARNING SERVICES COORDINATOR 08/21/2018 10:30 AM LEARNING SERVICES COORDINATOR Jose Saleem DO LAB - HEMATOLOGY ORD KELSI [address] [phone] * EKG 12-LEAD (08/20/2018 7:55 PM LEARNING SERVICES COORDINATOR) Ventricular Rate 86 BPM [facility] Atrial Rate 86 BPM [facility] P-R Interval 152 ms [facility] QRS Duration ms 90 ms [facility] Q-T Interval ms 346 ms [facility] QTC Calculation (Bezet) 414 ms [facility] Calculated P [place] 58 degrees [facility] Calculated R [place] -13 degrees [facility] Calculated T [place] 45 degrees [facility] Interpretation EKG NORMAL SINUS RHYTHM Early transition MINIMAL VOLTAGE CRITERIA FOR LVH, MAY BE NORMAL VARIANT BORDERLINE ECG NO PREVIOUS ECGS AVAILABLE Confirmed by Chris CR STEVEN ([id number]), marketing editor ARMEN HIDALGO ([id number]) on 09/08/2018 12:06:57 PM [facility] 08/20/2018 7:55 PM LEARNING SERVICES COORDINATOR 09/08/2018 12:06 PM LEARNING SERVICES COORDINATOR Marvin Sewell DO ECG ORDERABLES [facility] MUSE * CT CHEST ABDOMEN PELVIS W CONT (08/20/2018 4:48 PM LEARNING SERVICES COORDINATOR) Anatomical Region Laterality Modality Chest, Abdomen, Pelvis Computed Tomography 08/20/2018 4:39 PM LEARNING SERVICES COORDINATOR Impressions 08/21/2018 10:37 AM LEARNING SERVICES COORDINATOR IMPRESSION: 1. Nondisplaced right posterior first rib fracture. Apparent vertical lucency through the partially imaged C6 vertebral body after comparison with outside cervical spine CT performed at [facility] on 08/20/2018 is favored to represent degenerative changes/artifact. Correlation with clinical symptoms and outside imaging report is recommended. 2. Otherwise, no acute visceral, vascular, or osseus injury identified in the chest, abdomen, or pelvis. 3. Mild central intrahepatic and extrahepatic duct dilatation, likely secondary to postcholecystectomy state. Mild pancreatic ductal dilatation without CT evidence of pancreatic head mass. Correlation with liver function tests may be considered. 4. Multiple hypoattenuating renal lesions measuring up to 2.6 cm, which measure greater than simple fluid, and likely represent proteinaceous cysts. This may be confirmed with renal ultrasound. 5. Hypoattenuating lesion measuring 1.1 cm in the anterior aspect of the spleen may represent a pseudocyst. Preliminary findings were discussed with Dr. Miller by Dr. Francis on 08/20/2018 at 5:52 PM. Dictated by Willy Francis MD (residential service technician). I, Dr. CLEVELAND MARTÍNEZ M.D. have personally reviewed and interpreted this examination/study. This report was electronically signed by CLEVELAND MARTÍNEZ M.D. on 08/21/2018 10:37 AM . Narrative 08/21/2018 10:37 AM LEARNING SERVICES COORDINATOR EXAMINATION: Computed tomography (CT) of the chest, abdomen, and pelvis with contrast HISTORY: Chest and abdominal pain after fall TECHNIQUE: CT of the chest, abdomen, and pelvis was performed after the uneventful administration of 100 mL of Isovue-370 intravenous contrast according to standard protocol. COMPARISON: No prior study is available for comparison. 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 The aorta and main pulmonary arteries are normal in course and caliber. Mild bilateral dependent atelectasis is present. Otherwise no focal consolidation is seen. No pleural effusion or focal pleural thickening is identified. There is no evidence of pneumothorax. No suspicious pulmonary nodule is identified. The trachea is patent and midline. The heart size is normal. No pericardial effusion is present. No mediastinal, hilar, supraclavicular, or axillary lymphadenopathy is seen. The thyroid gland enhances homogenously. Abdomen/pelvis: The liver enhances homogenously. The gallbladder is surgically absent. There is mild central intrahepatic and extrahepatic bile ductal dilatation, likely secondary to post cholecystectomy state. There is mild dilatation of the pancreatic duct within the pancreatic head measuring up to 4 mm. The pancreas is otherwise normal in appearance without CT evidence of obstructing mass in the pancreatic head. A 1.1 cm hypoattenuating lesion is identified in the anterior aspect of the spleen (series 4, image 27) which measures higher than simple fluid and may represent a pseudocyst. The adrenal glands are normal. Two hypoattenuating lesions (measuring greater than simple fluid) are identified within the left kidney measuring 2.6 and 2.2 cm (series 4, image 32 and 38), likely representing proteinaceous cysts. Multiple additional subcentimeter low attenuating lesions in both kidneys are too small to characterize but likely represent cysts. Otherwise the kidneys enhance symmetrically. There is no evidence of renal calculus or hydronephrosis. The esophagus and stomach appear normal. The small bowel and large bowel are normal in caliber without evidence of wall thickening or obstruction. The appendix is not seen; however, no inflammatory changes are seen in the right lower quadrant. No free air or free fluid is identified within the abdomen. There is no abdominal lymphadenopathy. The urinary bladder is markedly distended with fluid and appears normal. The uterus is absent. No free fluid is seen within the pelvis. There is no pelvic lymphadenopathy. No suspicious lytic or blastic osseous lesions are identified. There is a nondisplaced right posterior first rib fracture. Vertical lucency through the partially imaged C6 vertebral body may represent a cervical spine fracture (series 7, image 92). Degenerative changes are present in the hips bilaterally, right greater than left. Multilevel degenerative changes are noted in the spine. A pain pump is noted in the right lower anterior wall with an intrathecal lead terminating within the spinal canal at the level of T11. Procedure Note Cleveland Martínez MD - 08/21/2018 EXAMINATION: Computed tomography (CT) of the chest, abdomen, and pelvis with contrast HISTORY: Chest and abdominal pain after fall TECHNIQUE: CT of the chest, abdomen, and pelvis was performed after the uneventful administration of 100 mL of Isovue-370 intravenous contrast according to standard protocol. COMPARISON: No prior study is available for comparison. 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 The aorta and main pulmonary arteries are normal in course and caliber. Mild bilateral dependent atelectasis is present. Otherwise no focal consolidation is seen. No pleural effusion or focal pleural thickeningis identified. There is no evidence of pneumothorax. No suspiciouspulmonary nodule is identified. The trachea is patent and midline. The heart size is normal. No pericardial effusion is present. No mediastinal, hilar, supraclavicular, or axillary lymphadenopathy isseen. The thyroid gland enhances homogenously. Abdomen/pelvis: The liver enhances homogenously. The gallbladder is surgically absent. There is mild central intrahepatic and extrahepatic bile ductal dilatation, likely secondary to post cholecystectomy state. There ismild dilatation of the pancreatic duct within the pancreatic head measuringup to 4 mm. The pancreas is otherwise normal in appearance without CT evidence of obstructing mass in the pancreatic head. A 1.1 cm hypoattenuating lesion is identified in the anterior aspect of thespleen (series 4, image 27) which measures higher than simple fluid and may represent a pseudocyst. The adrenal glands are normal. Twohypoattenuating lesions (measuring greater than simple fluid) are identified within the left kidney measuring 2.6 and 2.2 cm (series 4, image 32 and 38), likely representing proteinaceous cysts. Multiple additional subcentimeter low attenuating lesions in both kidneys are too small to characterize but likely represent cysts. Otherwise the kidneys enhance symmetrically.There is no evidence of renal calculus or hydronephrosis. The esophagus and stomach appear normal. The small bowel and large bowel are normal in caliber without evidence of wall thickening orobstruction. The appendix is not seen; however, no inflammatory changes are seen inthe right lower quadrant. No free air or free fluid is identified within the abdomen. There is no abdominal lymphadenopathy. The urinary bladder is markedly distended with fluid and appears normal. The uterus is absent. No free fluid is seen within the pelvis. There isno pelvic lymphadenopathy. No suspicious lytic or blastic osseous lesions are identified. There [place] nondisplaced right posterior first rib fracture. Vertical lucencythrough the partially imaged C6 vertebral body may represent a cervical spine fracture (series 7, image 92). Degenerative changes are present in the hips bilaterally, right greater than left. Multilevel degenerativechanges are noted in the spine. A pain pump is noted in the right lower anterior wall with an intrathecal lead terminating within the spinal canal at the level of T11. IMPRESSION: 1. Nondisplaced right posterior first rib fracture. Apparent vertical lucency through the partially imaged C6 vertebral body after comparison with outside cervical spine CT performed at [facility] on 08/20/2018 is favored to represent degenerative changes/artifact. Correlation with clinical symptoms and outside imaging report is recommended. 2. Otherwise, no acute visceral, vascular, or osseus injury identifiedin the chest, abdomen, or pelvis. 3. Mild central intrahepatic and extrahepatic duct dilatation, likely secondary to postcholecystectomy state. Mild pancreatic ductaldilatation without CT evidence of pancreatic head mass. Correlation with liver function tests may be considered. 4. Multiple hypoattenuating renal lesions measuring up to 2.6 cm, which measure greater than simple fluid, and likely represent proteinaceous cysts. This may be confirmed with renal ultrasound. 5. Hypoattenuating lesion measuring 1.1 cm in the anterior aspect of the spleen may represent a pseudocyst. Preliminary findings were discussed with Dr. Miller by Dr. Francis on 08/20/2018 at 5:52 PM. Dictated by Willy Francis MD (residential service technician). I, Dr. CLEVELAND MARTÍNEZ M.D. have personally reviewed and interpretedthis examination/study. This report was electronically signed by CLEVELAND MARTÍNEZ M.D. on08/21/2018 10:37 AM . Elda Paul DO CT ORDERABLES * CT LUMBAR SPINE WO CONTRAST (08/20/2018 4:48 PM LEARNING SERVICES COORDINATOR) Anatomical Region Laterality Modality Spine Computed Tomogra phy 08/20/2018 4:54 PM LEARNING SERVICES COORDINATOR Impressions 08/21/2018 12:29 PM LEARNING SERVICES COORDINATOR IMPRESSION: 1. No evidence of acute fracture in the thoracic or lumbar spine. 2. Nondisplaced posterior right first rib fracture. Report dictated by Julian Johnson MD (residential service technician). I, Dr. DEEPALI GERONIMO have personally reviewed and interpreted this examination/study. This report was electronically signed by DEEPALI GERONIMO on 08/21/2018 12:29 PM . Narrative 08/21/2018 12:29 PM LEARNING SERVICES COORDINATOR EXAMINATION: 1. Computed tomography (CT) of the thoracic spine without contrast 2. CT of the lumbar spine without contrast HISTORY: W19.XXXA: Fall, initial encounter TECHNIQUE: Reformatted axial, sagittal, and coronal images of the thoracic and lumbar spine were obtained by the technologist from a concurrently performed body CT and sent to the workstation for review. FINDINGS: No prior study is available for comparison at the time of this dictation. Thoracic spine: The alignment is normal. Vertebral bodies are normal in height without evidence of acute fracture. The intervertebral discs appear normal. No central canal stenosis is seen. The facets appear normal. No neural foraminal stenosis is seen. Nondisplaced posterior right first rib fracture is seen. Lumbar spine: The alignment is normal. Vertebral bodies are normal in height without evidence of acute fracture. The intervertebral discs appear normal. No central canal stenosis is seen. There are multilevel degenerative changes of the facets. No significant neural foraminal stenosis is seen. A spinal cord stimulator lead enter the spinal canal at the level of L3-4 and terminates at the level of T10-11. Procedure Note Deepali Geronimo MD - 08/21/2018 EXAMINATION: 1. Computed tomography (CT) of the thoracic spine without contrast 2. CT of the lumbar spine without contrast HISTORY: W19.XXXA: Fall, initial encounter TECHNIQUE: Reformatted axial, sagittal, and coronal images of thethoracic and lumbar spine were obtained by the technologist from a concurrently performed body CT and sent to the workstation for review. FINDINGS: No prior study is available for comparison at the time of this dictation. Thoracic spine: The alignment is normal. Vertebral bodies are normal in height without evidence of acute fracture. The intervertebral discs appear normal. No central canal stenosis is seen. The facets appear normal. No neural foraminal stenosis is seen. Nondisplaced posterior right first rib fracture is seen. Lumbar spine: The alignment is normal. Vertebral bodies are normal in height without evidence of acute fracture. The intervertebral discs appear normal. No central canal stenosis is seen. There are multilevel degenerativechanges of the facets. No significant neural foraminal stenosis is seen. Aspinal cord stimulator lead enter the spinal canal at the level of L3-4 and terminates at the level of T10-11. IMPRESSION: 1. No evidence of acute fracture in the thoracic or lumbar spine. 2. Nondisplaced posterior right first rib fracture. Report dictated by Julian Johnson MD (residential service technician). I, Dr. DEEPALI GERONIMO have personally reviewed and interpreted this examination/study. This report was electronically signed by DEEPALI GERONIMO on 08/21/2018 12:29PM . Elda Miller DO CT ORDERABLES * CT THORACIC SPINE WO CONTRAST (08/20/2018 4:48 PM LEARNING SERVICES COORDINATOR) Anatomical Region Laterality Modality Spine Computed Tomogra phy 08/20/2018 4:54 PM LEARNING SERVICES COORDINATOR Impressions 08/21/2018 12:29 PM LEARNING SERVICES COORDINATOR IMPRESSION: 1. No evidence of acute fracture in the thoracic or lumbar spine. 2. Nondisplaced posterior right first rib fracture. Report dictated by Julian Johnson MD (residential service technician). I, Dr. DEEPALI GERONIMO have personally reviewed and interpreted this examination/study. This report was electronically signed by DEEPALI GERONIMO on 08/21/2018 12:29 PM . Narrative 08/21/2018 12:29 PM LEARNING SERVICES COORDINATOR EXAMINATION: 1. Computed tomography (CT) of the thoracic spine without contrast 2. CT of the lumbar spine without contrast HISTORY: W19.XXXA: Fall, initial encounter TECHNIQUE: Reformatted axial, sagittal, and coronal images of the thoracic and lumbar spine were obtained by the technologist from a concurrently performed body CT and sent to the workstation for review. FINDINGS: No prior study is available for comparison at the time of this dictation. Thoracic spine: The alignment is normal. Vertebral bodies are normal in height without evidence of acute fracture. The intervertebral discs appear normal. No central canal stenosis is seen. The facets appear normal. No neural foraminal stenosis is seen. Nondisplaced posterior right first rib fracture is seen. Lumbar spine: The alignment is normal. Vertebral bodies are normal in height without evidence of acute fracture. The intervertebral discs appear normal. No central canal stenosis is seen. There are multilevel degenerative changes of the facets. No significant neural foraminal stenosis is seen. A spinal cord stimulator lead enter the spinal canal at the level of L3-4 and terminates at the level of T10-11. Procedure Note Deepali Geronimo MD - 08/21/2018 EXAMINATION: 1. Computed tomography (CT) of the thoracic spine without contrast 2. CT of the lumbar spine without contrast HISTORY: W19.XXXA: Fall, initial encounter TECHNIQUE: Reformatted axial, sagittal, and coronal images of thethoracic and lumbar spine were obtained by the technologist from a concurrently performed body CT and sent to the workstation for review. FINDINGS: No prior study is available for comparison at the time of this dictation. Thoracic spine: The alignment is normal. Vertebral bodies are normal in height without evidence of acute fracture. The intervertebral discs appear normal. No central canal stenosis is seen. The facets appear normal. No neural foraminal stenosis is seen. Nondisplaced posterior right first rib fracture is seen. Lumbar spine: The alignment is normal. Vertebral bodies are normal in height without evidence of acute fracture. The intervertebral discs appear normal. No central canal stenosis is seen. There are multilevel degenerativechanges of the facets. No significant neural foraminal stenosis is seen. Aspinal cord stimulator lead enter the spinal canal at the level of L3-4 and terminates at the level of T10-11. IMPRESSION: 1. No evidence of acute fracture in the thoracic or lumbar spine. 2. Nondisplaced posterior right first rib fracture. Report dictated by Julian Johnson MD (residential service technician). Dr. DEEPALI Moran have personally reviewed and interpreted this examination/study. This report was electronically signed by DEEPALI GERONIMO on 08/21/2018 12:29PM . Elda Miller DO CT ORDERABLES * XR CHEST 1VW PORTABLE (08/20/2018 4:30 PM LEARNING SERVICES COORDINATOR) Anatomical Region Laterality Modality Chest Radiographic Maria Fernanda ging 08/20/2018 4:30 PM LEARNING SERVICES COORDINATOR Impressions 08/21/2018 2:14 PM LEARNING SERVICES COORDINATOR IMPRESSION: 1.No acute pulmonary process. Report dictated by Julian Johnson M.D. (residential service technician). Dr. CLEVELAND Moran M.D. have personally reviewed and interpreted this examination/study. This report was electronically signed by CLEVELAND MARTÍNEZ M.D. on 08/21/2018 2:14 PM . Narrative 08/21/2018 2:14 PM LEARNING SERVICES COORDINATOR EXAMINATION: XR CHEST 1VW PORTABLE, 08/20/2018 4:31 PM HISTORY: Fall, initial encounter COMPARISON: No prior study is available for comparison. FINDINGS: There is no focal consolidation, pleural effusion, or pneumothorax. The cardiac silhouette is normal. The mediastinal silhouette is normal. The visible bony thorax is intact. Procedure Note Cleveland Martínez MD - 08/21/2018 EXAMINATION: XR CHEST 1VW PORTABLE, 08/20/2018 4:31 PM HISTORY: Fall, initial encounter COMPARISON: No prior study is available for comparison. FINDINGS: There is no focal consolidation, pleural effusion, or pneumothorax. The cardiac silhouette is normal. The mediastinal silhouette is normal. The visible bony thorax is intact. IMPRESSION: 1.No acute pulmonary process. Report dictated by Julian Johnson M.D. (residential service technician). I, Dr. CLEVELAND MARTÍNEZ M.D. have personally reviewed and interpretedthis examination/study. This report was electronically signed by CLEVELAND MARTÍNEZ M.D. on08/21/2018 2:14 PM . Elda Miller DO DIAGNOSTIC IMAGING O RDERABLES * DRUG SCREEN TOX URINE PANEL (08/20/2018 4:27 PM LEARNING SERVICES COORDINATOR) Amphetamines Screen Urine Negative Negative: < 1000 ng/mL 08/20/2018 4:49 PM [facility] Barbiturates Screen Urine Negative Negative: < 200 ng/mL 08/20/2018 4:49 PM [facility] Benzodiazepine Screen Urine Negative Negative: < 200 ng/mL 08/20/2018 4:49 PM [facility] Opiates Urine Negative Negative: < 300 ng/mL 08/20/2018 4:49 PM [facility] Cocaine Metabolites Urine Negative Negative: < 300 ng/mL 08/20/2018 4:49 PM [facility] Phencyclidine Screen Urine Negative Negative: < 25 ng/ml 08/20/2018 4:49 PM [facility] Cannabinoids Screen Urine Negative Negative: <50 ng/mL 08/20/2018 4:49 PM [facility] Methadone Screen Urine Negative Negative: < 300 ng/mL 08/20/2018 4:49 PM [facility] Urine URINE / Unknown Collection / Unknown 08/20/2018 4:27 PM LEARNING SERVICES COORDINATOR 08/20/2018 4:34 PM [facility] - 08/20/2018 4:49 PM LEARNING SERVICES COORDINATOR The Urine Toxicology Screening Panel does not screen for Propoxyphene, Meprobamate, Carisoprodol, Trazodone, pduz-syd-qciwduj medications and/or volatiles (Acetone, Isopropanol, Methanol or Ethylene Glycol). Ethanol, Salicylate, Acetaminophen, Tricyclic Antidepressants and several therapeutic drugs may be individually assayed in serum or plasma specimen. Toxicology testing by the [facility] is an aid to medical diagnosis and treatment of patients. No documented chain of custody was maintained. Results are intended to be used for clinical purposes only. Elda Miller DO LAB - URINE CHEMISTR Y ORDERABLES Performing Organization Address City/[facility]/ZIP Co de Phone Number [address] [phone] * PTT [facility] (08/20/2018 4:26 PM LEARNING SERVICES COORDINATOR) APTT 26.0 23.0 - 38.4 Seconds 08/20/2018 5:08 PM [facility] Comment: Suggested therapeutic range for full dose I.V. heparin therapy for venous thromboembolism is 66.0-91.0 seconds. Blood BLOOD SPECIMEN / Unknown Venipuncture / Unknown 08/20/2018 4:26 PM LEARNING SERVICES COORDINATOR 08/20/2018 4:34 PM LEARNING SERVICES COORDINATOR Elda Miller DO LAB - COAGULATION OR DERABLES Performing Organization Address [facility] Co de Phone Number [address] [phone] * PT-INR [facility] (08/20/2018 4:26 PM LEARNING SERVICES COORDINATOR) [facility] PT 12.8 12.1 - 14.8 Seconds 08/20/2018 5:07 PM [facility] INR 1.0 See Comment 08/20/2018 5:07 PM [facility] Comment: The suggested therapeutic range for standard coumadin (warfarin) therapy is an INR of 2.0-3.0. For high-risk patients (Mechanical Mitral Valve Prosthesis, etc.), the suggested prophylactic therapeutic range is an INR of 2.5-3.5. Blood BLOOD SPECIMEN / Unknown Venipuncture / Unknown 08/20/2018 4:26 PM LEARNING SERVICES COORDINATOR 08/20/2018 4:34 PM LEARNING SERVICES COORDINATOR Elda Miller DO LAB - COAGULATION OR DERABLES Performing Organization Address City/[facility]/ZIP Co de Phone Number [address] [phone] * TYPE + SCREEN PANEL (08/20/2018 4:26 PM LEARNING SERVICES COORDINATOR) Pathologist [facility] Antibody Screen NEG 8 5:15 PM LEARNING SERVICES COORDINATOR [facility] BLOOD B[facility] LAB ABO Rh A POS 08/20/2018 5:15 PM [facility] BLOOD [facility] LAB Blood Bank BLOOD SPECIMEN / Unknown Venipuncture / Unknown 08/20/2018 4:26 PM LEARNING SERVICES COORDINATOR 08/20/2018 4:35 PM LEARNING SERVICES COORDINATOR Elda Miller LAB - BLOOD BANK ORD ERABLES [facility] BLOOD BANK LAB [address] * (ABNORMAL) COMPREHENSIVE METABOLIC PANEL (08/20/2018 4:26 PM LEARNING SERVICES COORDINATOR) BUN 22 7 - 26 mg/dL 08/20/2018 4:52 PM [facility] Creatinine 0.9 0.6 - 1.2 mg/dL 08/20/2018 4:52 PM [facility] Sodium 141 136 - 145 mmol/L 08/20/2018 4:52 PM [facility] Potassium 3.4(L) 3.5 - 4.5 mmol/L 08/20/2018 4:52 PM [facility] Chloride 105 98 - 107 mmol/L 08/20/2018 4:52 PM [facility] CO2 23 22 - 29 mmol/L 08/20/2018 4:52 PM [facility] Glucose 171(H) 70 - 115 mg/dL 08/20/2018 4:52 PM [facility] Calcium 9.9 8.4 - 10.2 mg/dL 08/20/2018 4:52 PM [facility] Protein Total 7.2 6.0 - 8.3 g/dL 08/20/2018 4:52 PM [facility] Albumin 4.0 3.4 - 5.0 g/dL 08/20/2018 4:52 PM [facility] Bilirubin Total 0.5 0.2 - 1.2 mg/dL 08/20/2018 4:52 PM [facility] Alkaline Phosphatase 80 40 - 150 Units/L 08/20/2018 4:52 PM [facility] ALT 69(H) 0 - 55 Units/L 08/20/2018 4:52 PM [facility] AST 100(H) 5 - 34 Units/L 08/20/2018 4:52 PM [facility] Anion Gap 16 8 - 18 08/20/2018 4:52 PM [facility] BUN/Creatinine Ratio 24(H) 7 - 23 08/20/2018 4:52 PM [facility] Osmolality Calculated 299 270 - 300 mOsm/kg 08/20/2018 4:52 PM [facility] Albumin/Globulin Ratio 1.3 1.1 - 2.3 08/20/2018 4:52 PM [facility] eGFR >60 >60 mL/min/1.7 3 m2 08/20/2018 4:52 PM [facility] Blood BLOOD SPECIMEN / Unknown Venipuncture / Unknown 08/20/2018 4:26 PM LEARNING SERVICES COORDINATOR 08/20/2018 4:34 PM LEARNING SERVICES COORDINATOR Elda Miller LAB - CHEMISTRY [place] Performing Organization Address [facility] Co de Phone Number [address] [phone] * ALCOHOL ETHYL BLOOD (08/20/2018 4:26 PM LEARNING SERVICES COORDINATOR) Interpretation Ethanol None Detected None Detected mg/dL 08/20/2018 4:52 PM [facility] Comment: Ethanol levels less than 10 mg/dL are resulted as None detected . Blood BLOOD SPECIMEN / Unknown Venipuncture / Unknown 08/20/2018 4:26 PM LEARNING SERVICES COORDINATOR 08/20/2018 4:34 PM LEARNING SERVICES COORDINATOR Elda Miller LAB - CHEMISTRY [place] [address] [phone] * (ABNORMAL) TEG PLATELET MAPPING (08/20/2018 4:25 PM LEARNING SERVICES COORDINATOR) Interpretation TEG See Comment 08/20/2018 6:44 PM [facility] BLOOD BANK LAB React-Time 3.8(L) 5.0 - 10.0 MIN 08/20/2018 6:44 PM [facility] BLOOD BANK LAB K-Time 0.8(L) 1.0 - 3.0 MIN 08/20/2018 6:44 PM [facility] BLOOD BANK LAB Angle A-BB 76.8(H) 53.0 - 72.0 Degrees 08/20/2018 6:44 PM [facility] BLOOD BANK LAB MA (CK) BB 75.1(H) 50.0 - 70.0 mm 08/20/2018 6:44 PM [facility] BLOOD [facility] LY30 0.0 0.0 - 8.0 % 08/20/2018 6:44 PM [facility] BLOOD [facility] CI-Coagulation Index 4.4(H) -3.0 - 3.0 08/20/2018 6:44 PM [facility] BLOOD BANK LAB MA-ADP 70.0 Reference Range: None mm 08/20/2018 6:44 PM [facility] BLOOD [facility] MA AA-BB 73.7 Reference Range: None mm 08/20/2018 6:44 PM [facility] BLOOD [facility] % ADP Inhibition 7.5 Reference Range:None % 08/20/2018 6:44 PM [facility] BLOOD [facility] G-Clot Strength 15.1(H) 4.5 - 11.0 d/sc 08/20/2018 6:44 PM [facility] BLOOD [facility] % AA Inhibition 2.1 Reference Range: None % 08/20/2018 6:44 PM [facility] BLOOD [facility] Blood BLOOD SPECIMEN / Unknown Lab Venipuncture / Unknown 08/20/2018 4:25 PM LEARNING SERVICES COORDINATOR 08/20/2018 4:34 PM [facility] BLOOD BANK LAB - 08/20/2018 6:44 PM LEARNING SERVICES COORDINATOR SEE BELOW TEG [place] Sample Type Interpretation TEG Value Hemostasis State R < than 4 min: Enzymatic Hypercoagulability R 11-14 min: Low Clotting Factors R > than 14 min: Very low clotting factors MA 46-54 mm: Low Platelet function MA 41-45 mm: Very low platelet function MA 40 mm or less: Extremely low platelet function MA > 73 mm: Platelet hypercoagulability R < 4 min and Enzymatic and platelet hypercoagulability MA > 73 mm: Angle < 45 deg: Low fibrinogen level LY30 at 7.5% or >, Primary Fibrinolysis CI < than 1.0: LY30 at 7.5% or >, Secondary fibrinolysis CI > than 3.0: LY30 < 7.5%, Prothrombotic state CI > 3.0: Brian Gallo MD LAB [facility] Organization Address City/State/ZIP Co de Phone Number [facility] BLOOD B[facility] LAB [address] Care Teams Window Glazier Relationship Specialty Start Date End Date Felipe Mckeon MD [address] [place] [address] PCP - General Family Medicine 08/20/18 Jeff Lau MD [address] [place] [address] Ophthalmology 09/05/18
--- OUTSIDE RECORDS SUMMARY | 2024-10-02 10:37 | XMS_ITS ---
Author Organization [facility] Lust have it! [facility] Address [address] [facility] [address] [place] [address] Care Team Providers Care Director Of Religious Life Name Role Phone Felipe Mckeon MD Primary Care Provider Narciso Woods Unavailable [phone] Alessandra Jackson Unavailable [phone] Social History Sex Assigned At : Social History Observation Description Sex Assigned At Female Encounters Encounter [facility] Date [facility] [place] [address] [place] [address] 09/12/2024 Alessandra Jackson Plan Of Treatment Next Appt Details Provider Name:Evie Holloway , 11/07/2024 01:30:00 PM, [facility], [address], [address], Provider Name:Alessandra Jackson , 08/28/2025 02:00:00 PM, [address], [address], [address], Provider Name:Alessandra Jackson , 09/04/2025 02:00:00 PM, [address], [address], [address], Provider Name:Alessandra Jackson , 09/11/2025 02:00:00 PM, [address], [address], [address], Provider Name:Alessandra Jackson , 09/18/2025 02:00:00 PM, [address], [address], [place], [address], Provider Name:Alessandra Jackson , 09/25/2025 02:00:00 PM, [address], [address], [place], [address], Provider Name:Alessandra Jackson , 10/02/2025 02:00:00 PM, [address], [address], [place], [address], Provider Name:Alessandra Jackson , 10/09/2025 02:00:00 PM, [address], [address], [place], [address], Provider Name:Alessandra Jackson , 10/16/2025 02:00:00 PM, [address], [address], [place], [address], Provider Name:Alessandra Jackson , 10/23/2025 02:00:00 PM, [facility], [place], [address], Provider Name:Alessandra Jackson , 10/30/2025 02:00:00 PM, [address], [address], [place], [address], Provider Name:Alessandra Jackson , 11/06/2025 02:00:00 PM, [address], [address], [place], [address], Provider Name:Alessandra Jackson , 11/13/2025 02:00:00 PM, [address], [address], [place], [address], Provider Name:Alessandra Jackson , 11/20/2025 02:00:00 PM, [address], [address], [place], [address], Provider Name:Alessandra Jackson , 11/27/2025 02:00:00 PM, [address], [address], [place], [address], Provider Name:Alessandra Jackson , 12/04/2025 02:00:00 PM, [address], [address], [address], Provider Name:Alessandra Jackson , 12/11/2025 02:00:00 PM, [address], [address], [address], Provider Name:Alessandra Jackson , 12/18/2025 02:00:00 PM, [address], [address], [address], Provider Name:Alessandra Jackson , 12/25/2025 02:00:00 PM, [address], [place] [address], [place], [address], Provider Name:Alessandra Jackson , 01/01/2026 02:00:00 PM, [facility] [address], [address], Provider Name:Alessandra Jackson , 01/08/2026 02:00:00 PM, [facility] [address], [address], Progress Notes * MALGORZATA PATOB:1950 (74 yo F)Acc No.[id number]:09/12/2024 Patient: VILMA MCCARTY Provider: Roselyn JACKSON LCSW :1950 A ge:74 Y S ex:Female Date:09/12/2024 Address:[address] [place] [address], [facility] Pcp:Felipe Mckeon MD Data: * Chief Complaints: * * Medical History: * Surgical History: * Hospitalization/Major Diagno stic Procedure: * Medications: * Vitals: Assessment: Plan: * Treatment: * Procedure Codes: * Billing Information: * Visit Code: * Procedure Codes: Care Plan Details* Group Therapy Template Group Summary G roup focused on additional symptoms and resulting behavior that can manifest from childhood trauma. How many clients in group 4 Discussion Topic C omplex PTSD symptoms and behaviors as well as performing the LEC-5 to see what other types of trauma might be contributing to their symptoms. Participation E ngagedComments :Group members asked questions and shared their experiences with trauma symptoms. Plan a gree to meet for next group PTSD Topic of the day C omples PTSD symptoms, behaviors and LEC-5 * CTOR WOMEN Sign off status: Completed true * Provider: Roselyn JACKSON LCSW Date: 09/12/2024 Generated for Aggie nelson/Amador/Camiitting on: 0 10/02/2024 10:37 AM DIRECTOR WOMEN
--- OUTSIDE RECORDS SUMMARY | 2024-10-02 10:37 | XMS_ITS | CONTINUITY OF CARE DOCUMENT ---
Author Name ray bell Address Unknown Organization [facility] Address [address] [place] [address] Phone [phone] Care Team Providers Care Staffing Specialist Name Role Phone Wil Gallagher MD Unavailable INSURANCE PROVIDERS Payer name Policy type / Coverage type Adrien red constitution party ID FOR LIFE [id number] [place] [employer] Medicare [id number]
--- OUTSIDE RECORDS SUMMARY | 2024-10-02 10:39 | XMS_ITS | Continuity of Care Document ---
Author Name [facility] Organization [facility] Care Team Providers Care Costume Design Teacher Name Role Phone [facility] Unavailable Unavailable Problems Combined list of problems from Department of Defense and Veterans Affairs facilities. It does not include entries that were removed or entered in error. Problem Status Onset Date Problem Type Date of Resolution Comments Source Diabetes mellitus Active Condition [facility] Pupils Paralysis Right Eye Inactive Condition most likely secondary to contamination from motion sickness patch DoD Suprapubic sling operation Inactive Condition not family, but personal history, healing well after surgery DoD nasal passage blockage (stuffiness) Inactive Condition DoD visit for: administrative purpose Inactive Condition DoD sinusitis acute maxillary Inactive Condition DoD acquired deformity of toe - hammer toe right Inactive Condition DoD acquired deformity of toe - hammer toe left Inactive Condition DoD callus Inactive Condition DoD female dyspareunia due to a physical condition Inactive Condition DoD Need For Vaccination Against Viral Diseases Inactive Condition DoD abdominal pain Inactive Condition DoD vitamin B12 deficiency Active Condition DoD conditions influencing health status Inactive Condition DoD gastroparesis Active Condition DoD food poisoning Inactive Condition DoD visit for: exam following high-risk medication Inactive Condition DoD cellulitis of the axilla Inactive Condition DoD hypercalcemia Inactive Condition DoD degree of visual impairment Inactive Condition DoD iron deficiency anemia Active Condition DoD urinary incontinence Active Condition DoD Supplies Cast Inactive Condition DoD esophagitis chronic reflux Active Condition DoD chronic pain syndrome Active Condition DoD diabetes mellitus type 2 Active Condition DoD Patient Education - Diabetes Inactive Condition DoD vertigo Inactive Condition DoD allergic rhinitis Active Condition DoD carpal tunnel syndrome Active Condition DoD restless legs syndrome Active Condition DoD conjunctivitis chronic allergic Inactive Condition DoD vitamin D deficiency Active Condition DoD diabetes mellitus diabetic peripheral neuropathy Active Condition DoD diabetes mellitus type 2 with complication uncontrolled Inactive Condition DoD Aftercare Following Surgery Inactive Condition DoD chronic pain Inactive Condition DoD dermatitis Inactive Condition DoD rectocele Inactive Condition DoD upper respiratory infection Inactive Condition DoD migraine headache Active Condition DoD drip or drainage down throat from above Inactive Condition DoD menopause Inactive Condition DoD constipation Inactive Condition DoD nutritional supplement toxicity Inactive Condition DoD motion sickness Inactive Condition DoD lower back pain Inactive Condition DoD cystitis chronic interstitial Inactive Condition DoD menopause symptomatic Active Condition DoD headache Inactive Condition DoD Patient Counseling: Inactive Condition D oD urine contains pus (pyuria) Inactive Condition DoD urinary frequency increased Inactive Condition DoD stress incontinence Active Condition Do D diabetes mellitus under control Inactive Condition DoD cystocele Inactive Condition DoD acquired deformity of nose Inactive Condition DoD fracture of nasal bones Inactive Condition DoD a fall Inactive Condition DoD facial pain Inactive Condition DoD Vaginal Pap Smear Inactive Condition DoD visit for: screening exam dermatological disorders Inactive Condition DoD postcoital bleeding Inactive Condition D oD incomplete emptying of bladder Inactive Condition DoD bipolar disorder Active Condition DoD candidiasis skin candidal intertrigo Inactive Condition DoD cellulitis Inactive Condition DoD diabetes mellitus Inactive Condition DoD pseudofolliculitis barbae Inactive Condition DoD difficulty swallowing (dysphagia) Inactive Condition DoD nausea Inactive Condition I did give patient a paper prescription for local pharmacy for Zofran 8 mg up to t.i.d. p.r.n. #45 RF0. I'm not sure if will honor that larger quantity of Zofran. DoD irritable bowel syndrome Active Condition constipation predominant with seepage/overflow diarrhea likely secondary to narcotics and polypharmacy. given inability to decrease her poly-pharmacy need, will add fiber 3-6grams daily and miralax. if this fails to resolve sxs, will start amitiza. discussed options with patient who voiced understanding and agreed with plan. pt is up to date with crc screening (next due in 2008 for TV adenoma). [facility] Administrative Evaluation Services Inactive Condition DoD dyspareunia Inactive Condition Advise p atient to use adequate lubrication, and if vulvar/vaginal irritation persists after intercourse, that she may use OTC hydrocortisone cream for relief. Follow-up in clinic p.r.n. DoD feared medical condition not demonstrated Inactive Condition Explained to th e patient that there is nothing on exam today that would be concerning for vulvar cancer, and that if she does have some lesion that comes and goes, that it is not present today and that cancer does not come and go. Asked her and her to continue to monitor and return to clinic if a suspicious lesion does present. [facility] acrochordon Inactive Condition Patient verbally consented for cryotherapy. Froze twice with full thaw between freezes. Tolerated well. [facility] benign skin neoplasm Inactive Condition The procedure including its indication, risks, benefits, and alternatives were discussed with the patient, and any questions were answered to the patient's satisfaction. A consent form (60MDG Form 100A) was completed by provider and patient and was witnessed.Indicatio n: Benign neoplasms removed for irritation, A) right front shoulder, B) left scapular areaLocal anesthesia was accomplished with lidocaine 2% with epinephrine 5.5 ml total. The patient's lesion was prepped in standard sterile fashion. Adequate anesthesia was confirmed. The lesion was scooped slightly to removal base. Good hemostasis was achieved with pressure.A sterile pressure dressing was applied. The specimen was sent for pathology. Will follow-up with patient if path results are abnormal.The procedure was well tolerated by the patient, and there were no complications. EBL: MinimalPrecautions were given for pain, swelling, discharge, bleeding, and fevers.The patient was discharged with good hemostasis and in stable condition. [facility] visit for: cardiovascular exam Inactive Condition Normal s inus rhythm. Normal 12-lead EKG. DoD pigmented nevus Inactive Condition The procedure including its indication, risks, benefits, and alternatives were discussed with the patient, and any questions were answered to the patient's satisfaction. A consent form (60MDG Form 100A) was completed by provider and patient and was witnessed.Indicatio n: neoplasm uncertain behavior, r/o melanoma, A) left breast.Local anesthesia was accomplished with lidocaine 2% with epinephrine 3 ml total. The patient's lesion was prepped in standard sterile fashion. Adequate anesthesia was confirmed. The lesion was shaved slightly scooped to obtain entire lesion.Good hemostasis was achieved with pressure and silver nitrate application (one stick used). A sterile pressure dressing was applied. The specimen was sent for pathology. Will follow-up with patient if path results are abnormal.The procedure was well tolerated by the patient, and there were no complications. EBL: MinimalPrecautions were given for pain, swelling, discharge, bleeding, and fevers.The patient was discharged with good hemostasis and in stable condition. [facility] benign skin neoplasm dermatofibroma Inactive Condition The procedure including its indication, risks, benefits, and alternatives were discussed with the patient, and any questions were answered to the patient's satisfaction. A consent form (60MDG Form 100A) was completed by provider and patient and was witnessed.Indicatio n: Removal due to patient discomfort, A) fibroma left inguinal area, B) fibroma right inguinal areaLocal anesthesia was accomplished with lidocaine 2% with epinephrine 4 ml total. The patient's lesion was prepped in standard sterile fashion. Adequate anesthesia was confirmed. The lesion was shaved just at the skin level, no scooped technique. Good hemostasis was achieved with pressure.A sterile pressure dressing was applied. The specimen was sent for pathology. Will follow-up with patient if path results are abnormal.The procedure was well tolerated by the patient, and there were no complications. EBL: MinimalPrecautions were given for pain, swelling, discharge, bleeding, and fevers.The patient was discharged with good hemostasis and in stable condition. DoD allergies Inactive Condition NA 18 0MG PO QD #90 [id number] FOR MAIL ORDER DoD Mammogram Screening Inactive Condition LOCAL - W RISHABH [facility] depression Active Condition DOING WEL L ON RX. STILL BEING FOLLOWED BY MENTAL HEALTH LOCAL. MEDS BEING ADJUSTED. DoD compound nevus Inactive Condition F/U F OR SHAVE BIOPSY OF LEFT BREAST DoD Abdomen Tenderness Direct LLQ Inactive Condition U/S LEFT OVARY - VERONICA. F/U PRN WORSENING SXS. [facility] Preventive Medicine Established Patient Checkup Adult 40-64 Years Inactive Condition NO HX CA. UTERU S REMOVED DUE TO INCREASE IN MENSES - HEAVY CYCLES AND UNABLE TO STOP THEM. NO PROBLEMS SINCE. DoD Hysterectomy Active Condition [facility] major depression, recurrent Inactive Condition WILL F/U WITH P SYCH VENEER CLIPPER NEXT MONDAY. SCHEDULED PHYSICAL ON OCTOBER 25 PRIOR TO LEAVING. WILL ORDER MAMMOGRAM AT THAT TIME. [facility] major depression recurrent severe Inactive Condition SIGNED WILL NOT HURT SELF. 3 SISTERS WITH DEPRESSION. [facility] visit for: issue repeat prescription for medication Inactive Condition ZOFRAN 8MG PO PRN #30 RF2. PRECISION XTRA TEST STRIPS BOX 100 3RF AND LANCETS BOX 100 3RF DoD Therapeutic Drug Assay Serum [place] Inactive Condition ordered repeat RFP and lithium level in CPRS. Likely will be low now due to holding by ER doc for > 2 days. If creatinine back to baseline will restart prior dose to f/u with LS. [facility] cystitis acute Inactive Condition finis alejo current meds. DoD hyperlipidemia Active Condition Thong nt's Lipitor 10 mg daily (which she does not need to refilled at this time) is doing a good job controlling her cholesterol, but not sufficient for triglycerides. She asked for my recommendation, and I stated that if she did not mind taking another medication, that there was a good option. She stated she would rather get it under control, and I prescribed generic fenofibrate 160 mg daily #90 RF3 for mail-in. Repeat lipid panel in 2 to 3 months. DoD visit for: issue repeat prescription Inactive Condition Rx Perco cet 5/325 one to two tablets every 6 hours p.r.n. #60 RF0. Follow-up in clinic within one month. DoD visit for: screening exam malignant neoplasm breast Inactive Condition Ordered routine screening mammogram. Follow-up if results are abnormal. DoD abdominal pain in the right upper belly (RUQ) Inactive Condition Discussed optio ns with patient to include repeating ultrasound or immediate referral to industrial health and safety professor. I do not feel a GI surgery referral is indicated at this time, as it is very unlikely that surgery would be performed based on current evidence. Instead, we opted to use a trial of PPI, in addition to the Zantac she is already taking. Prescribed Nexium 20 mg b.i.d. for the next 6 weeks. Reevaluate in clinic in one month. DoD hypertension systemic Active Condition Well controlled on lisinopril 20 mg daily. Refilled #90 RF3 for [facility]. Continue home BP monitoring. Follow-up in clinic p.r.n. DoD visit for: postsurgical exam Inactive Condition Doing well . Recommended routine follow-up with her automotive diagnostic technician and repeat surgery if they agree that that is appropriate. DoD visit for: preoperative exam Inactive Condition Normal EKG , and normal lab work. Follow-up in clinic after bunion surgery as directed by automotive diagnostic technician. 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 Medication Details Route Status Patient Instructions Prescription Expires Prescription Number Last Dispense Date Ordering Provider Order Date Order Qty Source ALPRAZOLAM (ALPRAZOLAM ), 0.25MG, TABLET, ORAL, SANDOZ, 1000 ea. BOTTLE Active [id number] 4 2023 2 Pharmac y Data Transac tion Service Facilit y amLODIPine (U/D) 5 MG ORAL TAB Be careful if taking OTCs.Ankush e or use exactly as directed . Active 10/08/2024 [id number] 4 [address] [place] [address] ([facility]) amLODIPine 2.5 mg oral tablet TAKE ONE TABLET DAILY, # 90 EA, 3 total refill(s ), Acute Complet ed 09/25/2023 90.0 Ambulat ory Pharmac y amLODIPine 2.5 mg tablet 2.5 mg, Oral, Daily, # 90 EA, 3 total refill(s ), Hard Stop Oral (given by mouth) Ordered 03/25/2025 90.0 Ambul at ory Pharmac y amLODIPine 5 mg tablet See Instruct ions, # 90 EA, 3 total refill(s ), Hard Stop Ordered 10/08/2024 90.0 Ambul at ory Pharmac y amLODIPine 5 mg tablet See Instruct ions, # 90 EA, 2 total refill(s ), Acute Complet ed 09/25/2023 90.0 Ambulat ory Pharmac y aspirin 81 mg oral delayed release tablet TAKE ONE TABLET DAILY, # 90 EA, 3 total refill(s ), Acute Complet ed 02/07/2023 90.0 Ambulat ory Pharmac y ASPIRIN EC (U/D) 81 MG ORAL TBEC Take with food/mil k.Swallo w whole. Active 10/09/2024 [id number] 4 [address] [place] [address] ([facility]) aspirin EC 81 mg tablet See Instruct ions, # 90 EA, 3 total refill(s ), Hard Stop Discont inued 03/25/2024 90.0 Ambulat ory Pharmac y aspirin EC 81 mg tablet See Instruct ions, # 90 EA, 2 total refill(s ), Acute Complet ed 09/25/2023 90.0 Ambulat ory Pharmac y aspirin EC 81 mg tablet 81 mg, Oral, Daily, # 90 EA, 3 total refill(s ), Hard Stop Oral (given by mouth) Ordered 03/25/2025 90.0 Ambul at ory Pharmac y atorvastati n 40 mg tablet 40 mg, Oral, Daily, # 90 EA, 3 total refill(s ), Hard Stop Oral (given by mouth) Discont inued 03/25/2024 90.0 Ambulat ory Pharmac y atorvastati n 40 mg tablet 40 mg, Oral, Daily, # 90 EA, 3 total refill(s ), Hard Stop Oral (given by mouth) Ordered 03/25/2025 90.0 Ambul at ory Pharmac y atorvastati n 40 mg tablet 40 mg, See Instruct ions, # 90 EA, 3 total refill(s ), Acute Complet ed 09/25/2023 90.0 Ambulat ory Pharmac y Brilinta 60 mg tablet 60 mg, Oral, BID, # 180 EA, 3 total refill(s ), Hard Stop Oral (given by mouth) Ordered 10/08/2024 180.0 Ambul at ory Pharmac y Brilinta 60 mg tablet See dose instruct ions in comments , # 180 EA, 2 total refill(s ), Acute Complet ed 09/25/2023 180.0 Ambulat ory Pharmac y buPROPion XL 300 mg/24 hour tablet 300 mg, Oral, every morning, # 90 EA, 0 total refill(s ), Hard Stop Oral (given by mouth) Discont inued 05/06/2024 90.0 Ambulat ory Pharmac y buPROPion XL 300 mg/24 hour tablet 300 mg, Oral, every morning, # 90 EA, 0 total refill(s ), Hard Stop Oral (given by mouth) Complet ed 08/05/2024 90.0 Ambulat ory Pharmac y buPROPion XL 300 mg/24 hour tablet 300 mg, Oral, # 90 EA, 0 total refill(s ), Hard Stop Oral (given by mouth) Ordered 11/07/2024 90.0 Ambul at ory Pharmac y CEPHALEXIN (CEPHALEXIN MONOHYDRATE ), 500MG, CAPSULE, ORAL, [employer] [facility], 500 ea. BOTTLE Active [id number] 4 2023 40 Pharmac y Data Transac tion Service Facilit y cholecalcif ngoc 125 mcg (5,000 units) capsule 125 mcg, Oral, Daily, # 90 EA, 3 total refill(s ), Hard Stop Oral (given by mouth) Ordered 03/25/2025 90.0 Ambul at ory Pharmac y cholecalcif ngoc 125 mcg (5,000 units) capsule 125 mcg, Oral, Daily, # 90 EA, 3 total refill(s ), Hard Stop Oral (given by mouth) Discont inued 03/25/2024 90.0 Ambulat ory Pharmac y docusate sodium 100 mg capsule 100 mg, Oral, BID, # 60 EA, 0 total refill(s ), Hard Stop Oral (given by mouth) Complet ed 02/29/2024 60.0 Ambulat ory Pharmac y docusate sodium 100 mg capsule 100 mg, Oral, BID, # 180 EA, 3 total refill(s ), Hard Stop Oral (given by mouth) Ordered 03/25/2025 180.0 Ambul at ory Pharmac y docusate sodium 100 mg capsule 100 mg, Oral, BID, # 180 EA, 3 total refill(s ), Hard Stop Oral (given by mouth) Discont inued 03/25/2024 180.0 Ambulat ory Pharmac y DOXYCYCLINE MONOHYDRATE (doxycyclin e monohydrate ), 100 MG, CAPSULE, ORAL, [facility], 50 ea. BOTTLE Active [id number] 2023 14 Pharmac y Data Transac tion Service Facilit y DOXYCYCLINE MONOHYDRATE (doxycyclin e monohydrate ), 100 MG, CAPSULE, ORAL, ZYDUS PHARMACEU, 50 ea. BOTTLE Active [id number] 2023 14 Pharmac y Data Transac tion Service Facilit y fenofibrate 160 mg tablet See dose instruct ions in comments , # 90 EA, 2 total refill(s ), Acute Complet ed 08/23/2023 90.0 Ambulat ory Pharmac y fenofibrate 160 mg tablet 160 mg, Oral, Daily, # 90 EA, 3 total refill(s ), Hard Stop Oral (given by mouth) Ordered 03/25/2025 90.0 Ambul at ory Pharmac y ferrous sulfate 325 mg tablet 325 mg, Oral, Daily, # 90 EA, 3 total refill(s ), Hard Stop Oral (given by mouth) Complet ed 03/15/2024 90.0 Ambulat ory Pharmac y ferrous sulfate 325 mg tablet 325 mg, Oral, Daily, # 90 EA, 3 total refill(s ), Hard Stop Oral (given by mouth) Ordered 03/25/2025 90.0 Ambul at ory Pharmac y fexofenadin e 180 mg tablet 180 mg, Oral, # 90 EA, 3 total refill(s ), Hard Stop Oral (given by mouth) Complet ed 02/29/2024 90.0 Ambulat ory Pharmac y fexofenadin e 180 mg tablet 180 mg, Oral, Daily, # 90 EA, 3 total refill(s ), Hard Stop Oral (given by mouth) Ordered 03/25/2025 90.0 Ambul at ory Pharmac y fluticasone 50 mcg/inh nasal spray [16g] See Instruct ions, # 48 g, 3 total refill(s ), Hard Stop Ordered 03/25/2025 48.0 Ambul at ory Pharmac y Freestyle [place] Lite Monitor See Instruct ions, # 1 EA, 0 total refill(s ), Hard Stop Complet ed 09/18/2024 1.0 Ambulat ory Pharmac y freestyle lite (glucose) test strip [50EA] See Instruct ions, # 100 EA, 3 total refill(s ), Hard Stop Complet ed 09/18/2024 100.0 Ambulat ory Pharmac y KETOCONAZOL E (ketoconazo le), 2 %, CREAM (G), TOPICAL, [employer] [facility], 60 g TUBE Active [id number] 3 2023 60 Pharmac y Data Transac tion Service Facilit y lamoTRIgine 100 MG ORAL TAB May cause drowsine ss.Avoid exposure to sun.Take or use exactly as directed . Active 01/03/2025 [id number] 4 [address] [place] [address]) lamoTRIgine 100 MG ORAL TAB May cause drowsine ss.Avoid exposure to sun.Take or use exactly as directed . Active 10/04/2024 [id number] 4 [address] [place] [address]) lamoTRIgine 100 MG ORAL TAB May cause drowsine ss.Avoid exposure to sun.Take or use exactly as directed . 07/05/2024 [id number] 3 [address] [place] [address]) lamoTRIgine [AvKare] 100 mg tablet 100 mg, Oral, every morning, # 90 EA, 0 total refill(s ), Hard Stop Oral (given by mouth) Discont inued 05/06/2024 90.0 Ambulat ory Pharmac y lamoTRIgine [AvKare] 100 mg tablet 100 mg, Oral, Daily, # 90 EA, 0 total refill(s ), Hard Stop Oral (given by mouth) Complet ed 08/05/2024 90.0 Ambulat ory Pharmac y lamoTRIgine [AvKare] 100 mg tablet 100 mg, Oral, # 90 EA, 0 total refill(s ), Hard Stop Oral (given by mouth) Ordered 11/07/2024 90.0 Ambul at ory Pharmac y lidocaine 5% ointment [35.44g] = 1 appl(s), Topical, Daily, # 35 g, 3 total refill(s ), Hard Stop Topica l (on the skin) Ordered 03/25/2025 35.44 Ambul at ory Pharmac y linaCLOtide 290 MCG ORAL CAP Take on empty stomach. Obtain advice for OTCs.Katerina steward.Ch radha with your doctor before becoming .Do not chew or crush.Ta ke this medicine 30 minutes before a meal. 09/18/2024 [id number] 4 2023 90 [employer] [place] ([facility]) Linzess 290 mcg capsule See dose instruct ions in comments , # 90 EA, 2 total refill(s ), Acute Complet ed 08/23/2023 90.0 Ambulat ory Pharmac y Linzess 290 mcg capsule 290 mcg, Oral, Daily, # 90 EA, 3 total refill(s ), Hard Stop Oral (given by mouth) Ordered 03/25/2025 90.0 Ambul at ory Pharmac y Linzess 290 mcg capsule 290 mcg, Oral, Daily, # 90 EA, 3 total refill(s ), Hard Stop Oral (given by mouth) Discont inued 03/25/2024 90.0 Ambulat ory Pharmac y lisinopril 20 mg tablet See dose instruct ions in comments , # 90 EA, 2 total refill(s ), Acute Complet ed 08/23/2023 90.0 Ambulat ory Pharmac y lisinopril 30 mg tablet See Instruct ions, Oral, # 90 EA, 3 total refill(s ), Hard Stop Oral (given by mouth) Complet ed 03/15/2024 90.0 Ambulat ory Pharmac y lisinopril 30 mg tablet 30 mg, Oral, Daily, # 90 EA, 3 total refill(s ), Hard Stop Oral (given by mouth) Ordered 03/25/2025 90.0 Ambul at ory Pharmac y meclizine 25 mg chew tablet See Instruct ions, # 90 EA, 3 total refill(s ), Hard Stop Ordered 03/25/2025 90.0 Ambul at ory Pharmac y meclizine 25 mg oral tablet, chewable *NOTE DOSE* TAKE ONE-HALF TABLET BY MOUTH TWICE A DAY NEEDED FOR MOTION SICKNESS , # 90 EA, 2 total refill(s ), Acute Complet ed 08/23/2023 90.0 Ambulat ory Pharmac y metFORMIN 500 mg tablet 500 mg, Oral, BID, # 180 EA, 3 total refill(s ), Hard Stop Oral (given by mouth) Complet ed 02/29/2024 180.0 Ambulat ory Pharmac y metFORMIN 500 mg tablet 500 mg, Oral, TID, # 270 EA, 3 total refill(s ), Hard Stop Oral (given by mouth) Ordered 03/25/2025 270.0 Ambul at ory Pharmac y Metoprolol Tartrate (Lopressor) Tablet 25 mg Oral Be careful if taking OTCs.Ankush e with food/mil k.Take or use exactly as directed .May impair driving. May cause drowsine ss/dizzi ness. Active 10/09/2024 [id number] 4 2023 180 [employer] [place] ([facility]) metoprolol tartrate 25 mg tablet See Instruct ions, # 180 EA, 2 total refill(s ), Acute Complet ed 09/25/2023 180.0 Ambulat ory Pharmac y metoprolol tartrate 25 mg tablet See Instruct ions, # 180 EA, 3 total refill(s ), Hard Stop Ordered 10/09/2024 180.0 Ambul at ory Pharmac y MUPIROCIN (MUPIROCIN) , 2%, OINT.(GM), TOPICAL, [employer], 22 g TUBE Cancele d [id number] : 2023 0 Pharmac y Data Transac tion Service Facilit y Narcan 4 mg/0.1 mL nasal spray [2EA] See Instruct ions, # 2 EA, 0 total refill(s ), Hard Stop Ordered 12/19/2024 2.0 Ambul at ory Pharmac y OLANZapine (U/D) 2.5 MG ORAL TAB May cause drowsine ss.Take or use exactly as directed .Obtain advice for OTCs. Active 01/03/2025 [id number] 4 [address] [place] [address]) OLANZapine (U/D) 2.5 MG ORAL TAB May cause drowsine ss.Take or use exactly as directed .Obtain advice for OTCs. Active 10/04/2024 [id number] 4 [address] [place] [address]) OLANZapine (U/D) 2.5 MG ORAL TAB May cause drowsine ss.Take or use exactly as directed .Obtain advice for OTCs. 07/05/2024 [id number] 3 [address] [place] [address]) OLANZapine 2.5 mg tablet 2.5 mg, Oral, BID, # 180 EA, 0 total refill(s ), Hard Stop Oral (given by mouth) Discont inued 05/06/2024 180.0 Ambulat ory Pharmac y OLANZapine 2.5 mg tablet 2.5 mg, Oral, every day at bedtime, # 90 EA, 0 total refill(s ), Hard Stop Oral (given by mouth) Complet ed 08/05/2024 90.0 Ambulat ory Pharmac y OLANZapine 2.5 mg tablet 2.5 mg, Oral, # 90 EA, 0 total refill(s ), Hard Stop Oral (given by mouth) Ordered 11/07/2024 90.0 Ambul at ory Pharmac y ondansetron 8 mg tablet See dose instruct ions in comments , # 30 EA, 4 total refill(s ), Acute Complet ed 08/23/2023 30.0 Ambulat ory Pharmac y ondansetron 8 mg tablet 8 mg, Oral, every 12 hr, # 30 EA, 5 total refill(s ), Hard Stop Oral (given by mouth) Ordered 03/25/2025 30.0 Ambul at ory Pharmac y pantoprazol e EC 40 mg tablet See dose instruct ions in comments , # 90 EA, 2 total refill(s ), Acute Complet ed 08/23/2023 90.0 Ambulat ory Pharmac y pantoprazol e EC 40 mg tablet 40 mg, Oral, # 90 EA, 3 total refill(s ), Hard Stop Oral (given by mouth) Ordered 03/25/2025 90.0 Ambul at ory Pharmac y polyethylen e glycol 3350 oral powder for reconstitut ion MIX 1 CAPFUL (17 GRAMS) IN LIQUID AND DRINK EVERY DAY DIRECTED , # 714 g, 2 total refill(s ), Acute Complet ed 08/23/2023 714.0 Ambulat ory Pharmac y polyethylen e glycol 3350 suspension [238g] See Instruct ions, # 714 g, 3 total refill(s ), Hard Stop Ordered 03/25/2025 714.0 Ambul at ory Pharmac y polyethylen e glycol 3350 suspension [238g] See Instruct ions, 0, # 714 g, 3 total refill(s ), Hard Stop Complet ed 03/15/2024 714.0 Ambulat ory Pharmac y rOPINIRole 1 mg tablet See dose instruct ions in comments , # 180 EA, 2 total refill(s ), Acute Complet ed 08/23/2023 180.0 Ambulat ory Pharmac y rOPINIRole 1 mg tablet 1 mg, Oral, BID, # 180 EA, 3 total refill(s ), Hard Stop Oral (given by mouth) Ordered 03/25/2025 180.0 Ambul at ory Pharmac y TICAGRELOR 60 MG ORAL TAB Take or use exactly as directed .Obtain advice for OTCs. Active 10/08/2024 [id number] 4 2023 180 [facility] [employer] ([facility]) valACYclovi r 1 g tablet See Instruct ions, # 90 EA, 3 total refill(s ), Acute Complet ed 11/09/2023 90.0 Ambulat ory Pharmac y valACYclovi r 1 g tablet See Instruct ions, Oral, # 90 EA, 3 total refill(s ), Hard Stop Oral (given by mouth) Ordered 03/25/2025 90.0 Ambul at ory Pharmac y valACYclovi r 1 g tablet See Instruct ions, Oral, 0, # 90 EA, 3 total refill(s ), Hard Stop Oral (given by mouth) Discont inued 03/25/2024 90.0 Ambulat ory Pharmac y Allergies, Adverse Reactions, Alerts Combined list of allergies from Department of Defense and Veterans Affairs facilities. It does not include entries that were removed or entered in error. Substance Category Reaction Severity Reaction type Status Date Reported Comments Source ANALGESIC(OP IOD) [facility] Drug allergy (disorder) Other: VERY HIGH BP active 1 [facility] CLINDAMYCIN Drug allergy (disorder) active 8 [facility] [place] [address] clindamycin Propensity to adverse reactions to drug Active Reaction(s) : [facility] COMPAZINE Propensity to adverse reactions to drug (finding) active 1 [facility] MEPERIDINE Propensity to adverse reactions to drug (finding) VERY HIGH BP active [address] [facility] meperidine Drug allergy Headache Mild Active [facility] Pharm[facility] MEPERIDINE HCL/ACETAMIN OPHEN Drug allergy (disorder) active [facility] [place] [address] MORPHINE Drug allergy (disorder) active [facility] [place] [address] morphine Propensity to adverse reactions to drug Active Reaction(s) : Hallucinati on, Other Reaction, Other: Pt says she Passes Out ; Note: PER PATIENT (SEP 24) [facility] Pharmacy narcotic analgesics Propensity to adverse reactions to drug Active 1 [facility] PROCHLORPERA ZINE MALEATE Drug allergy (disorder) active [facility] [place] [address] prochlorpera zine Propensity to adverse reactions to drug Active Reaction(s) : Other Reaction, Other: Nervousness ; Note: Pt stated she has Uncontrolle d emotions, pt also said one of her said she Bottomed Out
May ction(s): Other Reaction, Other: Nervousness ; Note: Pt stated she has Uncontrolle d emotions, pt also said one of her said she Bottomed Out [facility] Pharmacy Immunizations Combined list of available immunizations from the Department of Defense and Veterans Affairs facilities. 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 Comments Source influenza, high-dose seasonal, quad, pf 2020 197 sanofi pasteur complet ed influenza , high-dose seasonal, quad, pf 04/27/21 Given Ambulat ory Pharmac y influenza, high-dose, quadrivalent 2020 RICH, () Not Given influenza , high-dose , quadrival ent DoD influenza, seasonal,high dose-pf 2014 135 sanofi pasteur complet ed influenza , seasonal, high dose-pf 05/29/15 Given [facility] Pharmac [facility], [facility], [id number] sanofi pasteur complet ed influenza , seasonal, injectabl e 05/21/12 Given Ambulat ory Pharmac y pneumococcal polysaccharid e, 23 [facility] [id number] Merck [employer] Company Inc complet ed pneumococ diamond polysacch aride, 23 valent 05/21/12 Given Ambulat ory Pharmac y influenza, seasonal, injectable 2011 [id number] sanofi pasteur complet ed influenza , seasonal, injectabl e 05/21/12 Given Ambulat ory Pharmac y pneumococcal polysaccharid e, 23 valent 2011 [id number] [employer] complet ed pneumococ diamond polysacch aride, 23 valent 05/21/12 Given Ambulat ory Pharmac y pneumococcal polysaccharid e vaccine, 23 valent 1 2011 Unknown, Provider [id number] 33 Merck (MSD) complet ed pneumococ diamond polysacch aride vaccine, 23 valent DoD Influenza, seasonal, injectable 1 2011 Unknown, Provider [id number] 141 Sanofi Pasteur ([facility]) complet ed Influenza , seasonal, injectabl e DoD zoster vaccine live 2011 zzRig Arm [id number] 121 Merck [employer] Inc complet ed zoster vaccine live 04/24/12 Given Ambulat ory Pharmac y zoster vaccine live 2011 [id number] [employer]ck [employer] Inc complet ed zoster vaccine live 04/24/12 Given Ambulat ory Pharmac y zoster vaccine, live 1 2011 Unknown, Provider [id number] Merck (MSD) complet ed zoster vaccine, live DoD influenza, seasonal, injectable 2010 141 Novartis Pharm[employer]ica complet ed influenza , seasonal, injectabl e 06/01/11 Given Ambulat ory Pharmac y tuberculin purified protein derivative 2009 zzLef t Arm [id number] 96 sanofi pasteur complet ed Patient Tolerance : Negative Ambulat ory Pharmac y tuberculin purified protein derivative 2009 [id number] 96 sanofi pasteur complet ed tuberculi n purified protein derivativ e 12/21/09 Given Ambulat ory Pharmac y tuberculin skin test; purified protein derivative solution, intradermal 1 2009 Unknown, Provider [id number] 96 Sanofi Pasteur ([facility]) complet ed tuberculi n skin test; purified protein derivativ e solution, intraderm al DoD influenza virus vaccine, whole virus 2007 16 complet ed influenza virus vaccine, whole virus 05/21/08 Given Ambulat ory Pharmac y influenza virus vaccine,split 2007 15 complet ed influenza virus vaccine,s plit 05/21/08 Given Ambulat ory Pharmac y influenza virus vaccine, whole virus 2007 16 complet ed influenza virus vaccine, whole virus 05/21/08 Given Ambulat ory Pharmac y influenza virus vaccine,split 2007 15 complet ed influenza virus vaccine,s plit 05/21/08 Given Ambulat ory Pharmac y influenza virus vaccine, split virus (incl. purified surface antigen)-reti red CODE 1 2007 Unknown, Provider 15 Transcribed (TRS) complet ed influenza virus vaccine, split virus (incl. purified surface antigen)- retired CODE DoD influenza virus vaccine, whole virus 1 2007 Unknown, Provider 16 Transcribed (TRS) complet ed influenza virus vaccine, whole virus DoD tetanus, diphtheria, acellular pertu is 2007 zzLef t Arm [id number] 115 sanofi pasteur complet ed tetanus, diphtheri a, acellular pertussis 05/20/08 Given Ambulat ory Pharmac y tetanus, diphtheria, acellular pertu is 2007 [id number] 115 sanofi pasteur complet ed tetanus, diphtheri a, acellular pertussis 05/20/08 Given Ambulat ory Pharmac y tetanus toxoid, reduced diphtheria toxoid, and acellular pertu is vaccine, adsorbed 1 2007 Unknown, Provider [id number] 115 Sanofi Pasteur ([facility]) complet ed tetanus toxoid, reduced diphtheri a toxoid, and acellular pertussis vaccine, adsorbed DoD Encounters Combined list of: 1) Encounters from Department of Veterans Affairs facilities going backup to the last 18 months, not all VA inpatient encounters are included; 2) Encounters from the Department of Defense facilities going backup to 280 months. Location Location Details Encounter Type Encounter Number Reason For Visit Attending Provider ADM Date DC Date Status Disposition Source [employer] DIRECT TO [facility] FROM OTHER THAN ER OR [facility] [id number] DAMIEN BARRON 11/12 DISCHARGED HOME [employer] DIRECT TO [facility] FROM OTHER THAN ER OR [facility] [id number] CIELO STEINBERG 03/15 DISCHARGED HOME [employer]([facility] C Gynecolog y) OUTPATIENT [id number] ZORAIDA LARIOS 06/14 Released w/o Limitations [employer]([facility] Gynecol ogy) [employer] ER, DIRECT TO MTF [id number] RAMON HURT 07/10 DISCHARGED HOME [employer]([facility] C Optometry ) OUTPATIENT [id number] eye exam-bunny witt is diabeti c TOMER SUAREZ 02/01 Released w/o Limitations [employer]([facility] Optomet ry) [employer]([facility] C Optometry ) OUTPATIENT [id number] pupil ck TOMER SUAREZ 05/23 Released w/o Limitations [employer]([facility] Optomet ry) [employer] [facility] ) OUTPATIENT [id number] EKG pre-op KASH BISHOP 04/24 Released w/o Limitations [employer]([facility] [place]) [employer]([facility] ) OUTPATIENT [id number] f/u on ff surgery and med refill and blood test KASH BISHOP 07/27 Released w/o Limitations [employer] [employer] [facility] ) OUTPATIENT [id number] f/u for er visit ROSELYN WASHINGTON KASH 08/27 Released w/o Limitations [employer]([facility], [facility]) [employer]([facility] ) OUTPATIENT [id number] fol up lab test GIGI TRAN 09/28 Released w/o Limitations [employer]([facility], [facility]) [employer]([facility] ) OUTPATIENT [id number] f/u GIGI TRAN 10/04 Released w/o Limitations [employer]([facility]) [employer]([facility] ) OUTPATIENT [id number] pap GIGI TRAN 10/25 Released w/o Limitations [employer]([facility], [facility]) [employer]([facility] ) OUTPATIENT [id number] mole shave, side of left breast. KASH BISHOP 11/12 Released w/o Limitations [employer]([facility]) [employer]([facility] ) OUTPATIENT [id number] mole removal KASH BISHOP 11/26 Released w/o Limitations [employer]([facility]) [employer]([facility] ) OUTPATIENT [id number] mole removal KASH BISHOP 12/03 Released w/o Limitations [employer]([facility]) [employer]([facility] ) OUTPATIENT [id number] fol up mole KASH BISHOP 01/29 Released w/o Limitations [employer]([facility]) [employer]([facility] ) OUTPATIENT [id number] REFERRA FOR HAND I BLOCKER KASH BISHOP 02/10 Released w/o Limitations [employer]([facility]) [employer]([facility] Gastroent erology) TELE CONSULT [id number] f/u appt request ed GIA SOSA Y 03/11 [employer]([facility] Gastroe nterolo gy) [employer]([facility] C Gastroent erology) OUTPATIENT [id number] GIA SOSA Y 03/14 Released w/o Limitations [employer]([facility] Gastroe nterolo gy) [employer]([facility] Gastroent erology) OUTPATIENT [id number] est GIA SOSA Y 05/01 Released w/o Limitations [employer]([facility] Gastroe nterolo gy) [employer]([facility] ) OUTPATIENT [id number] Medicat ion change not working , need refills GIGI TRAN 05/20 Released w/o Limitations [employer]([facility], [facility]) [employer]([facility] Gastroent erology) TELE CONSULT [id number] procedu re results GIA SOSA Y 06/16 [employer]([facility] Gastroe nterolo gy) [employer]([facility] ) OUTPATIENT [id number] RASH ON ARMS GIGI TRAN 06/27 Released w/o Limitations [employer]([facility], [facility]) [employer]([facility] ) OUTPATIENT [id number] f/u inf. GIGI TRAN 07/23 Released w/o Limitations [employer]([facility], [facility]) [employer]([facility] ) OUTPATIENT [id number] f/u GIGI TRAN 07/31 Released w/o Limitations [employer]([facility], [facility]) [employer]([facility] ) OUTPATIENT [id number] VAGINAL EXAM / NO PAP (HYSTER ECTOMY 1980) GIGI TRAN 08/26 Released w/o Limitations [employer]([facility], [facility]) [employer]([facility] Otorhinol aryngolog y) OUTPATIENT [id number] fx nasal bones, distal 1/3 CARLOS GREY Aurelio 09/15 Released w/o Limitations [employer]([facility] Otorhin olaryng ology) [employer]([facility] ) OUTPATIENT [id number] bladder infecti on KRISTIN LEMOS 10/03 Released w/o Limitations [employer]([facility] te [facility], [facility]) [employer]([facility] ) OUTPATIENT [id number] urinary problem s KASH BISHOP 10/13 Released w/o Limitations [employer]([facility] te [facility], [facility]) [employer]([facility] Otorhinol aryngolog y) OUTPATIENT [id number] f/u LIBAN RENO 10/27 Released w/o Limitations [employer]([facility] Otorhin olaryng ology) [employer]([facility] Gynecolog y) OUTPATIENT [id number] CYSTOCE VIRGINIE JENNINGS 11/03 Released w/o Limitations [employer]([facility] Gynecol ogy) [employer] [facility] Urology Clinic) OUTPATIENT [id number] resched ROSA Mcintyre 01/13 Released w/o Limitations [employer]([facility] Urology Clinic) [employer]([facility] ) OUTPATIENT [id number] PT having pain in uterus. Bleedin g every so often. DERIK OMALLEY 01/30 Released w/o Limitations [employer]([facility], [facility]) [employer]([facility] Urology Clinic) OUTPATIENT [id number] CYSTO/U ROSA INIGUEZ 02/13 Released w/o Limitations [employer]([facility] Urology Clinic) [employer]([facility] Urology Clinic) TELE CONSULT [id number] Wants to know if you reviewe d the CT from outside provide ROSA Horner 03/16 [employer]([facility] Urology Clinic) [employer]([facility] ) OUTPATIENT [id number] f/u [facility] 03/18 Released w/o Limitations [employer]([facility], [facility]) [employer]([facility] ) OUTPATIENT [id number] kidney prob. [facility] 04/21 Released w/o Limitations [employer]([facility]) [employer]([facility] Urology [facility]) TELE CONSULT [id number] mri results ROSA ROBERTO 04/23 [employer]([facility] Urology [facility]) [employer]([facility] ) OUTPATIENT [id number] f/u urine infecti on [facility] 05/05 Released w/o Limitations [employer]([facility], [facility]) [employer]([facility] ) OUTPATIENT [id number] c/u lower abd pain/ba ck pain VIRGINIE CHIRSTIAN 05/19 Released w/o Limitations [employer]([facility]) [employer]([facility] ) OUTPATIENT [id number] Medicat ion follow- up VIRGINIE CHRISTIAN 06/02 Released w/o Limitations [employer]([facility], [facility]) [employer]([facility] Dental [facility]) DENTAL [id number] denture adj/man d impress ions for implant JEFFERY MICHAELS 06/10 Released w/o Limitations [employer]([facility] Dental Clinic) [employer] [facility] ) OUTPATIENT [id number] bad headach es VIRGINIE CHRISTIAN 06/17 Released w/o Limitations [employer]([facility]) [employer] [facility] ) TELE CONSULT [id number] MED REFVIRGINIE TRIPP 06/30 [employer]([facility]) [employer]([facility] ) OUTPATIENT [id number] f/u for VIRGINIE Rangel 07/22 Released w/o Limitations [employer]([facility]) [employer]([facility] Urology Clinic) OUTPATIENT [id number] f/u detrol not working ROSA ROBERTO Elissa 09/23 Released w/o Limitations [employer]([facility] Urology Clinic) [employer]([facility] Urology Clinic) OUTPATIENT [id number] pre-op LIDAROSA MULLEN 10/22 Released w/o Limitations [employer]([facility] Urology Clinic) [employer]([facility] ) OUTPATIENT [id number] follow up for lab results DERIK OMALLEY 10/26 Released w/o Limitations [employer]([facility]) [employer] DIRECT TO [facility] FROM OTHER THAN ER OR [facility] [id number] LIDAROSA MULLEN 11/10 DISCHARGED HOME [employer]([facility] Urology Clinic) OUTPATIENT [id number] post-op JANELL ZAMORA 11/16 Released w/o Limitations [employer]([facility] Urology Clinic) [employer]([facility] Urology Clinic) OUTPATIENT [id number] f/u surgery ROSA ROBERTO Elissa 11/26 Released w/o Limitations [employer]([facility] Urology Clinic) [employer]([facility] ) OUTPATIENT [id number] f/u after surgery DERIK OMALLEY 12/21 Released w/o Limitations [employer]([facility] an) [employer]([facility] ) TELE CONSULT [id number] DM/HLP follow- up DERIK OMALLEY 01/05 [employer]([facility], [facility]) [employer]([facility] ) OUTPATIENT [id number] f/u bloodwo VIRGINIE Mello 01/05 Released w/o Limitations [employer]([facility], [facility]) [employer]([facility] Neurology ) OUTPATIENT [id number] DIABETE S MELLITU S DIABETI C PERIPHE RAL NEUROPA THY LEONA MAHONEY 02/02 Released w/o Limitations [employer]([facility] Neurolo gy) [employer]([facility] Primary [facility]) OUTPATIENT [id number] F/U DM VIRGINIE CHRISTIAN 02/09 Released w/o Limitations [employer]([facility]) [employer]([facility] Neurology ) OUTPATIENT [id number] NCV with LEONA Gomes 03/09 Released w/o Limitations [employer]([facility] Neurolo gy) [employer]([facility] Urology Clinic) OUTPATIENT [id number] f/u ROSA ROBERTO 03/25 Released w/o Limitations [employer]([facility] Urology Clinic) [employer]([facility] Neurology ) OUTPATIENT [id number] f/u LEONA MAHONEY 04/05 Released w/o Limitations [employer]([facility] Neurolo gy) [employer]([facility] Primary [facility]) OUTPATIENT [id number] follow up for stomach trouble VIRGINIE Wisdom 06/18 Released w/o Limitations [employer]([facility]) [employer]([facility] Neurology ) OUTPATIENT [id number] f/u LEONA MAHONEY 07/22 Released w/o Limitations [employer]([facility] Neurolo gy) [employer]([facility] Internal Medicine) OUTPATIENT [id number] f/u labwork VIRGINIE CHRISTIAN 08/17 Released w/o Limitations [employer]([facility] Intern[facility] Medicin e) [employer]([facility] ) TELE CONSULT [id number] VIRGINIE CHRISTIAN 10/05 [employer]([facility]) [employer]([facility] Internal Medicine) OUTPATIENT [id number] pt needs meds for motion and seasick ness VIRGINIE CHRISTIAN 11/09 Released w/o Limitations [employer]([facility] Intern[facility] Medicin [facility]) [employer]([facility] Neurology ) OUTPATIENT [id number] f/u LEONA MAHONEY 11/18 Released w/o Limitations [employer]([facility] Neurolo gy) [facility] ) TELE CONSULT [id number] DIABETI C FOLLOW UP TARA ACOSTA 12/28 Referred for Appointment [employer]([facility], [facility]) [employer]([facility] Internal Medicine) OUTPATIENT [id number] stomach irregul ROSELYN Lawrence 01/20 Released w/o Limitations [employer]([facility] Intern[facility] l Medicin e) [employer]([facility] Orthopedi c Appliance ) OUTPATIENT [id number] carpal tunnel syndrom e KAUR RODRÍGUEZ 01/24 Released w/o Limitations [employer]([facility] Orthope dic Applian ce) [facility] Urology Clinic) OUTPATIENT [id number] f/u; s/p cystoce le/rect ocele repair last year; ROSA Graves 03/03 Released w/o Limitations [employer]([facility] Urology Clinic) [employer]([facility] Internal Medicine) OUTPATIENT [id number] F/U ROSELYN Case 03/16 Released w/o Limitations [employer]([facility] Interna l Medicin e) [address] [place] [address]([facility] ) TELE CONSULT [id number] Network results for Optomet ry in clinica l notes outpati ent report ROSELYN SOSA 03/31 [employer]([facility]) [employer]([facility] Internal Medicine) OUTPATIENT [id number] discuss test ROSELYN SOSA 05/20 Released w/o Limitations [employer]([facility] Interna l Medicin e) [employer]([facility] Internal Medicine) OUTPATIENT [id number] lump on breast ROSELYN SOSA 07/21 Released w/o Limitations [employer]([facility] Interna l Medicin e) [employer]([facility] ) TELE CONSULT [id number] MED REFILL ROSELYN SOSA 08/25 [employer]([facility]) [employer]([facility] Neurology ) OUTPATIENT [id number] f/u RLS LEONA MAHONEY 08/29 Released w/o Limitations [employer]([facility] Neurolo gy) [employer]([facility] ) TELE CONSULT [id number] Notes Entered by: DIANA MEI 15 Nov 2011 1503 ------- ------- ------- ------- -- Med Refill ROSELYN SOSA 11/14 [employer]([facility]) 60 [employer]([facility]) OUTPATIENT [id number] PRE-OP FOR KNEE SURGERY NEEDS ROSELYN JEROME 12/11 Released w/o Limitations [employer]([facility]) [employer]([facility]) OUTPATIENT [id number] f/u for med refill for hi-bp RADHA MCNULTY 01/31 Released w/o Limitations [employer]([facility]) [employer]([facility]) OUTPATIENT [id number] LAZARUS MITCHELL 02/09 Released w/o Limitations [employer]([facility]) [employer]([facility]) OUTPATIENT [id number] f/u for vomitin g and HARMONY Boyle 03/22 Released w/o Limitations [employer]([facility]) [employer]([facility]) OUTPATIENT [id number] f/u HARMONY MARIO 03/30 Released w/o Limitations [employer]([facility]) [employer]([facility]) OUTPATIENT [id number] Notes Entered by: RADHAMERLINE VERNON 09 Apr 2012 1057 ------- ------- ------- ------- -- Vitamin b12 injecti on MERLINE GARCIA VERNON 04/09 Released w/o Limitations [employer]( [facility]) [employer]([facility] ) OUTPATIENT [id number] Notes Entered by: RENA GRIGGS 17 Apr 2012 1039 ------- ------- ------- ------- -- B12 Injecti on/defi ciency NEHA GRIGGS 04/17 Released w/o Limitations [employer]([facility]) [facility] [employer]([facility]) OUTPATIENT [id number] Stomach pain + bloodwo rk result follow- up REMY WATERS 04/24 Released w/o Limitations [employer]( [facility]) [facility] Medical [facility] Urology [facility]) OUTPATIENT [id number] f/u BOB Lunsford 04/25 Released w/o Limitations [employer]([facility]) [address] [place] [address]([facility] ) OUTPATIENT [id number] Notes Entered by: TU DAWSON 23 May 2012 0803 ------- ------- ------- ------- -- B-12 injecti on TU DAWSON 05/23 Released w/o Limitations [employer]([facility]) [address] [place] [address]([facility] ) TELE CONSULT [id number] Notes Entered by: DESTINI COLEMAN 23 May 2012 0933 ------- ------- ------- ------- -- Diabeti c SADAF Dhillon 05/23 Referred for Appointment [employer]([facility]) [employer]([facility] Neurology ) TELE CONSULT [id number] Notes Entered by: RIAZ PRABHAKAR 24 May 2012 0922 ------- ------- ------- ------- -- Rx refill for Requip. (cell) LEONA MAHONEY 05/24 [employer]([facility] Neurolo gy) [employer]([facility] ) OUTPATIENT [id number] Notes Entered by: TU DAWSON 24 May 2012 1443 ------- ------- ------- ------- -- B-12 Injecti on TU DAWSON 05/24 Released w/o Limitations [employer]([facility]) [employer]([facility]) OUTPATIENT [id number] callus HARMONY Dunn 05/31 Released w/o Limitations [employer]([facility]) [employer]([facility] OUTPATIENT [id number] Notes Entered by: TU DAWSON 26 Jun 2012 0834 ------- ------- ------- ------- -- B-12 injecti on and F/U for GI issues TU DAWSON 06/26 Released w/o Limitations [employer]([facility]) [employer]([facility]) OUTPATIENT [id number] Notes Entered by: VICTOR MANUEL TILLMAN 23 Jul 2012 1149 ------- ------- ------- ------- -- B-12 Injecti on HARMONY MARIO 07/23 Released w/o Limitations [employer]([facility]) [employer]([facility]) OUTPATIENT [id number] Notes Entered by: OLIVER LERMA 27 Aug 2012 0816 ------- ------- ------- ------- -- B12 Inj OLIVER LERMA 08/27 Released w/o Limitations [employer]([facility]) [employer]([facility]) OUTPATIENT [id number] Notes Entered by: COLEMANDESTINI 24 Sep 2012 0951 ------- ------- ------- ------- -- B-12 Injecti on HARMONY MARIO 09/24 Released w/o Limitations [employer]([facility]) [employer]([facility] ) OUTPATIENT [id number] Notes Entered by: RENA GRIGGS 17 Oct 2012 0944 ------- ------- ------- ------- -- B12 Cyanoco balamin e injecti on JARED SADAF Bowers 10/17 Released w/o Limitations [employer]([facility]) [facility] [employer]([facility]) OUTPATIENT [id number] Follow up for med refills ;NASREEN Espinoza 11/23 Released w/o Limitations [employer]([facility]) [address] [place] [address]([facility] ) TELE CONSULT [id number] Notes Entered by: DIANA MEI 04 Dec 2012 1115 ------- ------- ------- ------- -- Med Refills NASREEN MELGAR 12/04 [facility] Medical [facility] [employer]([facility] ) TELE CONSULT [id number] Notes Entered by: DIANA MEI 07 Dec 2012 1037 ------- ------- ------- ------- -- Med Refill HW NASREEN MELGAR 12/07 [employer]([facility]) [employer]([facility] TELE CONSULT [id number] Notes Entered by: TU DAWSON 31 Jan 2013 1055 ------- ------- ------- ------- -- Network results - CT sinus NASREEN MELGAR 01/31 [employer]([facility]) [employer]([facility] Neurology ) OUTPATIENT [id number] f/u meds LEONA MAHONEY 03/22 Released w/o Limitations [employer]([facility] Neurolo gy) [employer]([facility]) OUTPATIENT [id number] needs paperwo KYLE Tapia 04/25 Released w/o Limitations [facility] [employer]([facility]) Procedures Combined list of: 1) Procedures from Department of Veterans Affairs facilities going back up to thelast 18 months, not all VA non-surgical procedures are included; 2) All procedures from the Department of Defense facilities. Procedure Procedure Type Code Date [facility] e INJECTION, VITAMIN B-12 CYANOCOBALAMIN, UP TO 1000 MCG 04/25/2013 DoD INJECTION, VITAMIN B-12 CYANOCOBALAMIN, UP TO 1000 MCG 11/23/2012 DoD CYANOCOBALAMIN (VITAMIN B-12); 10/17/2012 DoD THERAPEUTIC, PROPHYLACTIC, OR DIAGNOSTIC INJECTION (SPECIFY SUBSTANCE OR DRUG); SUBCUTANEOUS OR INTRAMUSCULAR 09/24/2012 DoD THERAPEUTIC, PROPHYLACTIC, OR DIAGNOSTIC INJECTION (SPECIFY SUBSTANCE OR DRUG); SUBCUTANEOUS OR INTRAMUSCULAR 08/27/2012 DoD THERAPEUTIC, PROPHYLACTIC, OR DIAGNOSTIC INJECTION (SPECIFY SUBSTANCE OR DRUG); SUBCUTANEOUS OR INTRAMUSCULAR 07/23/2012 DoD ZOSTER (SHINGLES) VACCINE (HZV), LIVE, FOR SUBCUTANEOUS INJECTION 04/24/2012 DoD CYANOCOBALAMIN (VITAMIN B-12); 04/17/2012 DoD INJECTION, VITAMIN B-12 CYANOCOBALAMIN, UP TO 1000 MCG 04/09/2012 DoD THERAPEUTIC, PROPHYLACTIC, OR DIAGNOSTIC INJECTION (SPECIFY SUBSTANCE OR DRUG); SUBCUTANEOUS OR INTRAMUSCULAR 04/02/2012 DoD MEASUREMENT OF POST-VOIDING RESIDUAL URINE AND/OR BLADDER CAPACITY BY ULTRASOUND, NON-IMAGING 03/03/2011 DoD WRIST HAND ORTHOSIS, WRIST EXTENSION CONTROL COCK-UP, NON MOLDED, PREFABRICATED, [id number] 01/24/2011 DoD INFUSION, NORMAL SALINE SOLUTION , 1000 CC 06/11/2010 DoD NERVE CONDUCTION, AMPLITUDE AND LATENCY/VELOCITY STUDY, EACH NERVE, ANY/ALL SITE(S) ALONG THE NERVE; MOTOR, WITH F-WAVE STUDY 03/09/2010 DoD FOOT EXAMINATION PERFORMED (INCLUDES EXAMINATION THROUGH VISUAL INSPECTION, SENSORY EXAM WITH MONOFILAMENT, AND PULSE EXAM - REPORT WHEN ANY OF THE 3 COMPONENTS ARE COMPLETED) (DM) 12/21/2009 DoD POSTOPERATIVE FOLLOW-UP VISIT, NORMALLY INCLUDED IN THE SURGICAL PACKAGE, INDICATE THAT EVALUATION & MANAGEMENT SERVICE WAS PERFORMED DURING A POSTOPERATIVE PERIOD REASON RELATED ORIGINAL PROCEDURE 11/26/2009 DoD BLADDER IRRIGATION, SIMPLE, LAVAGE AND/OR INSTILLATION 11/16/2009 DoD INJECTION OR INFUSION OF OTHER THERAPEUTIC OR PROPHYLACTIC SUBSTANCE 11/11/2009 DoD REPAIR OF CYSTOCELE AND RECTOCELE WITH GRAFT OR PROSTHESIS 11/11/2009 [facility] INSERTION OF BIOLOGICAL GRAFT 11/11/2009 DoD POSTOPERATIVE FOLLOW-UP VISIT, NORMALLY INCLUDED IN THE SURGICAL PACKAGE, INDICATE THAT EVALUATION & MANAGEMENT SERVICE WAS PERFORMED DURING A POSTOPERATIVE PERIOD REASON RELATED ORIGINAL PROCEDURE 11/11/2009 DoD UNLISTED PROCEDURE, URINARY SYSTEM 11/10/2009 DoD FOOT EXAMINATION PERFORMED (INCLUDES EXAMINATION THROUGH VISUAL INSPECTION, SENSORY EXAM WITH MONOFILAMENT, AND PULSE EXAM - REPORT WHEN ANY OF THE 3 COMPONENTS ARE COMPLETED) (DM) 10/26/2009 DoD MEASUREMENT OF POST-VOIDING RESIDUAL URINE AND/OR BLADDER CAPACITY BY ULTRASOUND, NON-IMAGING 09/23/2009 DoD INJECTION, PROMETHAZINE HCL, UP TO 50 MG 03/18/2009 DoD VOIDING PRESSURE STUDIES (MANAGER OF SELECTION AND ASSESSMENT); BLADDER VOIDING PRESSURE, ANY TECHNIQUE 02/13/2009 DoD NASAL ENDOSCOPY, DIAGNOSTIC, UNILATERAL OR BILATERAL (SEPARATE PROCEDURE) 09/15/2008 DoD L5 VSIT TP B ED;(ED MT 1 FOL RQ:1:LIC ST LOC UNDER ST LAW EMRRM/EMRDEP;2:OUT PUB PRV CRE,EMR MED URG WO JAMARCUS 3:CY PRE CY DET UND 42 CFR 489.24 MDE,[place],PT VST THT CY,08/23,OTPT VST,TX,MED URG WO JAMARCUS) 03/10/2008 DoD DESTRUCTION (EG, LASER SURGERY, ELECTROSURGERY, CRYOSURGERY, CHEMOSURGERY, SURGICAL CURETTEMENT), OF BENIGN LESIONS OTHER THAN SKIN TAGS OR CUTANEOUS VASCULAR PROLIFERATIVE LESIONS; UP TO 14 LESIONS 12/04/2007 DoD SHAVING OF EPIDERMAL OR DERMAL LESION, SINGLE LESION, TRUNK, ARMS OR LEGS; LESION DIAMETER 0.6 TO 1.0 CM 11/27/2007 Do D ELECTROCARDIOGRAM, ROUTINE ECG WITH AT LEAST 12 LEADS; WITH INTERPRETATION AND REPORT 11/13/2007 DoD COLLECTION OF VENOUS BLOOD BY VENIPUNCTURE 08/25/2007 DoD COLLECTION OF VENOUS BLOOD BY VENIPUNCTURE 08/12/2007 DoD ELECTROCARDIOGRAM, ROUTINE ECG WITH AT LEAST 12 LEADS; WITH INTERPRETATION AND REPORT 04/24/2007 DoD INJECTION, FENTANYL CITRATE, 0.1 MG 08/08/2006 DoD OPHTHALMOLOGICAL SERVICES: MEDICAL EXAMINATION AND EVALUATION, WITH INITIATION OR CONTINUATION OF DIAGNOSTIC AND TREATMENT PROGRAM; INTERMEDIATE, ESTABLISHED PATIENT 05/23/2006 [facility] DETERMINATION OF REFRACTIVE STATE 02/01/2006 DoD INJECTION, PROMETHAZINE HCL, UP TO 50 MG 09/08/2005 DoD SCREENING [employer] SMEAR; OBTAINING, PREPARING AND CONVEYANCE OF CERVICAL OR VAGINAL SMEAR TO LABORATORY 07/25/2005 DoD ELECTROCARDIOGRAM, ROUTINE ECG WITH AT LEAST 12 LEADS; INTERPRETATION AND REPORT ONLY 07/11/2005 DoD COLLECTION OF VENOUS BLOOD BY VENIPUNCTURE 07/10/2005 DoD POSTOPERATIVE FOLLOW-UP VISIT, NORMALLY INCLUDED IN THE SURGICAL PACKAGE, INDICATE THAT EVALUATION & MANAGEMENT SERVICE WAS PERFORMED DURING A POSTOPERATIVE PERIOD REASON RELATED ORIGINAL PROCEDURE 04/18/2005 [facility] OTHER REPAIR OF URINARY STRESS INCONTINENCE 03/17/2005 [facility] REPAIR OF CYSTOCELE AND RECTOCELE 03/17/2005 [facility] INTERMITTENT URINARY CATHETER; STRAIGHT TIP, WITH OR WITHOUT COATING(MAAME, SILICONE, SILICONE ELASTOMER, OR HYDROPHILIC, ETC.), EACH 02/11/2005 [facility] ARTERIOVENOSTOMY FOR RENAL DIALYSIS 11/14/2004 [facility] HEMODIALYSIS 11/14/2004 [facility] UNLISTED DIALYSIS PROCEDURE, INPATIENT OR OUTPATIENT 11/13/2004 [facility] INDIVIDUAL PSYCHOTHERAPY, INSIGHT ORIENTED, BEHAVIOR MODIFYING AND/OR SUPPORTIVE, IN AN OFFICE OR OUTPATIENT FACILITY, APPROXIMATELY 45 TO 50 MINUTES TSFE-ON-EKSO WITH THE PATIENT 05/12/2004 DoD PHARMACOLOGIC MANAGEMENT, INCLUDING PRESCRIPTION, USE, AND REVIEW OF MEDICATION WITH NO MORE THAN MINIMAL MEDICAL PSYCHOTHERAPY 02/24/2004 DoD NONINVASIVE EAR OR PULSE OXIMETRY FOR OXYGEN SATURATION; SINGLE DETERMINATION 01/04/2004 DoD PHARMACOLOGIC MANAGEMENT, INCLUDING PRESCRIPTION, USE, AND REVIEW OF MEDICATION WITH NO MORE THAN MINIMAL MEDICAL PSYCHOTHERAPY 12/23/2003 DoD PHARMACOLOGIC MANAGEMENT, INCLUDING PRESCRIPTION, USE, AND REVIEW OF MEDICATION WITH NO MORE THAN MINIMAL MEDICAL PSYCHOTHERAPY 11/04/2003 DoD INDIVIDUAL PSYCHOTHERAPY, INSIGHT ORIENTED, BEHAVIOR MODIFYING AND/OR SUPPORTIVE, IN AN OFFICE OR OUTPATIENT FACILITY, APPROXIMATELY 45 TO 50 MINUTES WTMU-EB-DZMT WITH THE PATIENT 09/30/2003 DoD GROUP PSYCHOTHERAPY (OTHER THAN OF A MULTIPLE-FAMILY GROUP) 09/16/2003 Do D INTERACTIVE GROUP PSYCHOTHERAPY 09/03/2003 DoD INDIVIDUAL PSYCHOTHERAPY, INSIGHT ORIENTED, BEHAVIOR MODIFYING AND/OR SUPPORTIVE, IN AN OFFICE OR OUTPATIENT FACILITY, APPROXIMATELY 45 TO 50 MINUTES LBZF-NH-VPIW WITH THE PATIENT 07/28/2003 DoD INDIVIDUAL PSYCHOTHERAPY, INSIGHT ORIENTED, BEHAVIOR MODIFYING AND/OR SUPPORTIVE, IN AN OFFICE OR OUTPATIENT FACILITY, APPROXIMATELY 20 TO 30 MINUTES [id number]-IU-[id number] W THE PATIENT; W MED EVAL & MGT SER 07/14/2003 [facility] COLONOSCOPY, FLEXIBLE; WITH REMOVAL OF TUMOR(S), POLYP(S), OR OTHER LESION(S) BY HOT BIOPSY FORCEPS 03/19/2003 [facility] SCREENING PAPANICOLAOU SMEAR; OBTAINING, PREPARING AND CONVEYANCE OF CERVICAL OR VAGINAL SMEAR TO LABORATORY 02/26/2003 DoD INDIVIDUAL PSYCHOTHERAPY, INSIGHT ORIENTED, BEHAVIOR MODIFYING AND/OR SUPPORTIVE, IN AN OFFICE OR OUTPATIENT FACILITY, APPROXIMATELY 20 TO 30 MINUTES HIXZ-WX-XKEX WITH THE PATIENT 02/04/2003 DoD UNLISTED PSYCHIATRIC SERVICE OR PROCEDURE 01/23/2003 DoD INDIVIDUAL PSYCHOTHERAPY, INSIGHT ORIENTED, BEHAVIOR MODIFYING AND/OR SUPPORTIVE, IN AN OFFICE OR OUTPATIENT FACILITY, APPROXIMATELY 20 TO 30 MINUTES SGJM-CX-TNNF WITH THE PATIENT 12/06/2002 DoD INDIVIDUAL PSYCHOTHERAPY, INSIGHT ORIENTED, BEHAVIOR MODIFYING AND/OR SUPPORTIVE, IN AN OFFICE OR OUTPATIENT FACILITY, APPROXIMATELY 20 TO 30 MINUTES HALN-CN-JSQC WITH THE PATIENT 11/08/2002 DoD UNLISTED PSYCHIATRIC SERVICE OR PROCEDURE 10/21/2002 DoD INDIVIDUAL PSYCHOTHERAPY, INSIGHT ORIENTED, BEHAVIOR MODIFYING AND/OR SUPPORTIVE, IN AN OFFICE OR OUTPATIENT FACILITY, APPROXIMATELY 20 TO 30 MINUTES YMHS-FX-KUCK WITH THE PATIENT 10/18/2002 DoD INDIVIDUAL PSYCHOTHERAPY, INSIGHT ORIENTED, BEHAVIOR MODIFYING AND/OR SUPPORTIVE, IN AN OFFICE OR OUTPATIENT FACILITY, APPROXIMATELY 20 TO 30 MINUTES YQVR-WH-JXVL WITH THE PATIENT 09/26/2002 DoD INDIVIDUAL PSYCHOTHERAPY, INSIGHT ORIENTED, BEHAVIOR MODIFYING AND/OR SUPPORTIVE, IN AN OFFICE OR OUTPATIENT FACILITY, APPROXIMATELY 45 TO 50 MINUTES RBLZ-ZX-LETM WITH THE PATIENT 08/29/2002 DoD PHARMACOLOGIC MANAGEMENT, INCLUDING PRESCRIPTION, USE, AND REVIEW OF MEDICATION WITH NO MORE THAN MINIMAL MEDICAL PSYCHOTHERAPY 08/28/2002 DoD PHARMACOLOGIC MANAGEMENT, INCLUDING PRESCRIPTION, USE, AND REVIEW OF MEDICATION WITH NO MORE THAN MINIMAL MEDICAL PSYCHOTHERAPY 08/13/2002 DoD INDIVIDUAL PSYCHOTHERAPY, INSIGHT ORIENTED, BEHAVIOR MODIFYING AND/OR SUPPORTIVE, IN AN OFFICE OR OUTPATIENT FACILITY, APPROXIMATELY 45 TO 50 MINUTES MPDQ-DE-NNMH WITH THE PATIENT 07/31/2002 DoD PHARMACOLOGIC MANAGEMENT, INCLUDING PRESCRIPTION, USE, AND REVIEW OF MEDICATION WITH NO MORE THAN MINIMAL MEDICAL PSYCHOTHERAPY 07/31/2002 DoD PHARMACOLOGIC MANAGEMENT, INCLUDING PRESCRIPTION, USE, AND REVIEW OF MEDICATION WITH NO MORE THAN MINIMAL MEDICAL PSYCHOTHERAPY 07/26/2002 DoD INDIVIDUAL PSYCHOTHERAPY, INSIGHT ORIENTED, BEHAVIOR MODIFYING AND/OR SUPPORTIVE, IN AN OFFICE OR OUTPATIENT FACILITY, APPROXIMATELY 20 TO 30 MINUTES DALL-DX-UEME WITH THE PATIENT 07/26/2002 DoD INDIVIDUAL PSYCHOTHERAPY, INSIGHT ORIENTED, BEHAVIOR MODIFYING AND/OR SUPPORTIVE, IN AN OFFICE OR OUTPATIENT FACILITY, APPROXIMATELY 20 TO 30 MINUTES LNXP-OG-DLKC WITH THE PATIENT 06/28/2002 DoD INDIVIDUAL PSYCHOTHERAPY, INSIGHT ORIENTED, BEHAVIOR MODIFYING AND/OR SUPPORTIVE, IN AN OFFICE OR OUTPATIENT FACILITY, APPROXIMATELY 45 TO 50 MINUTES AORO-DK-QJDI WITH THE PATIENT 05/30/2002 DoD INDIVIDUAL PSYCHOTHERAPY, INSIGHT ORIENTED, BEHAVIOR MODIFYING AND/OR SUPPORTIVE, IN AN OFFICE OR OUTPATIENT FACILITY, APPROXIMATELY 20 TO 30 MINUTES ACHN-MD-KPFX WITH THE PATIENT 04/26/2002 DoD INJECTION, PROMETHAZINE HCL, UP TO 50 MG 04/13/2002 DoD INDIVIDUAL PSYCHOTHERAPY, INSIGHT ORIENTED, BEHAVIOR MODIFYING AND/OR SUPPORTIVE, IN AN OFFICE OR OUTPATIENT FACILITY, APPROXIMATELY 20 TO 30 MINUTES GUMJ-WS-OYNR WITH THE PATIENT 04/05/2002 DoD INDIVIDUAL PSYCHOTHERAPY, INSIGHT ORIENTED, BEHAVIOR MODIFYING AND/OR SUPPORTIVE, IN AN OFFICE OR OUTPATIENT FACILITY, APPROXIMATELY 20 TO 30 MINUTES FWRQ-GL-SIEZ WITH THE PATIENT 03/19/2002 DoD PHARMACOLOGIC MANAGEMENT, INCLUDING PRESCRIPTION, USE, AND REVIEW OF MEDICATION WITH NO MORE THAN MINIMAL MEDICAL PSYCHOTHERAPY 03/19/2002 [facility] SCREENING [employer]ANICOLA[employer] SMEAR; OBTAINING, PREPARING AND CONVEYANCE OF CERVICAL OR VAGINAL SMEAR TO LABORATORY 03/18/2002 DoD INDIVIDUAL PSYCHOTHERAPY, INSIGHT ORIENTED, BEHAVIOR MODIFYING AND/OR SUPPORTIVE, IN AN OFFICE OR OUTPATIENT FACILITY, APPROXIMATELY 45 TO 50 MINUTES DBRA-ME-NYBV WITH THE PATIENT 02/04/2002 DoD INDIVIDUAL PSYCHOTHERAPY, INSIGHT ORIENTED, BEHAVIOR MODIFYING AND/OR SUPPORTIVE, IN AN OFFICE OR OUTPATIENT FACILITY, APPROXIMATELY 45 TO 50 MINUTES JLCS-RA-MBSN WITH THE PATIENT 01/08/2002 DoD INTRAVENOUS INFUSION FOR THERAPY/DIAGNOSIS, ADMINISTERED BY PHYSICIAN OR UNDER DIRECT SUPERVISION OF PHYSICIAN; UP TO ONE HOUR 12/26/2001 DoD INDIVIDUAL PSYCHOTHERAPY, INSIGHT ORIENTED, BEHAVIOR MODIFYING AND/OR SUPPORTIVE, IN AN OFFICE OR OUTPATIENT FACILITY, APPROXIMATELY 45 TO 50 MINUTES DNLH-HA-AZYN WITH THE PATIENT 12/04/2001 DoD INDIVIDUAL PSYCHOTHERAPY, INSIGHT ORIENTED, BEHAVIOR MODIFYING AND/OR SUPPORTIVE, IN AN OFFICE OR OUTPATIENT FACILITY, APPROXIMATELY 45 TO 50 MINUTES MWWG-PP-AWTB WITH THE PATIENT 11/06/2001 DoD AMBULATORY BLOOD PRESSURE MONITORING, UTILIZING REPORT-GENERATING SOFTWARE, AUTOMATED, WORN CONTINUOUSLY FOR 24 HOURS OR LONGER; RECORDING ONLY 10/29/2001 DoD INDIVIDUAL PSYCHOTHERAPY, INSIGHT ORIENTED, BEHAVIOR MODIFYING AND/OR SUPPORTIVE, IN AN OFFICE OR OUTPATIENT FACILITY, APPROXIMATELY 45 TO 50 MINUTES NSMO-RV-OMCJ WITH THE PATIENT 10/09/2001 DoD COLLECTION OF VENOUS BLOOD BY VENIPUNCTURE 10/04/2001 DoD INDIVIDUAL PSYCHOTHERAPY, INSIGHT ORIENTED, BEHAVIOR MODIFYING AND/OR SUPPORTIVE, IN AN OFFICE OR OUTPATIENT FACILITY, APPROXIMATELY 45 TO 50 MINUTES SFRZ-IE-LQHX WITH THE PATIENT 09/18/2001 DoD AMBULATORY BLOOD PRESSURE MONITORING, UTILIZING REPORT-GENERATING SOFTWARE, AUTOMATED, WORN CONTINUOUSLY FOR 24 HOURS OR LONGER; RECORDING ONLY 09/12/2001 DoD INJECTION, MORPHINE SULFATE, UP TO 10 MG 09/09/2001 DoD SUPP &MATERIAL (EXCEPT SPECTACLE),PROVID,THE PHYS/OTH QUALIFIED [employer] PROFESSIONAL OVER &ABOVE THOSE USUALLY INCLD W THE OFFICE VISIT/OTH SER RENDERED (LIST DRUG,TRAYS,SUPP,OR MATERIAL PROVID) 08/30/2001 DoD INDIVIDUAL PSYCHOTHERAPY, INSIGHT ORIENTED, BEHAVIOR MODIFYING AND/OR SUPPORTIVE, IN AN OFFICE OR OUTPATIENT FACILITY, APPROXIMATELY 45 TO 50 MINUTES MYOC-RC-OJIH WITH THE PATIENT 08/07/2001 DoD SUPP &MATERIAL (EXCEPT SPECTACLE),PROVID,THE PHYS/OTH QUALIFIED [employer] PROFESSIONAL OVER &ABOVE THOSE USUALLY INCLD W THE OFFICE VISIT/OTH SER RENDERED (LIST DRUG,TRAYS,SUPP,OR MATERIAL PROVID) 08/06/2001 DoD SUPP &MATERIAL (EXCEPT SPECTACLE),PROVID,[facility]/OTH QUALIFIED HEALTH COMMERCIAL PARTS PROFESSIONAL OVER &ABOVE THOSE USUALLY INCLD W THE OFFICE VISIT/OTH SER RENDERED (LIST DRUG,TRAYS,SUPP,OR MATERIAL PROVID) 07/11/2001 DoD UNLISTED PSYCHIATRIC SERVICE OR PROCEDURE 06/12/2001 DoD INDIVIDUAL PSYCHOTHERAPY, INSIGHT ORIENTED, BEHAVIOR MODIFYING AND/OR SUPPORTIVE, IN AN OFFICE OR OUTPATIENT FACILITY, APPROXIMATELY 45 TO 50 MINUTES JTGI-QY-AWRP WITH THE PATIENT 05/15/2001 DoD INDIVIDUAL PSYCHOTHERAPY, INSIGHT ORIENTED, BEHAVIOR MODIFYING AND/OR SUPPORTIVE, IN AN OFFICE OR OUTPATIENT FACILITY, APPROXIMATELY 45 TO 50 MINUTES JZCM-FK-ATVD W THE PATIENT; W MED EVAL & MGT SER 03/28/2001 DoD INDIVIDUAL PSYCHOTHERAPY, INSIGHT ORIENTED, BEHAVIOR MODIFYING AND/OR SUPPORTIVE, IN AN OFFICE OR OUTPATIENT FACILITY, APPROXIMATELY 45 TO 50 MINUTES KZMW-AS-LBGJ WITH THE PATIENT 03/28/2001 DoD HANDLING AND/OR CONVEYANCE OF SPECIMEN FOR TRANSFER FROM THE OFFICE TO A LABORATORY 03/26/2001 Do D PHARMACOLOGIC MANAGEMENT, INCLUDING PRESCRIPTION, USE, AND REVIEW OF MEDICATION WITH NO MORE THAN MINIMAL MEDICAL PSYCHOTHERAPY 03/06/2001 DoD INDIVIDUAL PSYCHOTHERAPY, INSIGHT ORIENTED, BEHAVIOR MODIFYING AND/OR SUPPORTIVE, IN AN OFFICE OR OUTPATIENT FACILITY, APPROXIMATELY 45 TO 50 MINUTES OCHQ-ZP-[id number] W THE PATIENT; W MED EVAL & MGT SER 02/09/2001 DoD PHARMACOLOGIC MANAGEMENT, INCLUDING PRESCRIPTION, USE, AND REVIEW OF MEDICATION WITH NO MORE THAN MINIMAL MEDICAL PSYCHOTHERAPY 01/31/2001 DoD ESOPHAGOGASTRODUODENOS COPY, FLEXIBLE, TRANSORAL; WITH BIOPSY, SINGLE OR MULTIPLE 01/24/2001 DoD INDIVIDUAL PSYCHOTHERAPY, INSIGHT ORIENTED, BEHAVIOR MODIFYING AND/OR SUPPORTIVE, IN AN OFFICE OR OUTPATIENT FACILITY, APPROXIMATELY 45 TO 50 MINUTES VZJI-MX-ONDL W THE PATIENT; W MED EVAL & MGT SER 12/26/2000 DoD AMBULATORY BLOOD PRESSURE MONITORING, UTILIZING REPORT-GENERATING SOFTWARE, AUTOMATED, WORN CONTINUOUSLY FOR 24 HOURS OR LONGER; RECORDING ONLY 12/14/2000 DoD INDIVIDUAL PSYCHOTHERAPY, INSIGHT ORIENTED, BEHAVIOR MODIFYING AND/OR SUPPORTIVE, IN AN OFFICE OR OUTPATIENT FACILITY, APPROXIMATELY 45 TO 50 MINUTES IKQG-BS-CFKZ W THE PATIENT; W MED EVAL & MGT SER 12/11/2000 DoD INJECTION, KETOROLAC TROMETHAMINE, PER 15 MG 12/09/2000 DoD INDIVIDUAL PSYCHOTHERAPY, INSIGHT ORIENTED, BEHAVIOR MODIFYING AND/OR SUPPORTIVE, IN AN OFFICE OR OUTPATIENT FACILITY, APPROXIMATELY 45 TO 50 MINUTES PSQR-XR-IURY W THE PATIENT; W MED EVAL & MGT SER 10/24/2000 DoD INDIVIDUAL PSYCHOTHERAPY, INSIGHT ORIENTED, BEHAVIOR MODIFYING AND/OR SUPPORTIVE, IN AN OFFICE OR OUTPATIENT FACILITY, APPROXIMATELY 45 TO 50 MINUTES AYFR-PF-YCXM W THE PATIENT; W MED EVAL & MGT SER 06/13/2000 DoD INDIVIDUAL PSYCHOTHERAPY, INSIGHT ORIENTED, BEHAVIOR MODIFYING AND/OR SUPPORTIVE, IN AN OFFICE OR OUTPATIENT FACILITY, APPROXIMATELY 45 TO 50 MINUTES EWFP-MW-IPJD W THE PATIENT; W MED EVAL & MGT SER 05/23/2000 DoD INDIVIDUAL PSYCHOTHERAPY, INSIGHT ORIENTED, BEHAVIOR MODIFYING AND/OR SUPPORTIVE, IN AN OFFICE OR OUTPATIENT FACILITY, APPROXIMATELY 45 TO 50 MINUTES KWKO-CU-[id number] W THE PATIENT; W [facility] EVAL & MGT SER 05/08/2000 DoD INJECTION, LORAZEPAM, 2 MG 04/15/2000 DoD INDIVIDUAL PSYCHOTHERAPY, INSIGHT ORIENTED, BEHAVIOR MODIFYING AND/OR SUPPORTIVE, IN AN OFFICE OR OUTPATIENT FACILITY, APPROXIMATELY 45 TO 50 MINUTES QBKD-LS-GNUG W THE PATIENT; W MED EVAL & MGT SER 03/06/2000 DoD INDIVIDUAL PSYCHOTHERAPY, INSIGHT ORIENTED, BEHAVIOR MODIFYING AND/OR SUPPORTIVE, IN AN OFFICE OR OUTPATIENT FACILITY, APPROXIMATELY 45 TO 50 MINUTES LVUN-UQ-UXVM W THE PATIENT; W [facility] EVAL & MGT SER 12/17/1999 DoD INDIVIDUAL PSYCHOTHERAPY, INSIGHT ORIENTED, BEHAVIOR MODIFYING AND/OR SUPPORTIVE, IN AN OFFICE OR OUTPATIENT FACILITY, APPROXIMATELY 45 TO 50 MINUTES [id number] W THE PATIENT; [facility] 10/28/1999 [facility] PHARMACOLOGIC MANAGEMENT, INCLUDING PRESCRIPTION, USE, AND REVIEW OF MEDICATION WITH NO MORE THAN MINIMAL MEDICAL PSYCHOTHERAPY 10/14/1999 [facility] PHARMACOLOGIC MANAGEMENT, INCLUDING PRESCRIPTION, USE, AND REVIEW OF MEDICATION WITH NO MORE THAN MINIMAL MEDICAL PSYCHOTHERAPY 10/04/1999 [facility] No data available for this section Ambulatory Pharmacy Social History Combined list of available smoking, tobacco, and other social history from [facility] facilities. Social History Type Response Date Comment Sourc e This section is an empty social history section. [facility] Assessment and Plan Combined list of future care activities from [facility] and [facility] facilities (e.g., assessment and plan notes, appointments, orders, and referrals). Additional future care activities may be listed in the Plan of Care section. Result Assessment and Plan Date Source Assessment and Plan No data available for this section 10/02/2024 Ambulatory Pharmacy Functional Status Combined list of recent functional and cognitive assessments recorded at [facility] [employer] ([facility]VA Functional [place] Measurement (FIM) Scale: 1 = Total Assistance (Subject = 0% +), 2 = Maximal Assistance (Subject = 25% +), 3 = Moderate Assistance (Subject = 50% +), 4 = Minimal Assistance (Subject = 75% +), 5 = Supervision, 6 = Modified [place] (Device), 7 = Complete [place] (Timely, Safely). Assessment Date/Time Source Assessment Type Assessment Skill Assessment Score Assessment Details No data available for this section
--- OUTSIDE RECORDS SUMMARY | 2024-10-02 10:39 | XMS_ITS ---
Author Organization [facility] [place] [facility] Address [address] [facility] [address] [place] [address] Care Team Providers Care Senior Sustainability Advisor Name Role Phone Felipe Mckeon MD Primary Care Provider Narciso Woods Unavailable [phone] Alessandra Jackson Unavailable [phone] Social History Sex Assigned At : Social History Observation Description Sex Assigned At Female Encounters Encounter Location Date Provider Diagnosis [facility] [place] [address] [facility] [address] [place] [address] 09/19/2024 Alessandra Jackson Plan Of Treatment Next Appt Details Provider Name:Evie Holloway , 11/07/2024 01:30:00 PM, [address], [address], [address], Provider Name:Alessandra Jackson , 08/28/2025 02:00:00 PM, [address], [address], [address], Provider Name:Alessandra Jackson , 09/04/2025 02:00:00 PM, [address], [address], [address], Provider Name:Alessandra Jackson , 09/11/2025 02:00:00 PM, [address], [address], [address], Provider Name:Alessandra Jackson , 09/18/2025 02:00:00 PM, [address], [address], [place], [address], Provider Name:Alessandra Jackson , 09/25/2025 02:00:00 PM, [address], [address], [place], [address], Provider Name:Alessandra Jackson , 10/02/2025 02:00:00 PM, [address], [address], [place], [address], Provider Name:Alessandra Jackson , 10/09/2025 02:00:00 PM, [address], [address], [place], [address], Provider Name:Alessandra Jackson , 10/16/2025 02:00:00 PM, [address], [address], [place], [address], Provider Name:Alessandra Jackson , 10/23/2025 02:00:00 PM, [facility], [address], [place], [address], Provider Name:Alessandra Jackson , 10/30/2025 02:00:00 PM, [address], [address], [place], [address], Provider Name:Alessandra Jackson , 11/06/2025 02:00:00 PM, [address], [address], [place], [address], Provider Name:Alessandra Jackson , 11/13/2025 02:00:00 PM, [address], [address], [place], [address], Provider Name:Alessandra Jackson , 11/20/2025 02:00:00 PM, [address], [address], [place], [address], Provider Name:Alessandra Jackson , 11/27/2025 02:00:00 PM, [address], [address], [place], [address], Provider Name:Alessandra Jackson , 12/04/2025 02:00:00 PM, [address], [address], [address], Provider Name:Alessandra Jackson , 12/11/2025 02:00:00 PM, [address], [address], [address], Provider Name:Alessandra Jackson , 12/18/2025 02:00:00 PM, [facility], [address], [address], Provider Name:Alessandra Jackson , 12/25/2025 02:00:00 PM, [facility], [place] [address], [place], [address], Provider Name:Alessandra Jackson , 01/01/2026 02:00:00 PM, [facility] [address], [address], Provider Name:Alessandra Jackson , 01/08/2026 02:00:00 PM, [facility] [address], [address], Progress Notes * MALGORZATA PATOB:1950 (74 yo F)Acc No.[id number]:09/19/2024 Patient: VILMA MCCARTY Provider: Roselyn JACKSON LCSW :1950 A ge:74 Y S ex:Female Date:09/19/2024 Address:[address] [place] [address], [id number] Pcp:Felipe Mckeon MD Data: * Chief Complaints: * * Medical History: * Surgical History: * Hospitalization/Major Diagno stic Procedure: * Medications: * Vitals: Assessment: Plan: * Treatment: * Procedure Codes: * Billing Information: * Visit Code: * Procedure Codes: Care Plan Details* Group Therapy Template Group Summary G roup members focused on how the brain responds to trauma. How many clients in group 5 Discussion Topic G roudash discussed the changes that occur in the brain in response to trauma. Group members also did a trauma tree to signify the trauma periods of their life (starting in utero to adulthood). Group members then discussed what they learned by doing the trauma tree. Participation E leslieaged Plan a gree to meet for next groupComments :Group members are to be thinking about all the things that help them to feel safe for next weeks group. PTSD Topic of the day T rauma's impact on the brain. Trauma tree * NG MAKER Sign off status: Completed true * Provider: Roselyn JACKSON LCSW Date: 09/19/2024 Generated for Aggie nelson/Amador/Camiitting on: 0 10/02/2024 10:39 AM LINING MAKER
--- OUTSIDE RECORDS SUMMARY | 2024-10-02 10:41 | XMS_ITS | Encounter Summary ---
Author Organization [facility] Address [address] [place] [address] Care Team Providers Care Pneumatic Tester Name Role Phone Felipe Mckeon MD Primary Care Provider [phone] Jeff Lau MD Unavailable [phone] Encounter Details Date Type Department Care Team (Late st Contact Info) Description 09/11/2024 Lab Requisition [facility] - DermPath Lab [address] [facility] [place] [address] Sarah Ang MD [address] [facility] [address] [place] [address] Social History Tobacco Use Types Packs/Day Years [...] Diagnosis Comments DERMATOPATHOLOGY Routine 09/11/2024 3:33 AM CARTON MAKING MACHINE OPERATOR documented in this encounter Results * DERMATOPATHOLOGY (09/11/2024 3:33 AM CARTON MAKING MACHINE OPERATOR) Case Report Dermatopathology Report Case: [id number] Authorizing Provider: Sarah Ang MD Collected: 09/11/2024 03:33 AM Ordering Location: [facility] - Received: 09/12/2024 11:00 AM DermPath Lab Pathologist: Brit Rutledge MD Specimen: Skin, left gnosticism 6:12 PM [facility] DERMATOPATHOLOGY LABORATORY Final Diagnosis Specimen A. SKIN, left gnosticism: FRAGMENTS OF EPIDERMIS (D23.9) (see microscopic description) 6:12 PM [facility] DERMATOPATHOLOGY LABORATORY Clinical History R/O Cyst, BCC 6:12 PM [facility] DERMATOPATHOLOGY LABORAT[facility] Gross Description Specimen A: Received is one formalin filled container labeled with the patient's name and designated left gnosticism. The specimen consists of a shave biopsy measuring 3 pieces 5x3x1,5x4x1,4x3x1 mm. Jar 0. 6:12 PM [facility] DERMATOPATHOLOGY LABORATORY Microscopic Description Specimen A. SKIN, left gnosticism: There are fragments of squamous epithelium without evidence of epithelial dysplasia or malignancy. There is minimal dermis present for evaluation. Additional deeper sections were obtained and reviewed. 6:12 PM [facility] DERMATOPATHOLOGY LABORATORY Disclaimer An external and internal positive and negative controls are appropriate for the histochemical, immunohistochemical and immunofluorescence stain(s) in this case (if any), except where stated explicitly. The performance characteristics of the stain(s) cited in this report were developed and its performance characteristic determined by the Dermatopathology Laboratory at [facility], directed by Dr. Krystal Rutledge. These tests need not be, and therefore are not, approved by the [place] Food and Drug Administration. The tests are used for clinical purposes. Billing Codes Specimen Charges Stain Charges 98394 1 6:12 PM [facility] DERMATOPATHOLOGY LABORATORY Embedded Images 01/29/202 5 6:12 PM CARTON MAKING MACHINE OPERATOR DERMATOPATHOLOGY LABORATORY Pathology/Cytolo gy TISSUE SPECIMEN FROM SKIN / Unknown 09/11/2024 3:33 AM CARTON MAKING MACHINE OPERATOR 09/12/2024 11:00 AM CARTON MAKING MACHINE OPERATOR Sarah Ang MD LAB - PATHOLOGY/CYTO LOGY ORDERABLES DERMATOPATHOLOGY LABORATORY [facility] - Department of Dermatology [facility] Specialized Medicine [address] [place] [address], [address] [phone] documented in this encounter Visit Diagnoses Not on filedocumented in this encounter Care Teams Pneumatic Tester Relationship Specialty Start Date End Date Felipe Mckeon MD [address] [place] [address] PCP - General Family Medicine 08/20/18 Jeff Lau MD [address] [place] [address] Ophthalmology 09/05/18 documented as of this encounter
--- OUTSIDE RECORDS SUMMARY | 2024-10-02 10:41 | XMS_ITS | Referral Summary ---
Author Organization [facility] Address [address] [place] [address] Care Team Providers Care Collar Packer Name Role Phone Felipe Mckeon MD Unavailable [phone] Felipe Mckeon MD Primary Care Provider Jose Blankenship MD Unavailable [phone] Encounters Date Type Department Care Team Description 09/10/2024 Telephone [facility] Medical Group Cardiology [address] [place] [address] Edilberto Paidlla MD Med Refill from Last 3 Months Allergies Active Allergy Reactions Criticality Noted Date Comments Clindamycin Rash,Urticaria Medium 07/25/2017 Prochlorperazine Nausea & Vomiting Low 07/25/2017 Meperidine Nausea & Vomiting Low 07/25/2017 Morphine Nausea & Vomiting Medium 07/25/2017 Medications lamoTRIgine (LaMICtal) 100 mg tablet Take 1 tablet (100 mg total) by mouth daily 7 Active buPROPion XL (WELLBUTRIN XL) 300 mg 24 hr tablet Take 1 tablet (300 mg total) by mouth daily 7 Active OLANZapine (ZyPREXA) 2.5 mg tablet Take 1 tablet (2.5 mg total) by mouth daily 7 Active REQUIP 1 mg tablet Take 1 tablet (1 mg total) by mouth 2 (two) times a day Takes at 1200 and 2200 7 Active metFORMIN (GLUCOPHAGE) 500 mg tablet Take 1 tablet (500 mg total) by mouth 2 (two) times a day Take 2 tablets twice daily. 7 Active fenofibrate (TRIGLIDE) 160 mg tablet Take 1 tablet (160 mg total) by mouth daily Takes at 1200 7 Active valACYclovir (VALTREX) 1 gram tablet Take 1 tablet (1,000 mg total) by mouth as needed Cold Sores 7 Active TRAVEL SICKNESS, MECLIZINE, 25 mg tablet Take 12.5 mg by mouth daily as needed Traveling [address] (PROTONIX) 40 mg EC tabletIndicati ons:gastroesop hageal reflux disease Take 1 tablet (40 mg total) by mouth daily Active fexofenadine (NA) 180 mg tabletIndicati ons:Seasonal Allergic Rhinitis Take 1 tablet (180 mg total) by mouth daily Active lisinopril (PRINIVIL,ZEST RIL) 20 mg tabletIndicati ons:hypertensi on Take 1 tablet (20 mg total) by mouth daily Active ondansetron (ZOFRAN) 8 mg tabletIndicati ons:Nausea Take by mouth every 8 (eight) hours as needed for nausea or vomiting Active cholecalcifero l (VITAMIN D-3) 2,000 unit capsuleIndicat ions:Vitamin D Deficiency Take 1 capsule (2,000 Units total) by mouth daily Active multivitamin capsuleIndicat ions:Vitamin Deficiency,sto p 5 days before surgery Take 1 capsule by mouth daily Active polyethylene glycol (MIRALAX) 17 gram packetIndicati ons:constipati on Take 1 packet (17 g total) by mouth daily Active sodium chloride (JERONIMO 128) 2 % ophthalmic solution Administer 1 drop into both eyes 4 (four) times a day as needed for irritation Active ferrous sulfate 325 mg (65 mg of elemental iron) tabletIndicati ons:Iron Deficiency Anemia Take 1 tablet (325 mg total) by mouth daily with breakfast 9 Active hydrocortisone 2 % lotion Apply topically Act joycelyn fluticasone propionate (FLONASE) 50 mcg/actuation nasal spray Administer 1 spray into each nostril as needed Active nitroglycerin (NITROSTAT) 0.4 mg SL tabletIndicati ons:Coronary artery disease involving [place] coronary artery of [place] heart without angina pectoris Place 1 tablet (0.4 mg total) under the tongue every 5 (five) minutes as needed for chest pain 25 tablet 1 3 Active senna-docusate (PERICOLACE) 8.6-50 mg Take 1 tablet by mouth 2 (two) times a day as needed for constipation 60 tablet 2 3 Active oxyCODONE-acet aminophen (PERCOCET) 5-325 mg per tabletIndicati ons:Pain Take 1-2 tablets by mouth every 4 (four) hours as needed for pain 40 tablet 3 Active Additional Information Patient not taking.Reported on 10/09/2023 HYDROmorphone, bulk, (DILAUDID) 100 % powder 0 3 Active amLODIPine (NORVASC) 5 mg tabletIndicati ons:Hypertensi on associated with diabetes (HCC) Take 1 tablet (5 mg total) by mouth daily 90 tablet 5 Active aspirin 81 mg enteric coated tabletIndicati ons:Coronary artery disease involving [place] coronary artery of [place] heart without angina pectoris Take 1 tablet (81 mg total) by mouth daily 90 tablet 5 Active metoprolol tartrate (LOPRESSOR) 25 mg immediate release tabletIndicati ons:Hypertensi on associated with diabetes (HCC) Take 1 tablet (25 mg total) by mouth 2 (two) times a day 180 tablet 5 Active atorvastatin (LIPITOR) 40 mg tabletIndicati ons:Coronary artery disease involving [place] coronary artery of [place] heart without angina pectoris,Hyper cholesterolemi a Take 1 tablet (40 mg total) by mouth daily 90 tablet 5 Active ticagrelor (BRILINTA) 60 mg tabletIndicati ons:Coronary artery disease involving [place] coronary artery of [place] heart without angina pectoris Take 1 tablet (60 mg total) by mouth 2 (two) times a day 180 tablet 5 Active amLODIPine (NORVASC) 5 mg tabletIndicati ons:Hypertensi on associated with diabetes (HCC) Take 1 tablet (5 mg total) by mouth daily 90 tablet 3 4 025 Discontin ued(Reord er) atorvastatin (LIPITOR) 40 mg tabletIndicati ons:Coronary artery disease involving [place] coronary artery of [place] heart without angina pectoris,Hyper cholesterolemi a Take 1 tablet (40 mg total) by mouth daily 90 tablet 3 4 025 Discontin ued(Reord er) ticagrelor (BRILINTA) 60 mg tabletIndicati ons:Coronary artery disease involving [place] coronary artery of [place] heart without angina pectoris Take 1 tablet (60 mg total) by mouth 2 (two) times a day 180 tablet 3 4 025 Discontin ued(Reord er) aspirin 81 mg enteric coated tabletIndicati ons:Coronary artery disease involving [place] coronary artery of [place] heart without angina pectoris Take 1 tablet (81 mg total) by mouth daily 90 tablet 3 4 025 Discontin ued(Reord er) metoprolol tartrate (LOPRESSOR) 25 mg immediate release tabletIndicati ons:Hypertensi on associated with diabetes (HCC) Take 1 tablet (25 mg total) by mouth 2 (two) times a day 180 tablet 3 4 025 Discontin ued(Reord er) aspirin 81 mg enteric coated tabletIndicati ons:Coronary artery disease involving [place] coronary artery of [place] heart without angina pectoris Take 1 tablet (81 mg total) by mouth daily 90 tablet 5 025 Discontin ued(Reord er) metoprolol tartrate (LOPRESSOR) 25 mg immediate release tabletIndicati ons:Hypertensi on associated with diabetes (HCC) Take 1 tablet (25 mg total) by mouth 2 (two) times a day 180 tablet 5 025 Discontin ued(Reord er) amLODIPine (NORVASC) 5 mg tabletIndicati ons:Hypertensi on associated with diabetes (HCC) Take 1 tablet (5 mg total) by mouth daily 90 tablet 5 025 Discontin ued(Reord er) atorvastatin (LIPITOR) 40 mg tabletIndicati ons:Coronary artery disease involving [place] coronary artery of [place] heart without angina pectoris,Hyper cholesterolemi a Take 1 tablet (40 mg total) by mouth daily 90 tablet 5 025 Discontin ued(Reord er) ticagrelor (BRILINTA) 60 mg tabletIndicati ons:Coronary artery disease involving [place] coronary artery of [place] heart without angina pectoris Take 1 tablet (60 mg total) by mouth 2 (two) times a day 180 tablet 5 025 Discontin ued(Reord er) Active Problems Problem Noted Date Diagnosed Date Primary osteoarthritis of right hip 12/06/2022 Hyperkalemia 09/26/2022 CKD stage 3 due to type 2 diabetes mellitus 01/2023 Hyperlipidemia associated with type 2 diabetes m ellitus 09/14/2021 Anxiety and depression 09/14/2021 Atypical chest pain 09/14/2021 Polypharmacy 03/14/2021 Hypercholesterolemia 09/09/2019 Chronic pain syndrome 09/09/2019 Type 2 diabetes mellitus with vascular disease 0 09/09/2019 Essential hypertension 06/18/2019 Presence of stent in coronary artery 06/18/2019 Coronary artery disease invo lving [place] coronary artery of [place] heart without angina pectoris 06/18/2019 History of non-ST elevation myocardial infarctio n (NSTEMI) 06/18/2019 Exotropia, alternating 09/13/2018 Resolved Problems Problem Noted Date Diagnosed Date Resolved Date Pre-op testing 09/25/2020 10/09/2023 Chronic pain syndrome 06/15/20202023 Overview (06/15/2020): Added automatically from request for surgery [id number] Immunizations Name Administration Dates Next Due Influenza, Unspecified 05/25/2020 Social History Tobacco Use Types Packs/Day Years Used Date Smoking Tobacco: Never Passive Smoke Exposure: Past Smokeless Tobacco: Never Alcohol Use Standard Drinks/Week Comments Not Currently 0 (1 standard drink = 0.6 oz pur e alcohol) AUDIT-C Answer Date Recorded Q1: How often do you have a drink containing alc ohol? Monthly or less 01/10/2023 Q2: How many drinks containi ng alcohol do you have on a typical day when you are drinking? 1 or 2 01/10/2023 Q3: How often do you have si x or more drinks on one occasion? Never 01/10/2023 Personal Safety Answer Date Recorded Have you ever been in or are you currently in a harmful physical or emotional relationship or is someone making you feel afraid or unsafe? Denies 01/23/2023 Comments No Sex and Gender Information Value Date Recorded Sex Assigned at Not on file Legal Sex Female 3:51 AM [employer] Gender Identity Female 11/29/2022 7:59 AM CDT Sexual Orientation Straight 11/29/2022 7: 59 AM CDT Last Filed Vital Signs Vital Sign Reading Time Taken Comments Blood Pressure 134/70 10/09/2023 9:15 AM [employer] Pulse 82 10/09/2023 8:53 AM [employer] Temperature 36.4 C (97.5 F) 01/23/2023 11:00 AM CDT Respiratory Rate 20 01/23/2023 2:57 PM CDT Oxygen Saturation 94% 10/09/2023 8:53 AM [employer] Inhaled Oxygen Concentration - - Weight 58.5 kg (129 lb) 10/09/2023 8:53 AM [employer] Height 149.9 cm (4' 11 ) 10/09/2023 8:53 AM [employer] Body Mass Index 26.05 10/09/2023 8:53 AM [employer] Plan of Treatment Not on file Medical Devices Implanted Type Area Senior Java Developer Device Identifier Shelf Expiration Date Model / Serial / Lot [employer] [id number] Deni 1.6mm 152mm Trocar Point 2 End Style 1 Wire Fixation - [id number] Implanted:Qty: 2 on 07/11/2018 by Natalie Jung DPM at [facility] Wire Left: Toes [employer] 09/20/2027 [id number] / / [id number] Deni Wire Implanted:Qty: 1 on 07/11/2018 by Natalie Jung DPM at [facility] Wire Left: Toes [employer] 09/20/2027 [id number] / / [id number] Medtronic Neuro 8637-20 Synchromed Ii .78in [place] Filter Mesh Pouch Programmable - [id number] - [id number] Implanted:Qty: 1 on 09/25/2020 by Chichi Alvares MD at [facility] N/A: Abdomen [employer] 02/15/2022 8637-20 / [id number] / [employer] Rienzi 50mm Sector Hip Shell Acetabular Gription Sterile Latex Free [id number] - [id number] Implanted:Qty: 1 on 01/23/2023 by Jose Blankenship MD at [facility] Right: Hip [employer] 11/18/2032 [id number] / / [id number] [employer] Rienzi 6.5mm 35mm Acetabular Cancellous Screw Bone Sterile 1217-35-500 - [id number] Implanted:Qty: 1 on 01/23/2023 by Jose Blankenship MD at [facility] Right: Hip [employer] 10/18/2032 1217-35-500 / / [id number] [employer] Rienzi 50mm 32mm Hip Neutral Liner Acetabular Altrx Sterile Latex Free [id number] - [id number] Implanted:Qty: 1 on 01/23/2023 by Jose Blankenship MD at [facility] Right: Hip [employer] 11/19/2027 [id number] / / [id number] [employer] Actis Collar Hip 3 High Offset Stem Femoral [id number] - [id number] Implanted:Qty: 1 on 01/23/2023 by Jose Blankenship MD at [facility] Right: Hip [employer] 05/20/2032 [id number] / / [id number] [employer] Articul/Rachid 32mm Hip +1mm 12/14 Taper Head Femoral Biolox Delta Latex Free [id number] - [id number] Implanted:Qty: 1 on 01/23/2023 by Jose Blankenship MD at [facility] Right: Hip [employer] 06/20/2027 [id number] / / [id number] Procedures Procedure Name Priority Date/Time Associated Diagnosis Comments POCT LIPID PANEL Routine 10/09/2023 8:58 AM [employer] Lipid screening BASIC METABOLIC PANEL Routine 01/04/2023 7:27 AM CDT Hyperkalemia HEMOGLOBIN A1C Routine 12/27/2022 8:45 AM CDT Pre-operative exam from Last 3 Months or Most Recently Relevant to Health Maintenance Results * POCT lipid panel (10/09/2023 8:58 AM [employer]) Cholesterol, POC 120 mg/dL HDL, POC 54 mg/dL Triglycerides, POC 96 mg/dL LDL Cholesterol POC 47 mg/dL Chol/HDL Ratio, POC 0.9 Non-HDL Cholesterol, POC 66 mg/dL Cholesterol Total, POC 120 mg/dL Capillary blood 10/09/2023 8 :58 AM [employer] us Ryann Graham MD POINT OF CARE TEST ORDERABL ES Final Result * (ABNORMAL) Basic metabolic panel (01/04/2023 7:27 AM CDT) Glucose 97 65 - 99 mg/dL [facility] Comment: Fasting reference interval BUN 21 7 - 25 mg/dL [facility] Creatinine 1.12(H) 0.60 - 1.00 mg/dL [facility] eGFR 52(L) > OR = 60 mL/min/1.7 3m2 [facility] Comment: The eGFR is based on the CKD-EPI 2020 equation. To calculate the new eGFR from a previous Creatinine or Cystatin C result, go to https://www.kidney.org/professionals/ kdoqi/gfr%5Fcalculator BUN/creat ratio 19 6 - 22 (calc) [facility] Sodium 142 135 - 146 mmol/L [facility] Potassium, pl 4.6 3.5 - 5.3 mmol/L [facility] Chloride 108 98 - 110 mmol/L [facility] CO2 24 20 - 32 mmol/L [facility] Calcium 9.3 8.6 - 10.4 mg/dL [facility] Blood 01/04/2023 7:27 AM CDT 01/04/2023 7:28 AM CDT us Sammie Torres NP LAB BLOOD ORDERABLES Dania l Result [facility] [address] [place] [address] * (ABNORMAL) Hemoglobin A1c (12/27/2022 8:45 AM CDT) Hgb A1C 5.7(H) 4.0 - 5.6 % [facility] Estimated Average Glucose 117 mg/dL [facility] Comment: The ADA recommends reporting an estimated Average Glucose (eAG) with all Hemoglobin A1c results using the equation derived from a study of 507 normal and diabetic adults. Minority populations were underrepresented and children were not included. (Diabetes Care 31:6405-2480, 2008). The eAG is not equivalent to a fasting glucose. Blood 12/27/2022 8:45 AM CDT 12/27/2022 9:39 AM CDT us Jose Blankenship MD LAB BLOOD ORDERABLES Fin al Result [facility] [address] [facility] Department [place] [address] from Last 3 Months or Most Recently Relevant to Health Maintenance Insurance MEDICARE [employer] MEDICARE [employer] MEDICARE FOR LIFE Advance Directives For more information, please contact: [phone] Documents on File Type Date Recorded Patient Air Route Traffic Controller Expl anation Power of Blade Grinder 01/23/2023 6:02 AM Advance Directives and Livin g Will 01/23/2023 6:01 AM * Full Code (Latest Code Status on File) Date Activated Date Inactivated Comments 09/25/2020 12:50 PM 09/26/2020 2:22 PM * Full Code Date Activated Date Inactivated Comments 07/11/2018 1:42 PM 07/11/2018 5:26 PM * Full Code Date Activated Date Inactivated Comments 07/28/2017 3:35 PM 07/28/2017 7:52 PM Care Teams Collar Packer Relationship Specialty Start Date End Date Felipe Mckeon MD [address] [facility] [address] [place] [address] PCP - General Family Medicine 03/10/21 Felipe Mckeon MD [address] [facility] [address] [place] [address] 06/16/20 Jose Blankenship MD [address] [place] [address] [address] [place] [address] Surgeon Orthopedic Surgery 01/23/23
--- OUTSIDE RECORDS SUMMARY | 2024-10-02 10:41 | XMS_ITS | Clinical Summary ---
Author Organization [facility] Address [address] [place] [address] Care Team Providers Care Biophysics Professor Name Role Phone Felipe Mckeon MD Unavailable [phone] Felipe Mckeon MD Primary Care Provider Jose Blankenship MD Unavailable [phone] Allergies Active Allergy Reactions Criticality Noted Date [...] mg SL tabletIndicati ons:Coronary artery disease involving [place] coronary artery of [place] heart without angina pectoris Place 1 tablet [...] enteric coated tabletIndicati ons:Coronary artery disease involving [place] coronary artery of [place] heart without angina pectoris Take 1 tablet (81 mg total) by mouth daily 90 tablet 5 Active metoprolol tartrate (LOPRESSOR) 25 mg immediate release tabletIndicati ons:Hypertensi on associated with diabetes (HCC) Take 1 tablet (25 mg total) by mouth 2 (two) times a day 180 tablet 5 Active atorvastatin (LIPITOR) 40 mg tabletIndicati ons:Coronary artery disease involving [place] coronary artery of [place] heart without angina pectoris,Hyper cholesterolemi a Take 1 tablet (40 mg total) by mouth daily 90 tablet 5 Active ticagrelor (BRILINTA) 60 mg tabletIndicati ons:Coronary artery disease involving [place] coronary artery of [place] heart without angina pectoris Take 1 tablet (60 mg total) by mouth 2 (two) times a day 180 tablet 5 Active amLODIPine (NORVASC) 5 mg tabletIndicati ons:Hypertensi on associated with diabetes (HCC) Take 1 tablet (5 mg total) by mouth daily 90 tablet 3 4 025 Discontin ued(Reord er) atorvastatin (LIPITOR) 40 mg tabletIndicati ons:Coronary artery disease involving [place] coronary artery of [place] heart without angina pectoris,Hyper cholesterolemi a Take 1 tablet (40 mg total) by mouth daily 90 tablet 3 4 025 Discontin ued(Reord er) ticagrelor (BRILINTA) 60 mg tabletIndicati ons:Coronary artery disease involving [place] coronary artery of [place] heart without angina pectoris Take 1 tablet (60 mg total) by mouth 2 (two) times a day 180 tablet 3 4 025 Discontin ued(Reord er) aspirin 81 mg enteric coated tabletIndicati ons:Coronary artery disease involving [place] coronary artery of [place] heart without angina pectoris Take 1 tablet [...] enteric coated tabletIndicati ons:Coronary artery disease involving [place] coronary artery of [place] heart without angina pectoris Take 1 tablet [...] 40 mg tabletIndicati ons:Coronary artery disease involving [place] coronary artery of [place] heart without angina pectoris,Hyper cholesterolemi a Take 1 tablet (40 mg total) by mouth daily 90 tablet 5 025 Discontin ued(Reord er) ticagrelor (BRILINTA) 60 mg tabletIndicati ons:Coronary artery disease involving [place] coronary artery of [place] heart without angina pectoris Take 1 tablet [...] artery 06/18/2019 Coronary artery disease invo lving [place] coronary artery of [place] heart without angina pectoris 06/18/2019 History of non-ST elevation myocardial infarctio n (NSTEMI) 06/18/2019 Exotropia, alternating 09/13/2018 Resolved Problems Problem Noted Date Diagnosed Date Resolved Date Pre-op testing 09/25/2020 10/09/2023 Chronic pain syndrome 06/15/20202023 Overview (06/15/2020): Added automatically from request for surgery [id number] Encounters Date Type Department Care Team Description 09/10/[address] [facility] Cardiology [address] [place] [address] Edilberto Padilla MD Med Refill from Last 3 Months Immunizations Name Administration Dates Next Due Influenza, Unspecified 05/25/2020 Surgical History Surgery Date Site/Laterality Comments INTRATHECAL PUMP IMPLANTATION KNEE ARTHROPLASTY Right APPENDECTOMY CHOLECYSTECTOMY HYSTERECTOMY TUBAL LIGATION CATARACT EXTRACTION, BILATERAL Bilateral CARDIAC STENT PLACEMENT CORONARY ANGIOPLASTY CARDIAC CATHETERIZATION EYE SURGERY BUNIONECTOMY Bilateral JOINT REPLACEMENT Rigt knee 2010 BLADDER SURGERY 2022 Medical History Medical History Date Comments Hypertension Hyperlipidemia Type 2 diabetes mellitus (HCC) Restless leg syndrome Depression Arthritis Cataract Cataract Bilater al Surgery Cervical pain Lumbar pain Pain Pump Macular degeneration Anemia Coronary artery disease 05/2019 ACS, pro ximal RCA stent by Dr. Padilla Myocardial infarction (HCC) Motion sickness [place] (myocardial infarction) ([facility]) Anxiety Family History Medical History Relation Name Comments Heart attack Brother Macular degeneration Brother Heart attack Father Heart attack Mother Relation Name Status Comments Brother Father Mother Social History Tobacco Use Types Packs/Day Years [...] on file Legal Sex Female 3:51 AM INSPECTION MANAGER Gender Identity Female 11/29/2022 7:59 AM CDT Sexual Orientation Straight 11/29/2022 7: 59 AM CDT Obstetrics History Last Filed Vital Signs Vital Sign Reading Time Taken Comments Blood Pressure 134/70 10/09/2023 9:15 AM INSPECTION MANAGER Pulse 82 10/09/2023 8:53 AM INSPECTION MANAGER Temperature 36.4 C (97.5 F) 01/23/2023 11:00 AM CDT Respiratory Rate 20 01/23/2023 2:57 PM CDT Oxygen Saturation 94% 10/09/2023 8:53 AM INSPECTION MANAGER Inhaled Oxygen Concentration - - Weight 58.5 kg (129 lb) 10/09/2023 8:53 AM INSPECTION MANAGER Height 149.9 cm (4' 11 ) 10/09/2023 8:53 AM INSPECTION MANAGER Body Mass Index 26.05 10/09/2023 8:53 AM INSPECTION MANAGER Plan of Treatment Health Maintenance Due Date Last Done Comments Albumin Creatinine Ratio, Urine 1949 Colon Cancer Screening-Colonoscopy 1949 Depression Screening 1950 Hepatitis C Screening 1950 Osteoporosis Screening-Bone Density Scan 1949 Dilated Eye Exam 1949 Foot Exam 1949 Hepatitis B Screening 1967 Zoster Vaccine (2 of 3) 06/19/2012 04/24/2012 Well Visit 65+ 2014 Pneumococcal vaccine 65+ (3 of 3 - PPSV23 or PCV20) 06/21/2017 06/21/2016, 05/21/2012 DTaP/Tdap/Td Vaccine (2 - Td or Tdap) 05/20/2018 05/20/2008 Fall Risk Assessment 09/25/2021 09/25/2020 Hemoglobin A1C 06/29/2023 12/27/2022 eGFR 01/05/2024 01/04/2023, 12/27/2022 Influenza Vaccine (#1) 2024 , 05/27/2019, 05/18/2019, Additional history exists Lipid Panel 10/09/2024 10/09/2023, 01/2023, 09/06/2021, Additional history exists Medical Devices Implanted Type Area Senior Contracts Manager Device Identifier Shelf Expiration Date Model / Serial / Lot [employer] [id number] Deni 1.6mm 152mm Trocar Point 2 End Style 1 Wire Fixation - [id number] Implanted:Qty: 2 on 07/11/2018 by Natalie Jung DPM at [facility] Wire Left: Toes [employer] 09/20/2027 [id number] / / [id number] Deni Wire Implanted:Qty: 1 on 07/11/2018 by Natalie Jung DPM at [facility] Wire Left: Toes [employer] 09/20/2027 [id number] / / [id number] Medtronic Neuro 8637-20 Synchromed Ii .78in [place] Filter Mesh Pouch Programmable - [id number] - [id number] Implanted:Qty: 1 on 09/25/2020 by Chichi Alvares MD at [facility] N/A: Abdomen [employer] 02/15/2022 8637-20 / [id number] / [employer] [place] 50mm Sector Hip Shell Acetabular Gription Sterile Latex Free [id number] - [id number] Implanted:Qty: 1 on 01/23/2023 by Jose Blankenship MD at [facility] Right: Hip [employer] 11/18/2032 [id number] / / [id number] [employer] [place] 6.5mm 35mm Acetabular Cancellous Screw Bone Sterile 1217-35-500 - [id number] Implanted:Qty: 1 on 01/23/2023 by Jose Blankenship MD at [facility] Right: Hip [employer] 10/18/2032 1217-35-500 / / [id number] [employer] [place] 50mm 32mm Hip Neutral Liner Acetabular Altrx Sterile Latex Free [id number] - [id number] Implanted:Qty: 1 on 01/23/2023 by Jose Blankenship MD at [facility] Right: Hip [employer] 11/19/2027 [id number] / / [id number] [employer] Actis Collar Hip 3 High Offset Stem Femoral [id number] - [id number] Implanted:Qty: 1 on 01/23/2023 by Jose Blankenship MD at [facility] Right: Hip [employer] 05/20/2032 [id number] / / [id number] [employer] Articul/Rachid 32mm Hip +1mm 12/14 Taper Head Femoral Biolox Delta Latex Free [id number] - [id number] Implanted:Qty: 1 on 01/23/2023 by Jose Blankenship MD at [facility] Right: Hip [employer] 06/20/2027 [id number] / / [id number] Procedures Procedure Name Priority Date/Time Associated Diagnosis Comments POCT LIPID PANEL Routine 10/09/2023 8:58 AM INSPECTION MANAGER Lipid screening BASIC METABOLIC PANEL Routine 01/04/2023 7:27 AM CDT Hyperkalemia HEMOGLOBIN A1C Routine 12/27/2022 8:45 AM CDT Pre-operative exam from Last 3 Months or Most Recently Relevant to Health Maintenance Results * POCT lipid panel (10/09/2023 8:58 AM INSPECTION MANAGER) Cholesterol, POC 120 mg/dL HDL, POC 54 mg/dL Triglycerides, POC 96 mg/dL LDL Cholesterol POC 47 mg/dL Chol/HDL Ratio, POC 0.9 Non-HDL Cholesterol, POC 66 mg/dL Cholesterol Total, POC 120 mg/dL Capillary blood 10/09/2023 8 :58 AM INSPECTION MANAGER us Ryann Graham MD POINT OF CARE [...] 01/04/2023 7:28 AM CDT us Sammie Torres TYPEWRITERS FUNCTIONAL TESTER LAB BLOOD ORDERABLES Dania l Result [facility] [address] [place] [id number] * (ABNORMAL) Hemoglobin A1c (12/27/2022 8:45 AM CDT) Hgb A1C 5.7(H) 4.0 - 5.6 % [place] Estimated Average Glucose 117 mg/dL [place] Comment: The ADA recommends reporting an estimated Average Glucose (eAG) with all Hemoglobin A1c results using the equation derived from a study of 507 normal and diabetic adults. Minority populations were underrepresented and children were not included. (Diabetes Care 31:3059-0814, 2008). The eAG is not equivalent to a fasting glucose. Blood 12/27/2022 8:45 AM CDT 12/27/2022 9:39 AM CDT us Jose Blankenship MD LAB BLOOD ORDERABLES Fin al Result [place] [address] [facility] Department [place] [address] from Last 3 Months or Most Recently Relevant to Health Maintenance Insurance MEDICARE [facility] Address: [address] [address] [place] [address] [facility] MEDICARE FOR LIFE MEDICARE FOR LIFE Advance Directives For more information, please contact: [phone] Documents on File Type Date Recorded Patient Instant Print Operator Expl anation Power of Outside B2B Sales 01/23/2023 6:02 AM Advance Directives and Salma neville Will 01/23/2023 6:01 AM * Full Code (Latest Code Status on File) Date Activated Date Inactivated Comments 09/25/2020 12:50 PM 09/26/2020 2:22 PM * Full Code Date Activated Date Inactivated Comments 07/11/2018 1:42 PM 07/11/2018 5:26 PM * Full Code Date Activated Date Inactivated Comments 07/28/2017 3:35 PM 07/28/2017 7:52 PM Care Teams Biophysics Professor Relationship Specialty Start Date End Date Felipe Mckeon MD [address] [place] [address] PCP - General Family Medicine 03/10/21 Felipe Mckeon MD [address] [place] [address] 06/16/20 Jose Blankenship MD [address] [place] [address] [address] [place] [address] Surgeon Orthopedic Surgery 01/23/23
--- OUTSIDE RECORDS SUMMARY | 2024-10-02 10:42 | XMS_ITS | Encounter Summary ---
Author Organization [facility] Address [address] [facility] [place] [address] Care Team Providers Care Yardage Control Operator Forming Name Role Phone Felipe Mckeon MD Primary Care Provider Jeff Lau MD Unavailable [phone] Encounter Details Date Type Department Care Team (Late st Contact Info) Description 08/20/2018 Ophth Exam [facility] [address] [place] [address] Javier Shah MD [address] [place] [address] Social History Tobacco Use Types Packs/Day Years Used Date Smoking Tobacco: Never Smokeless Tobacco: Never Alcohol Use Standard Drinks/Week Comments No 0 (1 standard drink = 0.6 oz pur e alcohol) Sex and Gender Information Value Date Recorded Sex Assigned at Not on file Gender Identity Not on file Sexual Orientation Not on file documented as of this encounter Plan of Treatment Not on file documented as of this encounter Visit Diagnoses Not on filedocumented in this encounter Care Teams Yardage Control Operator Forming Relationship Specialty Start Date End Date Felipe Mckeon MD [address] [facility] [address] [place], [place] [id number] PCP - General Family Medicine 08/20/18 Jeff Lau MD [address] [place], [place] [id number] Ophthalmology 09/05/18 documented as of this encounter
--- OUTSIDE RECORDS SUMMARY | 2024-10-02 10:42 | XMS_ITS | Encounter Summary ---
Author Organization [facility] Address [address] [place] [address] Care Team Providers Care Hematology Specialist Name Role Phone Felipe Mckeon MD Primary Care Provider [phone] Jeff Lau MD Unavailable [phone] Encounter Details Date Type Department Care Team (Late st Contact Info) Description 08/22/2018 Ophth Exam [facility] [address] [place] [address] Tom Szymanski MD [address] [place] [address] Social History Tobacco Use Types Packs/Day Years [...] on filedocumented in this encounter Care Teams Hematology Specialist Relationship Specialty Start Date End Date Felipe Mckeon MD [address] [place] [address] PCP - General Family Medicine 08/20/18 Jeff Lau MD [address] [place] [address] Ophthalmology 09/05/18 documented as of this encounter
== END 2024-10-02 09:34 | disposition home or self-care (01) ==
PROVIDERS: PCP Family Medicine; Visit Provider Podiatrist Foot & Ankle Surgery
DX: M25.572 Pain in left ankle and joints of left foot (principal); M84.375D Stress fracture, left foot, subsequent encounter for fracture with routine healing
CPT/HCPCS: 73700